=== PATIENT | male | born 1940 | race Caucasian/White ===

== ENCOUNTER 2020-09-22 07:09 | Outpatient (REF) | payer MEDICARE, SELFPAY ==
[2020-09-22 07:47] LABS: MANUAL DIFF FLAG NO
[2020-09-22 07:57] LABS: Basophils Absolute Auto 0.1 X10*3/uL (0.0-0.2); Basophils Percent Auto 0.7 % (0-2); Eosinophils Absolute Auto 0.6 X10*3/uL (0.0-0.4); Eosinophils Percent Auto 8.8 % (0-4); Hematocrit 48.2 % (42-52); Hemoglobin 17.1 g/dl (14.0-18.0); Imm Gran Abs Auto 0.02 X10*3/uL (0.00-0.03); Imm Gran Pct Auto 0.3 % (0.0-0.4); Lymphocytes Absolute Auto 1.6 X10*3/uL (1.2-4.9); Lymphocytes Percent Auto 24.1 % (20-40); Mean Corpuscular HGB Conc 35.5 g/dl (31.0-36.0); Mean Corpuscular Hemoglobin 31.4 pg (27.0-33.0); Mean Corpuscular Volume 88.4 fL (80-98); Mean Platelet Volume 11.4 fL (9.4-12.4); Monocytes Absolute Auto 0.5 X10*3/uL (0.1-1.2); Monocytes Percent Auto 7.1 % (2-11); Platelet Count 238 X10*3/uL (160-400); Red Blood Count 5.45 X10*6/uL (4.60-5.80); Red Cell Distribution Width 12.2 % (11.0-16.0); White Blood Count 6.8 X10*3/uL (4.8-10.8)
[2020-09-22 08:04] LABS: Alanine Aminotransferase 23 U/L (0-40); Albumin Level 4.1 g/dL (3.5-5.0); Alkaline Phosphatase 63 U/L (39-117); Anion Gap 15 (12-20); Aspartate Amino Transferase 26 U/L (5-37); Bilirubin Total 0.9 mg/dL (0.0-1.0); Blood Urea Nitrogen 17 mg/dL (9-16); Calcium 9.2 mg/dL (8.4-10.2); Carbon Dioxide 28 mmol/L (22-29); Chloride 99 mmol/L (96-108); Cholesterol 150 mg/dL; Estimated Glomerular Filt Rate 55; Glucose Fasting 227 mg/dL (60-99); HDL Cholesterol 36 mg/dL; LDL Cholesterol Calculated 73 mg/dl; Potassium 3.8 mmol/l (3.3-5.1); Sodium 138 mmol/L (135-145); Total Protein 6.7 g/dL (6.5-8.0); Triglycerides 209 mg/dL
[2020-09-22 08:04] LABS: Glucose Urine UA >=1000 MG/DL (NEG); Leukocyte Esterase Urine NEG (NEG); Nitrite Urine NEG (NEG); Urine Blood NEG (NEG); Urine Ketones NEG (NEG); Urine Protein 2+ MG/DL (NEG-TRACE)
[2020-09-22 08:11] LABS: Appearance Urine CLEAR; Color Urine YELLOW
[2020-09-22 08:20] LABS: RBC Urine 0 /HPF (0); WBC Urine 0 /HPF (0-4)
[2020-09-22 08:26] LABS: Prostate Specific Antigen 0.88 ng/mL (<0.05-4.0)
[2020-09-22 09:37] LABS: Estimated Average Glucose 171 mg/dL; Hemoglobin A1c % 7.6 %
[2020-09-22 09:41] LABS: Creatinine Urine 68.32 mg/dL
[2020-09-22 09:42] LABS: Reflex LDLD? No
[2020-09-22 10:01] LABS: Microalbum/Creatinine Ratio Ur 1421.2 ug/mg cr
== END 2020-09-22 07:10 | disposition home or self-care (01) ==
LOC: HO.LAB 07:09
PROVIDERS: PCP Internal Medicine; Visit Provider Internal Medicine
DX: E78.00 Pure hypercholesterolemia, unspecified (principal); E11.9 Type 2 diabetes mellitus without complications; R79.89 Other specified abnormal findings of blood chemistry; R80.9 Proteinuria, unspecified; I10 Essential (primary) hypertension; E78.1 Pure hyperglyceridemia
CPT/HCPCS: 36415; 80053; 80061; 81001; 81003; 82043; 83036; 84153; 85025

== ENCOUNTER 2021-03-30 10:08 | Outpatient (REF) | payer MEDICARE, SELFPAY ==
[2021-03-30 11:09] LABS: Estimated Average Glucose 186 mg/dL; Hemoglobin A1c % 8.1 %
[2021-03-30 11:28] LABS: Alanine Aminotransferase 34 U/L (0-40); Albumin Level 4.3 g/dL (3.5-5.0); Alkaline Phosphatase 68 U/L (39-117); Aspartate Amino Transferase 36 U/L (5-37); Bilirubin Direct 0.3 mg/dL (0.0-0.5); Cholesterol 163 mg/dL; Glucose Fasting 263 mg/dL (60-99); HDL Cholesterol 41 mg/dL; LDL Cholesterol Calculated 64 mg/dl; Total Protein 6.7 g/dL (6.5-8.0); Triglycerides 291 mg/dL
[2021-03-30 11:30] LABS: Reflex LDLD? No
== END 2021-03-30 10:09 | disposition home or self-care (01) ==
LOC: HO.LNP 10:08
PROVIDERS: Visit Provider Internal Medicine
DX: E11.9 Type 2 diabetes mellitus without complications (principal); E78.1 Pure hyperglyceridemia; E78.00 Pure hypercholesterolemia, unspecified
CPT/HCPCS: 80061; 80076; 82947; 83036

== ENCOUNTER 2021-10-13 10:22 | Outpatient (REF) | payer MEDICARE, SELFPAY ==
[2021-10-13 10:27] LABS: MANUAL DIFF FLAG NO
[2021-10-13 10:42] LABS: Basophils Percent Auto 0.5 % (0-2); Eosinophils Absolute Auto 0.6 X10*3/uL (0.0-0.4); Eosinophils Percent Auto 7.6 % (0-4); Hematocrit 44.4 % (42.0-52.0); Hemoglobin 15.5 g/dl (14.0-18.0); Imm Gran Abs Auto 0.03 X10*3/uL (0.00-0.03); Imm Gran Pct Auto 0.4 % (0.0-0.4); Lymphocytes Absolute Auto 1.4 X10*3/uL (1.2-4.9); Lymphocytes Percent Auto 18.6 % (20-40); Mean Corpuscular HGB Conc 34.9 g/dl (31.0-36.0); Mean Corpuscular Hemoglobin 30.9 pg (27.0-33.0); Mean Corpuscular Volume 88.4 fL (80.0-98.0); Mean Platelet Volume 11.7 fL (9.4-12.4); Monocytes Absolute Auto 0.7 X10*3/uL (0.1-1.2); Monocytes Percent Auto 9.2 % (2-11); Neutrophils Absolute Auto 4.9 x10*3/uL (2.0-8.3); Neutrophils Percent Auto 63.7 % (45-73); Platelet Count 266 X10*3/uL (160-400); Red Blood Count 5.02 X10*6/uL (4.60-5.80); Red Cell Distribution Width 12.4 % (11.0-16.0); White Blood Count 7.7 X10*3/uL (4.8-10.8)
[2021-10-13 11:36] LABS: Alanine Aminotransferase 24 U/L (0-40); Albumin Level 3.8 g/dL (3.5-5.0); Alkaline Phosphatase 73 U/L (39-117); Anion Gap 14 (12-20); Aspartate Amino Transferase 29 U/L (5-37); Bilirubin Total 0.6 mg/dL (0.0-1.0); Blood Urea Nitrogen 17 mg/dL (9-16); Calcium 9.2 mg/dL (8.4-10.2); Carbon Dioxide 29 mmol/L (22-29); Chloride 99 mmol/L (96-108); Cholesterol 148 mg/dL; Estimated Glomerular Filt Rate 51; Glucose Fasting 246 mg/dL (60-99); HDL Cholesterol 30 mg/dL; LDL Cholesterol Calculated 73 mg/dl; Potassium 3.5 mmol/L (3.3-5.1); Sodium 138 mmol/L (135-145); Total Protein 6.4 g/dL (6.5-8.0); Triglycerides 227 mg/dL
[2021-10-13 11:59] LABS: PSA,Total (Free>4and<10) 0.72 ng/mL (0.00-4.00)
[2021-10-13 12:20] LABS: Reflex LDLD? No
[2021-10-13 12:49] LABS: Estimated Average Glucose 192 mg/dL; Hemoglobin A1c % 8.3 %
== END 2021-10-13 10:23 | disposition home or self-care (01) ==
LOC: HO.LNP 10:22
PROVIDERS: Visit Provider Internal Medicine
DX: E11.9 Type 2 diabetes mellitus without complications (principal); E78.00 Pure hypercholesterolemia, unspecified; I10 Essential (primary) hypertension; R79.89 Other specified abnormal findings of blood chemistry; R80.9 Proteinuria, unspecified; Z12.5 Encounter for screening for malignant neoplasm of prostate
CPT/HCPCS: 80053; 80061; 83036; 84153; 85025

== ENCOUNTER 2021-10-19 15:18 | Outpatient (REF) | payer MEDICARE, SELFPAY ==
[2021-10-19 15:29] LABS: Appearance Urine CLEAR; Color Urine YELLOW; Glucose Urine UA >=1000 MG/DL (NEG); Leukocyte Esterase Urine NEG (NEG); Nitrite Urine NEG (NEG); Urine Blood NEG (NEG); Urine Ketones NEG (NEG); Urine Protein 1+ MG/DL (NEG-TRACE)
[2021-10-19 15:53] LABS: RBC Urine 0-2 /HPF (0); Squamous Epithelial Cell Urine TRACE /LPF; WBC Urine 0-2 /HPF (0-4)
[2021-10-19 16:12] LABS: Creatinine Urine 29.09 mg/dL
[2021-10-19 16:32] LABS: Microalbum/Creatinine Ratio Ur 1766.9 ug/mg cr
== END 2021-10-19 15:19 | disposition home or self-care (01) ==
LOC: HO.LNP 15:18
PROVIDERS: Visit Provider Internal Medicine
DX: I10 Essential (primary) hypertension (principal); E11.9 Type 2 diabetes mellitus without complications; R80.9 Proteinuria, unspecified
CPT/HCPCS: 81001; 82043

== ENCOUNTER 2022-10-14 10:29 | Outpatient (REF) | payer MEDICARE, SELFPAY ==
[2022-10-14 10:34] LABS: MANUAL DIFF FLAG NO
[2022-10-14 10:44] LABS: Basophils Absolute Auto 0.1 X10*3/uL (0.0-0.2); Eosinophils Absolute Auto 0.9 X10*3/uL (0.0-0.4); Eosinophils Percent Auto 11.5 % (0-4); Hematocrit 47.3 % (42.0-52.0); Hemoglobin 16.4 g/dl (14.0-18.0); Imm Gran Abs Auto 0.01 X10*3/uL (0.00-0.03); Imm Gran Pct Auto 0.1 % (0.0-0.4); Lymphocytes Absolute Auto 1.8 X10*3/uL (1.2-4.9); Mean Corpuscular HGB Conc 34.7 g/dl (31.0-36.0); Mean Corpuscular Hemoglobin 30.8 pg (27.0-33.0); Mean Corpuscular Volume 88.9 fL (80.0-98.0); Mean Platelet Volume 11.9 fL (9.4-12.4); Monocytes Absolute Auto 0.5 X10*3/uL (0.1-1.2); Monocytes Percent Auto 6.9 % (2-11); Neutrophils Absolute Auto 4.2 x10*3/uL (2.0-8.3); Neutrophils Percent Auto 56.5 % (45-73); Platelet Count 246 X10*3/uL (160-400); Red Blood Count 5.32 X10*6/uL (4.60-5.80); Red Cell Distribution Width 12.5 % (11.0-16.0); White Blood Count 7.4 X10*3/uL (4.8-10.8)
[2022-10-14 10:59] LABS: Appearance Urine Clear; Color Urine Yellow; Glucose Urine UA >=1000 mg/dL (Negative); Leukocyte Esterase Urine Negative (Negative); Nitrite Urine Negative (Negative); Specific Gravity - Urine 1.015 (1.005-1.025); UMIC TRIGGER UA YES; Urine Blood Negative (Negative); Urine Ketones Negative (Negative); Urine Protein 100 (2+) mg/dL (Neg-Trace)
[2022-10-14 11:00] LABS: Alanine Aminotransferase 18 U/L (0-40); Albumin Level 4.2 g/dL (3.5-5.0); Alkaline Phosphatase 70 U/L (39-117); Anion Gap 16 (12-20); Aspartate Amino Transferase 27 U/L (5-37); Bilirubin Total 0.8 mg/dL (0.0-1.0); Blood Urea Nitrogen 23 mg/dL (9-16); Calcium 9.5 mg/dL (8.4-10.2); Carbon Dioxide 28 mmol/L (22-29); Chloride 97 mmol/L (96-108); Cholesterol 177 mg/dL; Estimated Glomerular Filt Rate 44; Glucose Fasting 243 mg/dL (60-99); HDL Cholesterol 35 mg/dL; LDL Cholesterol Calculated 83 mg/dl; Potassium 3.7 mmol/L (3.3-5.1); Sodium 137 mmol/L (135-145); Total Protein 6.8 g/dL (6.5-8.0); Triglycerides 296 mg/dL
[2022-10-14 11:01] LABS: Bacteria Urine None Seen (None Seen); Hyaline Casts Urine 0-2 /LPF (0-2); RBC Urine 0-2 /HPF (0-2); Squamous Epithelial Cell Urine 0-2 /HPF (0-2); WBC Urine 0-5 /HPF (0-5)
[2022-10-14 11:14] LABS: Creatinine Urine 40.01 mg/dL
[2022-10-14 11:20] LABS: Estimated Average Glucose 171 mg/dL; Hemoglobin A1c % 7.6 %
[2022-10-14 11:22] LABS: PSA,Total (Free>4and<10) 0.69 ng/mL (0.00-4.00)
[2022-10-14 11:25] LABS: Microalbum/Creatinine Ratio Ur 1407.1 ug/mg cr
== END 2022-10-14 10:30 | disposition home or self-care (01) ==
LOC: HO.LNP 10:29
PROVIDERS: Visit Provider Internal Medicine
DX: Z12.5 Encounter for screening for malignant neoplasm of prostate (principal); I10 Essential (primary) hypertension; E11.9 Type 2 diabetes mellitus without complications; E78.00 Pure hypercholesterolemia, unspecified; R79.89 Other specified abnormal findings of blood chemistry
CPT/HCPCS: 80053; 80061; 81001; 82043; 83036; 84153; 85025

== ENCOUNTER 2022-11-08 12:39 | Outpatient (REF) | payer MEDICARE, SELFPAY ==
--- NOTE | ~2022-11-08 | US_ITS ---
EXAMINATION: US SCROTUM CLINICAL INFORMATION: Testicular abnormality. COMPARISON: None TECHNIQUE: A sonogram of the scrotum was performed assessing bernal-scale appearance and color Doppler flow. Spectral Doppler analysis of the arterial and venous flow were performed in the testes bilaterally. FINDINGS: RIGHT: Right testicle measures 3.6 x 2.4 x 3.1 cm, volume 14.5 mL. No focal testicular parenchymal lesions are visualized. 2 punctate calcifications are seen. Spectral Doppler analysis of the arterial and venous flow is normal in the right testis. A mobile scrotal kehinde is seen in the right sac measuring 2 mm in size. Right epididymal head is normal in size. No right hydrocele or varicocele is seen. Right epididymal Doppler flow is normal. LEFT: Left testicle measures 3.7 x 2.3 x 2.4 cm, volume 10.7 mL. No focal testicular parenchymal lesions are visualized. Spectral Doppler analysis of the arterial and venous flow is normal in the left testis. There is an extratesticular 6 mm cyst noted adjacent to the left testicle. Left epididymal head is normal in size. No left hydrocele or varicocele is seen. Left epididymal Doppler flow is normal. US/US scrotum IMPRESSION: 1. The right testicle is slightly larger than the left but no focal mass is seen. 2. Small left extratesticular cyst. 3. Small right scrotal kehinde. 4. 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 In the absence of any other risk factors for testicular cancer (e.g., personal history of testicular cancer, a father or brother with testicular cancer, history of cryptorchidism or maldescent, testicular atrophy, or other risk factors), no further imaging or biochemical follow up is necessary; all that is recommended is routine monthly testicular self-examination. However, if the patient has risk factors for testicular cancer, referral to a urologist for evaluation and determination of an optimal follow up strategy is recommended.
== END 2022-11-08 12:40 | disposition home or self-care (01) ==
LOC: HO.US 12:39
PROVIDERS: PCP Internal Medicine; Visit Provider Internal Medicine
DX: N50.9 Disorder of male genital organs, unspecified (principal)
CPT/HCPCS: 76870

== ENCOUNTER 2023-02-25 10:35 | Outpatient (REF) | payer MEDICARE, SELFPAY ==
[2023-02-25 11:03] LABS: Alanine Aminotransferase 22 U/L (0-40); Alkaline Phosphatase 67 U/L (39-117); Aspartate Amino Transferase 27 U/L (5-37); Bilirubin Direct 0.2 mg/dL (0.0-0.5); Bilirubin Total 0.9 mg/dL (0.0-1.0); Cholesterol 177 mg/dL; Glucose Fasting 254 mg/dL (60-99); HDL Cholesterol 34 mg/dL; LDL Cholesterol Calculated 75 mg/dl; Total Protein 6.5 g/dL (6.5-8.0); Triglycerides 343 mg/dL
[2023-02-25 11:13] LABS: Estimated Average Glucose 209 mg/dL; Hemoglobin A1c % 8.9 %
[2023-02-25 11:55] LABS: Reflex LDLD? No
== END 2023-02-25 10:36 | disposition home or self-care (01) ==
LOC: HO.LNP 10:35
PROVIDERS: Visit Provider Internal Medicine
DX: E78.00 Pure hypercholesterolemia, unspecified (principal); E11.9 Type 2 diabetes mellitus without complications
CPT/HCPCS: 80061; 80076; 82947; 83036

== ENCOUNTER 2023-10-18 11:13 | Outpatient (REF) | payer MEDICARE, SELFPAY ==
[2023-10-18 11:31] LABS: MANUAL DIFF FLAG NO
[2023-10-18 12:00] LABS: Basophils Percent Auto 0.5 % (0-2); Eosinophils Absolute Auto 0.5 X10*3/uL (0.0-0.4); Eosinophils Percent Auto 7.7 % (0-4); Hematocrit 44.8 % (42.0-52.0); Hemoglobin 15.8 g/dl (14.0-18.0); Imm Gran Abs Auto 0.01 X10*3/uL (0.00-0.03); Imm Gran Pct Auto 0.2 % (0.0-0.4); Lymphocytes Absolute Auto 1.7 X10*3/uL (1.2-4.9); Lymphocytes Percent Auto 29.9 % (20-40); Mean Corpuscular HGB Conc 35.3 g/dl (31.0-36.0); Mean Corpuscular Hemoglobin 30.7 pg (27.0-33.0); Mean Corpuscular Volume 87.2 fL (80.0-98.0); Mean Platelet Volume 12.2 fL (9.4-12.4); Monocytes Absolute Auto 0.5 X10*3/uL (0.1-1.2); Monocytes Percent Auto 8.1 % (2-11); Neutrophils Absolute Auto 3.1 x10*3/uL (2.0-8.3); Neutrophils Percent Auto 53.6 % (45-73); Platelet Count 221 X10*3/uL (160-400); Red Blood Count 5.14 X10*6/uL (4.60-5.80); Red Cell Distribution Width 12.6 % (11.0-16.0); White Blood Count 5.8 X10*3/uL (4.8-10.8)
[2023-10-18 12:02] LABS: Appearance Urine Clear; Color Urine Yellow; Glucose Urine UA >=1000 mg/dL (Negative); Leukocyte Esterase Urine Negative (Negative); Nitrite Urine Negative (Negative); PH 6.5 (5.0-9.0); Specific Gravity - Urine 1.015 (1.005-1.025); UMIC TRIGGER UACC YES; Urine Blood Negative (Negative); Urine Ketones Negative (Negative); Urine Protein 300 (3+) mg/dL (Neg-Trace)
[2023-10-18 12:06] LABS: Bacteria Urine None Seen (None Seen); Hyaline Casts Urine 0-2 /LPF (0-2); RBC Urine 0-2 /HPF (0-2); Squamous Epithelial Cell Urine 0-2 /HPF (0-2); WBC Urine 0-5 /HPF (0-5)
[2023-10-18 12:12] LABS: Estimated Average Glucose 183 mg/dL
[2023-10-18 12:23] LABS: Alanine Aminotransferase 25 U/L (0-40); Albumin Level 3.7 g/dL (3.5-5.0); Alkaline Phosphatase 70 U/L (39-117); Anion Gap 13 (12-20); Aspartate Amino Transferase 34 U/L (5-37); Bilirubin Direct 0.2 mg/dL (0.0-0.5); Bilirubin Total 0.6 mg/dL (0.0-1.0); Blood Urea Nitrogen 24 mg/dL (9-16); Carbon Dioxide 28 mmol/L (22-29); Chloride 101 mmol/L (96-108); Cholesterol 149 mg/dL (<200); Estimated Glomerular Filt Rate 41; Glucose Fasting 219 mg/dL (60-99); HDL Cholesterol 30 mg/dL (>40); LDL Cholesterol Calculated 71 mg/dL (<100); Potassium 3.3 mmol/L (3.3-5.1); Sodium 139 mmol/L (135-145); Total Protein 6.7 g/dL (6.5-8.0); Triglycerides 240 mg/dL (<150)
[2023-10-18 12:52] LABS: Creatinine Urine 42.66 mg/dL
== END 2023-10-18 11:14 | disposition home or self-care (01) ==
LOC: HO.LNP 11:13
PROVIDERS: Visit Provider Internal Medicine
DX: I10 Essential (primary) hypertension (principal); E11.9 Type 2 diabetes mellitus without complications; R79.89 Other specified abnormal findings of blood chemistry; E78.00 Pure hypercholesterolemia, unspecified; Z12.5 Encounter for screening for malignant neoplasm of prostate
CPT/HCPCS: 80053; 80061; 80076; 81001; 81003; 82043; 82248; 82570; 83036; 84153; 85025

== ENCOUNTER 2024-04-12 10:43 | Outpatient (REF) | payer MEDICARE, SELFPAY ==
[2024-04-12 11:02] LABS: Estimated Average Glucose 163 mg/dL; Hemoglobin A1c % 7.3 % (<6.0)
[2024-04-12 11:03] LABS: Alanine Aminotransferase 18 U/L (0-40); Albumin Level 3.8 g/dL (3.5-5.0); Alkaline Phosphatase 77 U/L (39-117); Aspartate Amino Transferase 25 U/L (5-37); Bilirubin Direct 0.2 mg/dL (0.0-0.5); Bilirubin Total 0.5 mg/dL (0.0-1.0); Cholesterol 171 mg/dL (<200); Glucose Fasting 192 mg/dL (60-99); HDL Cholesterol 36 mg/dL (>40); LDL Cholesterol Calculated 78 mg/dL (<100); Total Protein 6.8 g/dL (6.5-8.0); Triglycerides 289 mg/dL (<150)
[2024-04-12 12:35] LABS: Reflex LDLD? No
== END 2024-04-12 10:44 | disposition home or self-care (01) ==
LOC: HO.LNP 10:43
PROVIDERS: Visit Provider Internal Medicine
DX: E11.9 Type 2 diabetes mellitus without complications (principal); E78.00 Pure hypercholesterolemia, unspecified
CPT/HCPCS: 80061; 80076; 82947; 83036

== ENCOUNTER 2024-10-19 10:43 | Outpatient (REF) | payer MEDICARE, SELFPAY ==
[2024-10-19 10:46] LABS: MANUAL DIFF FLAG NO
[2024-10-19 11:23] LABS: Basophils Absolute Auto 0.1 X10*3/uL (0.0-0.2); Basophils Percent Auto 0.5 % (0-2); Eosinophils Absolute Auto 0.5 X10*3/uL (0.0-0.4); Eosinophils Percent Auto 5.3 % (0-4); Hematocrit 45.1 % (42.0-52.0); Hemoglobin 15.4 g/dl (14.0-18.0); Imm Gran Abs Auto 0.04 X10*3/uL (0.00-0.03); Imm Gran Pct Auto 0.4 % (0.0-0.4); Lymphocytes Absolute Auto 1.5 X10*3/uL (1.2-4.9); Lymphocytes Percent Auto 15.6 % (20-40); Mean Corpuscular HGB Conc 34.1 g/dl (31.0-36.0); Mean Corpuscular Hemoglobin 30.3 pg (27.0-33.0); Mean Corpuscular Volume 88.6 fL (80.0-98.0); Mean Platelet Volume 11.9 fL (9.4-12.4); Monocytes Absolute Auto 0.6 X10*3/uL (0.1-1.2); Monocytes Percent Auto 6.7 % (2-11); Neutrophils Absolute Auto 6.9 x10*3/uL (2.0-8.3); Neutrophils Percent Auto 71.5 % (45-73); Platelet Count 272 X10*3/uL (160-400); Red Blood Count 5.09 X10*6/uL (4.60-5.80); Red Cell Distribution Width 12.8 % (11.0-16.0); White Blood Count 9.6 X10*3/uL (4.8-10.8)
[2024-10-19 11:24] LABS: Appearance Urine Clear; Color Urine Yellow; Glucose Urine UA >=1000 mg/dL (Negative); Leukocyte Esterase Urine Negative (Negative); Nitrite Urine Negative (Negative); PH 6.5 (5.0-9.0); Specific Gravity - Urine 1.015 (1.005-1.025); UMIC TRIGGER UACC YES; Urine Blood Trace (Negative); Urine Ketones Negative (Negative); Urine Protein 300 (3+) mg/dL (Neg-Trace)
[2024-10-19 11:28] LABS: Bacteria Urine None Seen (None Seen); Hyaline Casts Urine 0-2 /LPF (0-2); RBC Urine 0-2 /HPF (0-2); Squamous Epithelial Cell Urine 0-2 /HPF (0-2); WBC Urine 0-5 /HPF (0-5)
[2024-10-19 11:58] LABS: Estimated Average Glucose 189 mg/dL; Hemoglobin A1C 258.3694 umol/L; Hemoglobin A1c % 8.2 % (<6.0); Total Hemoglobin (HGBA1C) 3899.0675 umol/L
[2024-10-19 12:02] LABS: Alanine Aminotransferase 12 U/L (0-40); Albumin Level 3.6 g/dL (3.5-5.0); Alkaline Phosphatase 101 U/L (39-117); Anion Gap 13 (12-20); Aspartate Amino Transferase 31 U/L (5-37); Bilirubin Direct 0.1 mg/dL (0.0-0.5); Bilirubin Total 0.5 mg/dL (0.0-1.0); Blood Urea Nitrogen 22 mg/dL (9-16); Calcium 9.1 mg/dL (8.4-10.2); Carbon Dioxide 27 mmol/L (22-29); Chloride 101 mmol/L (96-108); Cholesterol 191 mg/dL (<200); Estimated Glomerular Filt Rate 31; Glucose Fasting 211 mg/dL (60-99); HDL Cholesterol 32 mg/dL (>40); LDL Cholesterol Calculated 99 mg/dL (<100); Potassium 3.5 mmol/L (3.3-5.1); Sodium 137 mmol/L (135-145); Total Protein 6.9 g/dL (6.5-8.0); Triglycerides 302 mg/dL (<150)
[2024-10-19 12:09] LABS: PSA,Total (Free>4and<10) 0.89 ng/mL (0.00-4.00)
[2024-10-19 12:13] LABS: Microalbum/Creatinine Ratio Ur 4392.5 ug/mg cr (<30)
--- OUTSIDE RECORDS SUMMARY | 2024-10-19 12:19 | XMS_ITS ---
Author Organization Juan Manuel Castorena MD Address [address] [place] [phone] Care Team Providers Care Utility Specialist Name Role Phone Juan Manuel Castorena Primary Care Provider [phone] RESULTS Component Value Reference Range Notes Complete Blood Count Auto Di ff (Not yet reviewed by provider) Interpretation: Performing Lab:[facility], [address] [place] [phone] Notes/Report: White Blood Count 9.6 4.8-10.8 X10*3/uL Red Blood Count 5.09 4.60-5.80 X10*6/uL Hemoglobin 15.4 14.0-18.0 g/dl Hematocrit 45.1 42.0-52.0 % Mean Corpuscular Volume 88.6 80.0-98.0 fL Mean Corpuscular Hemoglobin 30.3 27.0-33.0 pg Mean Corpuscular HGB Conc 34.1 31.0-36.0 g/dl Red Cell Distribution Width 12.8 11.0-16.0 % Platelet Count 272 160-400 X10*3/uL Mean Platelet Volume 11.9 9.4-12.4 fL Neutrophils Percent Auto 71.5 45-73 % Imm Gran Pct Auto 0.4 0.0-0.4 % Lymphocytes Percent Auto 15.6 20-40 % Monocytes Percent Auto 6.7 2-11 % Eosinophils Percent Auto 5.3 0-4 % Basophils Percent Auto 0.5 0-2 % NRBC Pct Auto 0.0 0.0-0.2 /100WBC Neutrophils Absolute Auto 6.9 2.0-8.3 x10*3/u L Imm Gran Abs Auto 0.04 0.00-0.03 X10*3/uL Lymphocytes Absolute Auto 1.5 1.2-4.9 X10*3/u L Monocytes Absolute Auto 0.6 0.1-1.2 X10*3/uL Eosinophils Absolute Auto 0.5 0.0-0.4 X10*3/u L Basophils Absolute Auto 0.1 0.0-0.2 X10*3/uL NRBC Abs Auto 0.000 0.0-0.012 X10*3/uL Comprehensive [place]. Panel Fa st (Not yet reviewed by provider) Interpretation: Performing Lab:[facility], [address] [place] [phone] Notes/Report: Sodium 137 135-145 mmol/L Potassium 3.5 3.3-5.1 mmol/L Chloride 101 96-108 mmol/L Carbon Dioxide 27 22-29 mmol/L Anion Gap 13 12-20 Blood Urea Nitrogen 22 9-16 mg/dL Creatinine 2.08 0.5-1.4 mg/dL Estimated Glomerular Filt Rate 31 Chronic Kidney Disease: Estimated GFR < 60 mL/min/1.73m2 Severe Kidney Disease: Estimated GFR < 15 mL/min/1.73m2 Glucose Fasting 211 60-99 mg/dL A fasting glucose of 126 mg/dl or greater on more than one occasion is considered diagnostic of diabetes. Calcium 9.1 8.4-10.2 mg/dL Bilirubin Total 0.5 0.0-1.0 mg/dL Aspartate Amino Transferase 31 5-37 U/L Alanine Aminotransferase 12 0-40 U/L Total Protein 6.9 6.5-8.0 g/dL Albumin Level 3.6 3.5-5.0 g/dL Alkaline Phosphatase 101 39-117 U/L UA ClnCatch+Micro w/rflx Cul t (Not yet reviewed by provider) Interpretation: Performing Lab:[facility], [address] [place] [phone] Notes/Report: Urine, Clean Catch Color Urine Yellow Appearance Urine Clear PH 6.5 5.0-9.0 Glucose Urine UA >=1000 Negative mg/dL Urine Blood Trace Negative Specific Superior - Urine 1.015 1.005-1.025 Urine Protein 300 (3+) Neg-Trace mg/dL Urine Ketones Negative Negative mg/dL Nitrite Urine Negative Negative Leukocyte Esterase Urine Negative Negative RBC Urine 0-2 0-2 /HPF WBC Urine 0-5 0-5 /HPF Squamous Epithelial Cell Urine 0-2 0-2 /HPF Bacteria Urine None Seen None Seen Hyaline Casts Urine 0-2 0-2 /LPF Liver Panel Reviewed date:10/19/2024 12:13:11 PM Interpretation: Performing Lab:[facility], [address] [place] [phone] Notes/Report: Bilirubin Direct 0.1 0.0-0.5 mg/dL Lipid Panel Reviewed date:10/19/2024 12:13:50 PM Interpretation: Performing Lab:[facility], [address] [place] [phone] Notes/Report: Triglycerides 302 <150 mg/dL Desirable Triglyceride: less than 150 mg/dL Borderline High Triglyceride 150-199 mg/dL High Triglyceride: 200-499 mg/dL Very High Triglyceride: greater than or equal to 5OO mg/dL Cholesterol 191 <200 mg/dL Desirable Cholesterol: less than 200 mg/dL Borderline High Cholesterol: 200-239 mg/dL High Cholesterol: greater than 239 mg/dL LDL Cholesterol Calculated 99 <100 mg/dL Desirable LDL: less than 100 mg/dL Near Optimal/Above Optimal LDL: 110-129 mg/dL Borderline High LDL: 130-159 mg/dL High LDL: 160-189 mg/dL Very High LDL: greater than or equal to 190 mg/dL HDL Cholesterol 32 >40 mg/dL Desirable HDL: greater than 40 mg/dL Note: This HDL assay may give artificially low results in patients with liver disease. PSA,Total (Free>4and<10) Reviewed date:10/19/2024 12:17:51 PM Interpretation: Performing Lab:[address] [phone] Notes/Report: PSA,Total (Free>4and<10) 0.89 0.00-4.00 ng/mL A Free PSA was not performed: The percentage of Free PSA can be used to enhance the differentiation of prostate cancer from benign prostatic disease in subjects whose PSA levels are between 4.0 and 10.0 ng/mL. For subjects whose PSA levels are below 4.0 or above 10.0 ng/mL, the risk of prostate cancer is determined on the basis of the PSA alone. Therefore the % Free PSA is recommended only for those subjects whose PSA levels are between 4.0 and 10.0 ng/mL. PSA methodology: Guzman Alinity i Chemiluminescent Microparticle Immunoassay (CMIA) Microalbumin, Random Reviewed date:10/19/2024 12:16:57 PM Interpretation: Performing Lab:[address] [phone] Notes/Report: Creatinine Urine 42.80 Microalbumin Urine 1880.0 Verified by dilution Microalbum/Creatinine Ratio Ur 4392.5 <30 ug/mg cr Albumin/Creatinine Ratio Reference Ranges: Normal: < 30 ug/mg creatinine Microalbuminuria: 30 - 300 ug/mg creatinine Clinical Albuminuria: > 300 ug/mg creatinine Hemoglobin A1c Reviewed date:10/19/2024 12:17:43 PM Interpretation: Performing Lab:[address] [phone] Notes/Report: Hemoglobin A1c % 8.2 <6.0 % Hemoglobin A1C Reference Range Adults: 4.8 - 6.0 % Non diabetic: < 6.0 % Goal: < 7.0 % Additional Action Suggested: > 8.0 % Note: Hemoglobin A1c results are invalid for patients with abnormal amounts of HbF. Blood transfusions may impact the HbA1c concentration in the patient sample. Estimated Average Glucose 189 eAG = Estimated average glucose which is %A1C expressed as average glucose, using the formula of the [id number] Average Glucose study (ADAG), Diabetes Care, Vol.31,#8, May. 2007 REASON FOR VISIT FASTING LABS Encounters Encounter Location Date Provider Diagnosis Juan Manuel Castorena MD [address] [place] [address] [address] [place], [place] [phone] 10/19/2024 Juan Manuel Castorena Essential hypertensi on I10 ; Type 2 diabetes mellitus without complication E11.9 ; Pure hypercholesterolemia E78.00 and Elevated LFTs R79.89 ASSESSMENTS Encounter Date Diagnosis Assessment Notes Treatment Notes Treatment Clinical Notes 10/19/2024 Essential hypertensi on (ICD-10 - I10) 10/19/2024 Type 2 diabetes laurel itus without complication (ICD-10 - E11.9) 10/19/2024 Pure hypercholestero lemia (ICD-10 - E78.00) 10/19/2024 Elevated LFTs (ICD-1 0 - R79.89) PLAN OF TREATMENT Pending Test Test Name Order Date Complete Blood Count Auto Diff 5 Comprehensive [place]. Panel Fast 5 UA ClnCatch+Micro w/rflx Cult 10/19/2024 Next Appt Details Provider Name:Juan Manuel narayanan, 10/26/2024 08:30:00 AM, [address] [place] [address], [address], [place], [place], [phone],
--- OUTSIDE RECORDS SUMMARY | 2024-10-19 12:19 | XMS_ITS ---
Author Organization Juan Manuel Castorena MD Address [address] [place] [phone] Care Team Providers Care Stencil Cutter Machine Name Role Phone Juan Manuel Castorena Primary Care Provider ALLERGIES No Known Allergies RESULTS Component Value Reference Range Notes Hemoglobin A1c Reviewed date:07/23/2024 08:14:10 AM Interpretation: Performing Lab: Notes/Report: Value Hemoglobin A1c 7.5 Glucose, finger stick Reviewed date:07/23/2024 08:10:10 AM Interpretation: Performing Lab: Notes/Report: Value 203 REASON FOR VISIT 3 month dm MEDICATIONS Medication SIG (Take, Route, Frequency, Duration) Notes Start Date End Date Status Insulin Glargine 100 UNIT/ML as directed Subcutaneous 10 units per day 03/03/2023 Not-Taking guaiFENesin-Codeine 100-10 MG/5ML 10 mL as needed Orally every 6 hrs for 10 days 09/06/2022 Not-Taking Atorvastatin Calcium 20 MG TAKE 1 TABLET BY MOUTH EVERY DAY Active Paxlovid (300/100) 20 x 150 MG & 10 x 100MG as directed Orally 2 tabs nirm and 1 tab carola for 5 days 07/20/2022 Not-Taking Omeprazole 20 MG TAKE 1 CAPSULE BY MOUTH IN THE MORNING 30 MINS BEFORE BREAKFAST Active FreeStyle Lancets 0 used to test blood sugar daily invitro DX E11.9 once a day for 90 days 08/12/2016 Active FreeStyle Lite Test - use to test blood sugar DX:E11.9 In Vitro once a day for 30 days 04/17/2019 Active BD Pen Needle Micro U/F 32G X 6 MM DIRECTED UNDER SKIN DAILY 90 DAYS for 90 Active Betamethasone Dipropionate Aug 0.05 % APPLY TO AFFECTED AREA EVERY DAY for 30 Active ProAir HFA 90MCG INHALE 2 PUFFS EVERY 4 HOURS NEEDED Inhalation every 4 hrs Active Losartan Potassium 100 MG TAKE 1 TABLET BY MOUTH EVERY DAY Active metFORMIN HCl 500 MG TAKE 2 TABLETS BY MOUTH TWICE A DAY Active amLODIPine Besylate 10 MG TAKE 1 TABLET BY MOUTH EVERY DAY Active Carvedilol 25 MG TAKE 1 TABLET BY MOUTH TWICE A DAY WITH FOOD Active hydroCHLOROthiazide 25 MG TAKE 1 TABLET BY MOUTH EVERY DAY IN THE MORNING Active Farxiga 5 MG TAKE 1 TABLET BY MOUTH EVERY DAY IN THE MORNING Active Basaglar KwikPen 100 UNIT/mL, 3 mL pen as directed Subcutaneous 15 units daily 03/03/2023 Active Glimepiride 1MG TAKE 1 TABLET WITH BREAKFAST OR FIRST MAIN MEAL OF THE DAY Orally Once a day for 90 Not-Taking VITAL SIGNS BMI 29.32 kg/m2 07/23/2024 Blood pressure systolic 164 mm Hg 07/23/20 24 Blood pressure diastolic 62 mm Hg 024 Height 69.25 in 07/23/2024 Weight 200 lbs 07/23/2024 weight is down 4 pounds [facility] 04-24-24 Encounters Encounter Location Date Provider Diagnosis Juan Manuel Castorena MD [address] [place] [address] Drive [address] [place] [phone] 07/23/2024 Juan Manuel Castorena Type 2 diabetes mellitus without complication E11.9 and Essential hypertension I10 ASSESSMENTS Encounter Date Diagnosis Assessment Notes Treatment Notes Treatment Clinical Notes 07/23/2024 Type 2 diabetes mellitus without complication (ICD-10 - E11.9) 07/23/2024 Essential hypertension (ICD-10 - I10) will continue current rtegiment and will continue to monitor PLAN OF TREATMENT Medication Medication Name Sig Start Date Stop Date Notes Losartan Potassium 100 MG TAKE 1 TABLET BY MOUTH EVERY DAY metFORMIN HCl 500 MG TAKE 2 TABLETS BY M OUTH TWICE A DAY amLODIPine Besylate 10 MG TAKE 1 TABLET BY MOUTH EVERY DAY Carvedilol 25 MG TAKE 1 TABLET BY MAGO TH TWICE A DAY WITH FOOD hydroCHLOROthiazide 25 MG TAKE 1 TABLET BY MOUTH EVERY DAY IN THE MORNING Farxiga 5 MG TAKE 1 TABLET BY MAGO TH EVERY DAY IN THE MORNING Basaglar KwikPen 100 UNIT/mL , 3 mL pen as directed Subcutaneous 15 units daily 03/03/2023 Treatment Notes Assessment Notes Essential hypertension will continue cur rent rtegiment and will continue to monitor Next Appt Details Provider Name:Juan Manuel narayanan, 10/26/2024 08:30:00 AM, [address] [facility], [address], [place], [place], [phone], Progress Notes * Examination Category Sub-Category Detail Notes General Examination GENERAL APPEARANCE: alert, w ell hydrated, in no distress HEAD: normocephalic HEART: regular rate and rhy thm, no murmurs, rubs, gallops LUNGS: no wheezes, rales, r honchi, good air movement, clear to auscultation bilaterally SKIN: good turgor
--- OUTSIDE RECORDS SUMMARY | 2024-10-19 12:20 | XMS_ITS | Patient Health Record ---
Author Organization Juan Manuel Castorena MD Address [address] [place] [phone] Care Team Providers Care Rubber Process Hand Name Role Phone Juan Manuel Castorena Primary Care Provider ALLERGIES No Known Allergies RESULTS Component Value Reference Range Notes Hemoglobin A1c Reviewed date:01/19/2024 08:44:38 AM Interpretation: Performing Lab: Notes/Report: Value Hemoglobin A1c 9.8 Hemoglobin A1c Reviewed date:07/23/2024 08:14:10 AM Interpretation: Performing Lab: Notes/Report: Value Hemoglobin A1c 7.5 Glucose, finger stick Reviewed date:10/24/2023 08:17:05 AM Interpretation: Performing Lab: Notes/Report: Value 232 Glucose, finger stick Reviewed date:01/19/2024 08:36:43 AM Interpretation: Performing Lab: Notes/Report: Value 271 Hold Gold Reviewed date:04/12/2024 12:39:30 PM Interpretation: Performing Lab:[facility], [address] [place] [phone] Notes/Report: Hold Gold See Note Specimen held untested for 24 hours; Call to request Chemistry testing. Liver Panel Reviewed date:04/12/2024 12:39:50 PM Interpretation: Performing Lab:[facility], [address] [place] [phone] Notes/Report: Bilirubin Total 0.5 0.0-1.0 mg/dL Bilirubin Direct 0.2 0.0-0.5 mg/dL Aspartate Amino Transferase 25 5-37 U/L Alanine Aminotransferase 18 0-40 U/L Total Protein 6.8 6.5-8.0 g/dL Albumin Level 3.8 3.5-5.0 g/dL Alkaline Phosphatase 77 39-117 U/L Glucose Fasting Reviewed date:04/12/2024 12:39:41 PM Interpretation: Performing Lab:[facility], [address] [place] [phone] Notes/Report: Glucose Fasting 192 60-99 mg/dL A fasting glucose of 126 mg/dl or greater on more than one occasion is considered diagnostic of diabetes. Lipid Panel with Reflex Reviewed date:04/12/2024 12:40:14 PM Interpretation: Performing Lab:[facility], [address] [place] [phone] Notes/Report: Triglycerides 289 <150 mg/dL Desirable Triglyceride: less than 150 mg/dL Borderline High Triglyceride 150-199 mg/dL High Triglyceride: 200-499 mg/dL Very High Triglyceride: greater than or equal to 5OO mg/dL Cholesterol 171 <200 mg/dL Desirable Cholesterol: less than 200 mg/dL Borderline High Cholesterol: 200-239 mg/dL High Cholesterol: greater than 239 mg/dL LDL Cholesterol Calculated 78 <100 mg/dL Desirable LDL: less than 100 mg/dL Near Optimal/Above Optimal LDL: 110-129 mg/dL Borderline High LDL: 130-159 mg/dL High LDL: 160-189 mg/dL Very High LDL: greater than or equal to 190 mg/dL HDL Cholesterol 36 >40 mg/dL Desirable HDL: greater than 40 mg/dL Note: This HDL assay may give artificially low results in patients with liver disease. Hemoglobin A1c Reviewed date:04/12/2024 12:40:04 PM Interpretation: Performing Lab:[facility], [address] [place] [phone] Notes/Report: Hemoglobin A1c % 7.3 <6.0 % Hemoglobin A1C Reference Range Adults: 4.8 - 6.0 % Non diabetic: < 6.0 % Goal: < 7.0 % Additional Action Suggested: > 8.0 % Note: Hemoglobin A1c results are invalid for patients with abnormal amounts of HbF. Blood transfusions may impact the HbA1c concentration in the patient sample. Estimated Average Glucose 163 eAG = Estimated average glucose which is %A1C expressed as average glucose, using the formula of the A9V-Fhdxsoe Average Glucose study (ADAG), Diabetes Care, Vol.31,#8, May. 2007 Glucose, finger stick Reviewed date:07/23/2024 08:10:10 AM Interpretation: Performing Lab: Notes/Report: Value 203 Complete Blood Count Auto Di ff (Not yet reviewed by provider) Interpretation: Performing Lab:[facility], [address] [place] [phone] Notes/Report: White Blood Count 9.6 4.8-10.8 X10*3/uL [...] NRBC Abs Auto 0.000 0.0-0.012 X10*3/uL Comprehensive [place]. Panel Fa st (Not yet reviewed by provider) Interpretation: Performing Lab:[facility], [address] [place] [phone] Notes/Report: Sodium 137 135-145 mmol/L Potassium 3.5 [...] (Not yet reviewed by provider) Interpretation: Performing Lab:[facility], [address] [place] [phone] Notes/Report: Urine, Clean Catch Color Urine Yellow Appearance Urine Clear PH 6.5 5.0-9.0 Glucose Urine UA >=1000 Negative mg/dL Urine Blood Trace Negative Specific [place] - Urine 1.015 1.005-1.025 Urine Protein 300 (3+) Neg-Trace mg/dL Urine Ketones Negative Negative mg/dL Nitrite Urine Negative Negative Leukocyte Esterase Urine Negative Negative RBC Urine 0-2 0-2 /HPF WBC Urine 0-5 0-5 /HPF Squamous Epithelial Cell Urine 0-2 0-2 /HPF Bacteria Urine None Seen None Seen Hyaline Casts Urine 0-2 0-2 /LPF Liver Panel Reviewed date:10/19/2024 12:13:11 PM Interpretation: Performing Lab:[facility], [address] [place] [phone] Notes/Report: Bilirubin Direct 0.1 0.0-0.5 mg/dL Lipid Panel Reviewed date:10/19/2024 12:13:50 PM Interpretation: Performing Lab:[facility], [address] [place] [phone] Notes/Report: Triglycerides 302 <150 mg/dL Desirable Triglyceride: [...] (Free>4and<10) Reviewed date:10/19/2024 12:17:51 PM Interpretation: Performing Lab:[facility], [address] [place] [phone] Notes/Report: PSA,Total (Free>4and<10) 0.89 0.00-4.00 ng/mL A [...] Random Reviewed date:10/19/2024 12:16:57 PM Interpretation: Performing Lab:[facility], [address] [place] [phone] Notes/Report: Creatinine Urine 42.80 Microalbumin Urine 1880.0 Verified by dilution Microalbum/Creatinine Ratio Ur 4392.5 <30 ug/mg cr Albumin/Creatinine Ratio Reference Ranges: Normal: < 30 ug/mg creatinine Microalbuminuria: 30 - 300 ug/mg creatinine Clinical Albuminuria: > 300 ug/mg creatinine Hemoglobin A1c Reviewed date:10/19/2024 12:17:43 PM Interpretation: Performing Lab:[facility], [address] [place] [phone] Notes/Report: Hemoglobin A1c % 8.2 <6.0 % [...] average glucose, using the formula of the Q0U-Hfquwni Average Glucose study (ADAG), Diabetes Care, Vol.31,#8, May. 2007 REASON FOR REFERRAL No Information MEDICATIONS Medication SIG (Take, Route, Frequency, Duration) Notes Start Date End Date Status Carvedilol 25 MG TAKE 1 TABLET BY MOUTH TWICE A DAY WITH FOOD for 90 Active Losartan Potassium 100 MG TAKE 1 TABLET BY MOUTH EVERY DAY Active FreeStyle Lancets 0 used to test blood sugar daily invitro DX E11.9 once a day for 90 days 08/12/2016 Active Farxiga 5 MG TAKE 1 TABLET BY MOUTH EVERY DAY IN THE MORNING Active FreeStyle Lite Test - use to test blood sugar DX:E11.9 In Vitro once a day for 30 days 04/17/2019 Active Basaglar KwikPen 100 UNIT/mL, 3 mL pen as directed Subcutaneous 15 units daily 03/03/2023 Active BD Pen Needle Micro U/F 32G X 6 MM DIRECTED UNDER SKIN DAILY 90 DAYS for 90 Active metFORMIN HCl 500 MG TAKE 2 TABLETS BY MOUTH TWICE A DAY Active Betamethasone Dipropionate Aug 0.05 % APPLY TO AFFECTED AREA EVERY DAY for 30 Active Insulin Glargine 100 UNIT/ML as directed Subcutaneous 10 units per day 03/03/2023 Not-Taking amLODIPine Besylate 10 MG TAKE 1 TABLET BY MOUTH EVERY DAY Active ProAir HFA 90MCG INHALE 2 PUFFS EVERY 4 HOURS NEEDED Inhalation every 4 hrs Active guaiFENesin-Codeine 100-10 MG/5ML 10 mL as needed Orally every 6 hrs for 10 days 09/06/2022 Not-Taking Atorvastatin Calcium 20 MG TAKE 1 TABLET BY MOUTH EVERY DAY Active Paxlovid (300/100) 20 x 150 MG & 10 x 100MG as directed Orally 2 tabs nirm and 1 tab carola for 5 days 07/20/2022 Not-Taking hydroCHLOROthiazide 25 MG TAKE 1 TABLET BY MOUTH EVERY DAY IN THE MORNING Active Omeprazole 20 MG TAKE 1 CAPSULE BY MOUTH IN THE MORNING 30 MINS BEFORE BREAKFAST Active Glimepiride 1MG TAKE 1 TABLET WITH BREAKFAST OR FIRST MAIN MEAL OF THE DAY Orally Once a day for 90 Not-Taking IMMUNIZATIONS Vaccine Route Administration Date Status Comme nts Shingles IM Intramuscular 03/07/2012 Administered Flu Vaccine IM Intramuscular 06/20/2012 Administered PPSV23 (Pnemovax) IM Intramuscular 06/20/2012 Administered Prevnar 13 IM Intramuscular 01/22/2013 Administered Flu Vaccine IM Intramuscular 07/27/2013 Administered Fluarix Quadrivalent IM Intramuscular 07/15/2014 Administe red Fluarix Quadrivalent IM Intramuscular 07/29/2015 Administe red Fluarix Quadrivalent IM Intramuscular 08/03/2016 Administe red Fluarix Quadrivalent IM Intramuscular 06/28/2017 Administe red PPSV23 (Pnemovax) IM Intramuscular 08/15/2017 Administered TDaP Unknown 10/13/2017 Administered [facility] Fluarix Quadrivalent IM Intramuscular 07/03/2018 Administe red Shingrix IM Intramuscular 07/10/2018 Administered Shingrix IM Intramuscular 09/11/2018 Administered Fluarix Quadrivalent IM Intramuscular 06/25/2019 Administe red Influenza High Dose IM Intramuscular 06/26/2020 Administer ed SARS-COV-2 Pfizer Unknown 11/20/2020 Administered SARS-COV-2 Pfizer Unknown 12/11/2020 Administered Influenza High Dose IM Intramuscular 06/26/2021 Administer ed SARS-COV-2 Pfizer Unknown 07/29/2021 Administered Influenza High Dose IM Intramuscular 06/29/2022 Administer ed PPSV23 (Pnemovax) IM Intramuscular 02/25/2023 Administered Influenza High Dose IM Intramuscular 06/24/2023 Administer ed Influenza High Dose IM Intramuscular 06/25/2024 Administer ed Flu Vaccine Unknown 07/15/2014 Pending SOCIAL HISTORY Tobacco Use: Social History Observation Description Date Details (start date - stop date) Former Smoker NA - NA Sex Assigned At : Social History Observation Description Sex Assigned At Unknown Tobacco Use/Smoking Question Answer Notes Patient is a former smoker How long has it been since y ou last smoked? > 10 years Additional Findings: Tobacco Non-User Fo rmer smoker, currently using no form of tobacco PROBLEMS Problem Type ICD Code Onset Dates Problem Status W/U Status Risk SNOMED Code Notes Problem Gastro-esophageal reflux disease without esophagitis (K21.9) Active confirmed 581450040 Problem Arthritis (M19.90) Active confirmed 372 3001 Problem Elevated LFTs (R79.89) Active confirmed 153124420 Problem Essential hypertensi on (I10) Active confirmed 33811799 Problem Mild intermittent asthma without complication (J45.20) Active confirmed 617699768 Problem Type 2 diabetes mellitus without complication (E11.9) Active confirmed 33856656 Problem Low HDL (under 40) (E78.6) Active confirmed 751984918 Problem Esophageal dysmotili ty (K22.4) Active confirmed 246761654 Problem 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) Active confirmed 41565011 Problem Peptic ulcer (K27.9) Active confirmed 1 6960628 Problem Hypertriglyceridemia (E78.1) Active confirmed 687041063 Problem Pure hypercholesterolemia (E78.00) Active confirmed 430991238 Problem Proteinuria, unspecified type (R80.9) Active confirmed 87517712 Problem 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 confirmed 92209528 Problem 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) Active confirmed 17428757 VITAL SIGNS Blood pressure diastolic 62 mm Hg 07/23/2024 panda ght is down 4 pounds since 04-24-24 Height 69.25 in 07/23/2024 weight is down 4 pounds since 04-24-24 Blood pressure systolic 164 mm Hg 07/23/2024 weig ht is down 4 pounds since 04-24-24 Weight 200 lbs 07/23/2024 weight is down 4 pounds since 04-24-24 BMI 29.32 kg/m2 07/23/2024 weight is down 4 pounds since 04-24-24 Encounters Encounter Location Date Provider Diagnosis Juan Manuel Castorena MD [address] [place] [id number] 10/24/2023 Juan Manuel Castorena Type 2 diabetes laurel itus without complication E11.9 ; Inguinal hernia, left K40.90 ; Controlled type 2 diabetes with neuropathy E11.40 ; Type 2 diabetes with nephropathy E11.21 ; Essential hypertension I10 ; Pure hypercholesterolemia E78.00 and Gastro-esophageal reflux disease without esophagitis K21.9 Juan Manuel Castorena MD [address] [place] [id number] 04/12/2024 Juan Manuel Castorena Type 2 diabetes laurel itus without complication E11.9 and Pure hypercholesterolemia E78.00 Juan Manuel Castorena MD [address] [place] [id number] 10/19/2024 Juan Manuel Castorena Essential hypertensi on I10 ; Type 2 diabetes mellitus without complication E11.9 ; Pure hypercholesterolemia E78.00 and Elevated LFTs R79.89 Juan Manuel Castorena MD [address] [place] [id number] 06/25/2024 Juan Manuel Castorena Encounter for immuni zation Z23 Juan Manuel Castorena MD [address] [place] [id number] 01/19/2024 Juan Manuel Castorena Type 2 diabetes laurel itus without complication E11.9 ; Intrinsic eczema L20.84 and Essential hypertension I10 Juan Manuel Castorena MD [address] [place] [address] [id number] 04/24/2024 Juan Manuel Castorena Type 2 diabetes laurel itus without complication E11.9 ; Pure hypercholesterolemia E78.00 ; Essential hypertension I10 ; Mild intermittent asthma without complication J45.20 and Gastro-esophageal reflux disease without esophagitis K21.9 Juan Manuel Castorena MD [address] [place] [address] [id number] 02/10/2024 Juan Manuel Castorena MD [address] [place] [address] [id number] 07/23/2024 Juan Manuel Castorena Type 2 diabetes laurel itus without complication E11.9 and Essential hypertension I10 Juan Manuel Castorena MD [address] [place] [address] [address] [place], [place] [id number] 02/03/2024 Juan Manuel Castorena Other acute sinusiti s, recurrence not specified J01.80 ASSESSMENTS Encounter Date Diagnosis Assessment Notes Treatment Notes Treatment Clinical Notes 10/24/2023 Type 2 diabetes laurel itus without complication (ICD-10 - E11.9) stable, will continue current regiment 10/24/2023 Inguinal hernia, lef t (ICD-10 - K40.90) told him what to watch for in case of strangulation 04/12/2024 Type 2 diabetes laurel itus without complication (ICD-10 - E11.9) 04/12/2024 Pure hypercholestero lemia (ICD-10 - E78.00) 10/19/2024 Essential hypertensi on (ICD-10 - I10) 06/25/2024 Encounter for immunization (ICD-10 - Z23) 01/19/2024 Type 2 diabetes laurel itus without complication (ICD-10 - E11.9) patient verbalized understanding of change in dose of medication and directions for use 01/19/2024 Intrinsic eczema (IC D-10 - L20.84) stable, will continue current regiment 04/24/2024 Type 2 diabetes laurel itus without complication (ICD-10 - E11.9) a1c is doing a lot better, will continue current regiment and will continue to monitor 04/24/2024 Pure hypercholestero lemia (ICD-10 - E78.00) well controlled, will continue current regiment 07/23/2024 Essential hypertensi on (ICD-10 - I10) will continue current rtegiment and will continue to monitor 07/23/2024 Type 2 diabetes laurel itus without complication (ICD-10 - E11.9) 02/03/2024 Other acute sinusiti s, recurrence not specified (ICD-10 - J01.80) will try zyrtec and see if that helps. if not will try antibiotic 10/24/2023 Controlled type 2 diabetes with neuropathy (ICD-10 - E11.40) stable 10/19/2024 Type 2 diabetes laurel itus without complication (ICD-10 - E11.9) 01/19/2024 Essential hypertensi on (ICD-10 - I10) doing well, will continue current regiment 04/24/2024 Essential hypertensi on (ICD-10 - I10) doing well, will contnue current regiment 10/24/2023 Type 2 diabetes with nephropathy (ICD-10 - E11.21) continue with present regiment 10/19/2024 Pure hypercholestero lemia (ICD-10 - E78.00) 04/24/2024 Mild intermittent as thma without complication (ICD-10 - J45.20) stable, no issues, will continue current regiment 10/24/2023 Essential hypertensi on (ICD-10 - I10) stable, will continue current regiment 10/19/2024 Elevated LFTs (ICD-1 0 - R79.89) 04/24/2024 Gastro-esophageal re flux disease without esophagitis (ICD-10 - K21.9) doing well, will continue current regiment 10/24/2023 Pure hypercholestero lemia (ICD-10 - E78.00) stable, will continue current regiment 10/24/2023 Gastro-esophageal re flux disease without esophagitis (ICD-10 - K21.9) stable, will continue current regiment PLAN OF TREATMENT Pending Test Test Name Order Date XR GI SERIES 06/02/2021 Complete Blood Count Auto Diff 5 Comprehensive [place]. Panel Fast 5 US scrotum 10/21/2022 UA ClnCatch+Micro w/rflx Cult 10/19/2024 Next Appt Details Provider Name:Juan Manuel narayanan, 10/26/2024 08:30:00 AM, [address] [facility], [address], [place], [place], [phone], Insurance Providers Payer Name Payer Address Payer Phone Subscriber Number Group Number Insured Name Patient Relationship to Insured Coverage Start Date Coverage End Date MEDICARE NHIC [address] [place] [address] [id number] SUKHWINDERCIERA Machuca Self - patient is the insured [employer]IELD [address] [place], [place] [id number] CIERA MUNIZ Self - patient is the insured MEDICAL (GENERAL) HISTORY Medical History History ICD Code tribenzor is amlodipine,benicar and hctz refuses colonoscopy , 2013, 2014 (DON'T ASK AGAIN); 09/20/19 refused cologuard
--- OUTSIDE RECORDS SUMMARY | 2024-10-19 12:20 | XMS_ITS ---
Author Organization Juan Manuel Castorena MD Address [address] [place] [phone] Care Team Providers Care Host/Hostess Name Role Phone Juan Manuel Castorena Primary Care Provider REASON FOR VISIT HDF IMMUNIZATIONS Vaccine Route Administration Date Status Comme nts Influenza High Dose IM Intramuscular 06/25/2024 Administer ed Encounters Encounter Location Date Provider Diagnosis Juan Manuel Castorena MD [address] [place] [address] [phone] 06/25/2024 Juan Manuel Castorena Encounter for immunization Z23 ASSESSMENTS Encounter Date Diagnosis Assessment Notes Treatment Notes Treatment Clinical Notes 06/25/2024 Encounter for immunization (ICD-10 - Z23) PLAN OF TREATMENT Next Appt Details Provider Name:Juan Manuel Huffman ier, 10/26/2024 08:30:00 AM, [address] [place] [address], [place] [address], [place], [place], [phone],
== END 2024-10-19 10:44 | disposition home or self-care (01) ==
LOC: HO.LNP 10:43
PROVIDERS: Visit Provider Internal Medicine
DX: I10 Essential (primary) hypertension (principal); E11.9 Type 2 diabetes mellitus without complications; E78.00 Pure hypercholesterolemia, unspecified; R79.89 Other specified abnormal findings of blood chemistry; Z12.5 Encounter for screening for malignant neoplasm of prostate
CPT/HCPCS: 80053; 80061; 80076; 81001; 82043; 82248; 82570; 83036; 84153; 85025

== ENCOUNTER 2024-10-26 12:14 | Outpatient (REF) | payer MEDICARE, SELFPAY ==
--- OUTSIDE RECORDS SUMMARY | 2024-10-26 12:17 | XMS_ITS ---
Author Organization Juan Manuel Castorena MD Address [address] [place] [phone] Care Team Providers Care Cnmt Name Role Phone Juan Manuel Castorena Primary [...] lbs 07/23/2024 weight is down 4 pounds [facility] 04-24-24 Encounters Encounter Location Date Provider Diagnosis Juan Manuel Castorena MD [address] [place] [address] Drive [address] [place] [phone] 07/23/2024 Juan Manuel Castorena Type 2 diabetes [...] Next Appt Details Provider Name:Juan Manuel narayanan, 01/22/2025 08:30:00 AM, [address] [place] [address], [place] [address], [place], [place], [phone], Provider Name:Juan Manuel narayanan, 04/18/2025 07:30:00 AM, [address] [place] [address], [address], [phone], Provider Name:Juan Manuel narayanan, 04/26/2025 09:00:00 AM, [address] [place] [address], [address], [phone], Provider Name:Juan Manuel narayanan, 10/25/2025 07:30:00 AM, [address] [place] [address], [place] [address], [place], [place], [phone], Provider Name:Juan Manuel narayanan, 11/01/2025 08:30:00 AM, [address] [place] [address], [phone], Progress Notes * Examination Category Sub-Category Detail Notes General Examination GENERAL APPEARANCE: alert, w ell hydrated, in no distress HEAD: normocephalic HEART: regular rate and rhy thm, no murmurs, rubs, gallops LUNGS: no wheezes, rales, r honchi, good air movement, clear to auscultation bilaterally SKIN: good turgor
--- OUTSIDE RECORDS SUMMARY | 2024-10-26 12:17 | XMS_ITS ---
Author Organization Juan Manuel Castorena MD Address [address] [place] [phone] Care Team Providers Care Refund Clerk Name Role Phone Juan Manuel Castorena Primary Care Provider RESULTS Component Value Reference Range Notes Complete Blood Count Auto Di ff Reviewed date:10/19/2024 12:22:35 PM Interpretation: Performing Lab:[facility], [address] [place] [phone] Notes/Report: White Blood Count 9.6 4.8-10.8 X10*3/uL [...] NRBC Abs Auto 0.000 0.0-0.012 X10*3/uL Comprehensive [place]. Panel Fa st Reviewed date:10/19/2024 12:27:30 PM Interpretation: Performing Lab:[facility], [address] [place] [phone] Notes/Report: Sodium 137 135-145 mmol/L Potassium 3.5 [...] 3.5-5.0 g/dL Alkaline Phosphatase 101 39-117 U/L Liver Panel Reviewed date:10/19/2024 12:13:11 PM Interpretation: Performing Lab:[facility], [address] [place] [phone] Notes/Report: Bilirubin Direct 0.1 0.0-0.5 mg/dL Lipid Panel Reviewed date:10/19/2024 12:13:50 PM Interpretation: Performing Lab:[facility], [address] [place] [phone] Notes/Report: Triglycerides 302 <150 mg/dL Desirable Triglyceride: [...] (Free>4and<10) Reviewed date:10/19/2024 12:17:51 PM Interpretation: Performing Lab:[facility], [address] [place] [phone] Notes/Report: PSA,Total (Free>4and<10) 0.89 0.00-4.00 ng/mL A [...] Random Reviewed date:10/19/2024 12:16:57 PM Interpretation: Performing Lab:[facility], [address] [place] [phone] Notes/Report: Creatinine Urine 42.80 Microalbumin Urine 1880.0 Verified by dilution Microalbum/Creatinine Ratio Ur 4392.5 <30 ug/mg cr Albumin/Creatinine Ratio Reference Ranges: Normal: < 30 ug/mg creatinine Microalbuminuria: 30 - 300 ug/mg creatinine Clinical Albuminuria: > 300 ug/mg creatinine Hemoglobin A1c Reviewed date:10/19/2024 12:17:43 PM Interpretation: Performing Lab:[facility], [address] [place] [phone] Notes/Report: Hemoglobin A1c % 8.2 <6.0 % [...] average glucose, using the formula of the S3C-Kgbftna Average Glucose study (ADAG), Diabetes Care, Vol.31,#8, May. 2007 UA ClnCatch+Micro w/rflx Cul t Reviewed date:10/19/2024 12:47:07 PM Interpretation: Performing Lab:[facility], [address] [place] [phone] Notes/Report: Urine, Clean Catch Color Urine Yellow Appearance Urine Clear PH 6.5 5.0-9.0 Glucose Urine UA >=1000 Negative mg/dL Urine Blood Trace Negative Specific [place] - Urine 1.015 1.005-1.025 Urine Protein 300 (3+) Neg-Trace mg/dL Urine Ketones Negative Negative mg/dL Nitrite Urine Negative Negative Leukocyte Esterase Urine Negative Negative RBC Urine 0-2 0-2 /HPF WBC Urine 0-5 0-5 /HPF Squamous Epithelial Cell Urine 0-2 0-2 /HPF Bacteria Urine None Seen None Seen Hyaline Casts Urine 0-2 0-2 /LPF REASON FOR VISIT FASTING LABS Encounters Encounter Location Date Provider Diagnosis Juan Manuel Castorena MD [address] [place] [address] [address] [place], [place] [phone] 10/19/2024 Juan Manuel Castorena Essential hypertensi on [...] (ICD-1 0 - R79.89) PLAN OF TREATMENT Next Appt Details Provider Name:Juan Manuel narayanan, 01/22/2025 08:30:00 AM, [address] [place] [address], [place] [address], JONN[place] Massey, [phone], Provider Name:Juan Manuel narayanan, 04/18/2025 07:30:00 AM, [address] [place] [address], Suite [facility], [place], [phone], Provider Name:Juan Manuel narayanan, 04/26/2025 09:00:00 AM, [address] [place] [address], [place] [address], [place], [phone], Provider Name:Juan Manuel narayanan, 10/25/2025 07:30:00 AM, [address] [place] [address], [address] [place], [phone], Provider Name:Juan Manuel narayanan, 11/01/2025 08:30:00 AM, [address] [place] [address], [address] [place] Mas[place], [phone],
--- OUTSIDE RECORDS SUMMARY | 2024-10-26 12:17 | XMS_ITS | Patient Health Record ---
Author Organization Juan Manuel Castorena MD Address [address] [place], [place] [id number] Care Team Providers Care Card Room Manager Name Role Phone Juan Manuel Castorena Primary Care Provider [phone] ALLERGIES No Known Allergies RESULTS Component Value Reference Range Notes Hemoglobin A1c Reviewed date:01/19/2024 08:44:38 AM Interpretation: Performing Lab: Notes/Report: Value Hemoglobin A1c 9.8 Hemoglobin A1c Reviewed date:07/23/2024 08:14:10 AM Interpretation: Performing Lab: Notes/Report: Value Hemoglobin A1c 7.5 Glucose, finger stick Reviewed date:01/19/2024 08:36:43 AM Interpretation: Performing Lab: Notes/Report: Value 271 Hold Gold Reviewed date:04/12/2024 12:39:30 PM Interpretation: Performing Lab:[facility], [address] [place] [phone] Notes/Report: Hold Gold See Note Specimen held untested for 24 hours; Call to request Chemistry testing. Liver Panel Reviewed date:04/12/2024 12:39:50 PM Interpretation: Performing Lab:[facility], [address] [place] [phone] Notes/Report: Bilirubin Total 0.5 0.0-1.0 mg/dL Bilirubin Direct 0.2 0.0-0.5 mg/dL Aspartate Amino Transferase 25 5-37 U/L Alanine Aminotransferase 18 0-40 U/L Total Protein 6.8 6.5-8.0 g/dL Albumin Level 3.8 3.5-5.0 g/dL Alkaline Phosphatase 77 39-117 U/L Glucose Fasting Reviewed date:04/12/2024 12:39:41 PM Interpretation: Performing Lab:[address] [phone] Notes/Report: Glucose Fasting 192 60-99 mg/dL A fasting glucose of 126 mg/dl or greater on more than one occasion is considered diagnostic of diabetes. Lipid Panel with Reflex Reviewed date:04/12/2024 12:40:14 PM Interpretation: Performing Lab:[facility], [address] [place] [phone] Notes/Report: Triglycerides 289 <150 mg/dL Desirable Triglyceride: [...] A1c Reviewed date:04/12/2024 12:40:04 PM Interpretation: Performing Lab:[address] [phone] Notes/Report: Hemoglobin A1c % 7.3 <6.0 % [...] average glucose, using the formula of the N2E-Ybehrsa Average Glucose study (ADAG), Diabetes Care, Vol.31,#8, May. 2007 Glucose, finger stick Reviewed date:07/23/2024 08:10:10 AM Interpretation: Performing Lab: Notes/Report: Value 203 Complete Blood Count Auto Di ff Reviewed date:10/19/2024 12:22:35 PM Interpretation: Performing Lab:[facility], [address] [place] [phone] Notes/Report: White Blood Count 9.6 4.8-10.8 X10*3/uL [...] NRBC Abs Auto 0.000 0.0-0.012 X10*3/uL Comprehensive [place]. Panel Fa st Reviewed date:10/19/2024 12:27:30 PM Interpretation: Performing Lab:[facility], [address] [place] [phone] Notes/Report: Sodium 137 135-145 mmol/L Potassium 3.5 [...] Panel Reviewed date:10/19/2024 12:13:11 PM Interpretation: Performing Lab:[facility], [address] [place] [phone] Notes/Report: Bilirubin Direct 0.1 0.0-0.5 mg/dL Lipid Panel Reviewed date:10/19/2024 12:13:50 PM Interpretation: Performing Lab:[facility], [address] [place] [phone] Notes/Report: Triglycerides 302 <150 mg/dL Desirable Triglyceride: [...] (Free>4and<10) Reviewed date:10/19/2024 12:17:51 PM Interpretation: Performing Lab:[address] [address] Notes/Report: PSA,Total (Free>4and<10) 0.89 0.00-4.00 ng/mL A [...] Random Reviewed date:10/19/2024 12:16:57 PM Interpretation: Performing Lab:[address] [address] Notes/Report: Creatinine Urine 42.80 Microalbumin Urine 1880.0 Verified by dilution Microalbum/Creatinine Ratio Ur 4392.5 <30 ug/mg cr Albumin/Creatinine Ratio Reference Ranges: Normal: < 30 ug/mg creatinine Microalbuminuria: 30 - 300 ug/mg creatinine Clinical Albuminuria: > 300 ug/mg creatinine Hemoglobin A1c Reviewed date:10/19/2024 12:17:43 PM Interpretation: Performing Lab:[address] [phone] Notes/Report: Hemoglobin A1c % 8.2 <6.0 % [...] average glucose, using the formula of the P0J-Glhjapr Average Glucose study (ADAG), Diabetes Care, Vol.31,#8, May. 2007 UA ClnCatch+Micro w/rflx Cul t Reviewed date:10/19/2024 12:47:07 PM Interpretation: Performing Lab:[facility], [address] [place] [phone] Notes/Report: Urine, Clean Catch Color Urine Yellow Appearance Urine Clear PH 6.5 5.0-9.0 Glucose Urine UA >=1000 Negative mg/dL Urine Blood Trace Negative Specific [place] - Urine 1.015 1.005-1.025 Urine Protein 300 (3+) Neg-Trace mg/dL Urine Ketones Negative Negative mg/dL Nitrite Urine Negative Negative Leukocyte Esterase Urine Negative Negative RBC Urine 0-2 0-2 /HPF WBC Urine 0-5 0-5 /HPF Squamous Epithelial Cell Urine 0-2 0-2 /HPF Bacteria Urine None Seen None Seen Hyaline Casts Urine 0-2 0-2 /LPF REASON FOR REFERRAL Reason Elevated creatinine Diagnosis 1 Creatinine elevation (R79.89) Referral Organization Juan Manuel Castorena MD Referring Provider First Name Juan Manuel Referring Provider Last Name Raffaele Referring Provider Speciality Internal edicine Referred Provider Maria Rodrigues Referred Provider Specialty Nephrology General Notes Nancy Trivedi 0 10/26/2024 11:58:11 AM > info visit Referral Priority Routine Reason Pruritic rash Diagnosis 1 Pruritic rash (L28.2 ) Referral Organization Juan Manuel Castorena MD Referring Provider First Name Juan Manuel Referring Provider Last Name Raffaele Referring Provider Speciality Internal edicine Referred Provider Aristeo Ruth Referred Provider Specialty Dermatology General Notes Nancy Trivedi 0 10/26/2024 08:39:59 AM >patient wants [place] office info faxed Referral Priority Routine MEDICATIONS Medication SIG (Take, Route, Frequency, Duration) Notes Start Date End Date Status Atorvastatin Calcium 20 MG TAKE 1 TABLET [...] Orally Once a day for 90 Not-Taking Farxiga 5 MG TAKE 1 TABLET BY MOUTH EVERY DAY IN THE MORNING Active Basaglar KwikPen 100 UNIT/mL, 3 mL pen as directed Subcutaneous 15 units daily 03/03/2023 Active FreeStyle Lite Test - use to test blood sugar DX:E11.9 In Vitro once a day for 30 days 04/17/2019 Active Losartan Potassium 100 MG TAKE 1 TABLET BY MOUTH EVERY DAY Active BD Pen Needle Micro U/F 32G X 6 MM DIRECTED UNDER SKIN DAILY 90 DAYS for 90 Active Carvedilol 25 MG TAKE 1 TABLET BY MOUTH TWICE A DAY WITH FOOD for 90 Active Betamethasone Dipropionate Aug 0.05 % APPLY TO AFFECTED AREA EVERY DAY for 30 Active Insulin Glargine 100 UNIT/ML as directed Subcutaneous 10 units per day 03/03/2023 Not-Taking ProAir HFA 90MCG INHALE 2 PUFFS EVERY 4 HOURS NEEDED Inhalation every 4 hrs Active guaiFENesin-Codeine 100-10 MG/5ML 10 mL as needed Orally every 6 hrs for 10 days 09/06/2022 Not-Taking metFORMIN HCl 500 MG TAKE 2 TABLETS BY MOUTH TWICE A DAY Active amLODIPine Besylate 10 MG TAKE 1 TABLET BY MOUTH EVERY DAY Active FreeStyle Lancets 0 used to test blood sugar daily invitro DX E11.9 once a day for 90 days 08/12/2016 Active hydroCHLOROthiazide 25 MG TAKE 1 TABLET BY MOUTH EVERY DAY IN THE MORNING Active IMMUNIZATIONS Vaccine Route Administration Date Status Comme [...] smoker, currently using no form of tobacco Alcohol Screen Question Answer Notes Did you have a drink containing alcohol in the p ast year? No Points 0 Interpretation Negative PROBLEMS Problem Type ICD Code Onset Dates Problem Status W/U Status Risk SNOMED Code Notes Problem Gastro-esophageal reflux disease without esophagitis (K21.9) Active confirmed 129060008 Problem Arthritis (M19.90) Active confirmed 372 3001 Problem Elevated LFTs (R79.89) Active confirmed 301492344 Problem Essential hypertensi on (I10) Active confirmed 96572113 Problem Mild intermittent asthma without complication (J45.20) Active confirmed 493191475 Problem Type 2 diabetes mellitus without complication (E11.9) Active confirmed 01607677 Problem Low HDL (under 40) (E78.6) Active confirmed 125695101 Problem Esophageal dysmotili ty (K22.4) Active confirmed 810033990 Problem 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) Active confirmed 49120872 Problem Peptic ulcer (K27.9) Active confirmed 1 8912248 Problem Hypertriglyceridemia (E78.1) Active confirmed 580723042 Problem Pure hypercholesterolemia (E78.00) Active confirmed 438881782 Problem Proteinuria, unspecified type (R80.9) Active confirmed 35352836 Problem 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 confirmed 08625827 Problem 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) Active confirmed 69955282 VITAL SIGNS Blood pressure diastolic 60 mm Hg 10/26/2024 panda ght is down 6 pounds since 07-23-24 Height 69.25 in 10/26/2024 weight is down 6 pounds since 07-23-24 Blood pressure systolic 142 mm Hg 10/26/2024 weig ht is down 6 pounds since 07-23-24 Weight 194 lbs 10/26/2024 weight is down 6 pounds since 07-23-24 BMI 28.44 kg/m2 10/26/2024 weight is down 6 pounds since 07-23-24 Encounters Encounter Location Date Provider Diagnosis Juan Manuel Castorena MD [address] [place] [id number] 10/26/2024 Juan Manuel Castorena Microscopic hematuri a R31.29 ; Elevated serum creatinine R79.89 ; Pruritic rash L28.2 and Cardiac murmur R01.1 Juan Manuel Castorena MD [address] [place] [id number] 04/12/2024 Juan Manuel Castorena Type 2 diabetes laurel itus without complication E11.9 and Pure hypercholesterolemia E78.00 Juan Manuel Castorena MD [address] [place] [address] Drive [address] [place] [id number] 10/19/2024 Juan Manuel Castorena Essential hypertensi on I10 ; Type 2 diabetes mellitus without complication E11.9 ; Pure hypercholesterolemia E78.00 and Elevated LFTs R79.89 Juan Manuel Castorena MD [address] [place] [address] Drive [address] [place] [id number] 06/25/2024 Juan Manuel Castorena Encounter for immuni zation Z23 Juan Manuel Castorena MD [address] [place] [address] Drive [address] [place] [id number] 01/19/2024 Juan Manuel Castorena Type 2 diabetes laurel itus without complication E11.9 ; Intrinsic eczema L20.84 and Essential hypertension I10 Juan Manuel Castorena MD [address] [place] [id number] 04/24/2024 Juan Manuel Castorena Type 2 diabetes laurel itus without complication E11.9 ; Pure hypercholesterolemia E78.00 ; Essential hypertension I10 ; Mild intermittent asthma without complication J45.20 and Gastro-esophageal reflux disease without esophagitis K21.9 Juan Manuel Castorena MD [address] [place] [address] [id number] 02/10/2024 Juan Manuel Castorena MD [address] [place] [id number] 07/23/2024 Juan Manuel Castorena Type 2 diabetes laurel itus without complication E11.9 and Essential hypertension I10 Juan Manuel Castorena MD [address] [place] [address] [id number] 02/03/2024 Juan Manuel Castorena Other acute sinusiti s, recurrence not specified J01.80 ASSESSMENTS Encounter Date Diagnosis Assessment Notes Treatment Notes Treatment Clinical Notes 10/26/2024 Elevated serum creat inine (ICD-10 - R79.89) referral to nephrology 10/26/2024 Microscopic hematuri a (ICD-10 - R31.29) 04/12/2024 Type 2 diabetes laurel itus without complication (ICD-10 - E11.9) 04/12/2024 Pure hypercholestero lemia (ICD-10 - E78.00) 10/19/2024 Essential hypertensi on (ICD-10 - I10) 10/19/2024 Type 2 diabetes laurel itus without complication (ICD-10 - E11.9) 06/25/2024 Encounter for immunization (ICD-10 - Z23) [...] that helps. if not will try antibiotic 10/26/2024 Pruritic rash (ICD-1 0 - L28.2) referral to [facility] [place] 10/19/2024 Pure hypercholestero lemia (ICD-10 - E78.00) 01/19/2024 Essential hypertensi on (ICD-10 - I10) doing well, will continue current regiment 04/24/2024 Essential hypertensi on (ICD-10 - I10) doing well, will contnue current regiment 10/26/2024 Cardiac murmur (ICD- 10 - R01.1) 10/19/2024 Elevated LFTs (ICD-1 0 - R79.89) 04/24/2024 Mild intermittent as thma without complication (ICD-10 - J45.20) stable, no issues, will continue current regiment 04/24/2024 Gastro-esophageal re flux disease without esophagitis (ICD-10 - K21.9) doing well, will continue current regiment PLAN OF TREATMENT Pending Test Test Name Order Date XR GI SERIES 06/02/2021 ECHO 10/26/2024 US scrotum 10/21/2022 UA ClnCatch+Micro w/rflx Cult 10/26/2024 Next Appt Details Provider Name:Juan Manuel narayanan, 01/22/2025 08:30:00 AM, [address] [place] [address], [address], [place], [place], [phone], Provider Name:Juan Manuel hernandezr, 04/18/2025 07:30:00 AM, [address] [place] [address], [address], [place], [place], [phone], Provider Name:Juan Manuel narayanan, 04/26/2025 09:00:00 AM, [address] [place] [address], [address], [place], [place], [phone], Provider Name:Juan Manuel Huffman ier, 10/25/2025 07:30:00 AM, [address], [address], [place], [place], [phone], Provider Name:Juan Manuel Huffman ier, 11/01/2025 08:30:00 AM, [address], [address], [place], [place], [phone], Insurance Providers Payer Name Payer Address Payer Phone Subscriber Number Group Number Insured Name Patient Relationship to Insured Coverage Start Date Coverage End Date MEDICARE NH[employer] [address] [place] [address] [id number] SUKHWINDER CIERA Self - patient is the insured [employer] AND [facility] [address] [place], [place] [id number] CIERA MUNIZ Self - patient is the insured MEDICAL (GENERAL) HISTORY Medical History History ICD Code tribenzor is amlodipine,benicar and hctz refuses colonoscopy 2011, , 2013, 2014 (DON'T ASK AGAIN); 09/20/19 refused cologuard
[2024-10-26 12:22] LABS: Appearance Urine Clear; Color Urine Yellow; Glucose Urine UA >=1000 mg/dL (Negative); Leukocyte Esterase Urine Negative (Negative); Nitrite Urine Negative (Negative); PH 5.5 (5.0-9.0); Specific Gravity - Urine 1.015 (1.005-1.025); UMIC TRIGGER UACC YES; Urine Blood Negative (Negative); Urine Ketones Negative (Negative); Urine Protein 300 (3+) mg/dL (Neg-Trace)
[2024-10-26 12:28] LABS: Bacteria Urine None Seen (None Seen); Hyaline Casts Urine 0-2 /LPF (0-2); RBC Urine 0-2 /HPF (0-2); Squamous Epithelial Cell Urine 0-2 /HPF (0-2); WBC Urine 0-5 /HPF (0-5)
== END 2024-10-26 12:15 | disposition home or self-care (01) ==
LOC: HO.LNP 12:14
PROVIDERS: Visit Provider Internal Medicine
DX: R31.29 Other microscopic hematuria (principal)
CPT/HCPCS: 81001

== ENCOUNTER 2025-01-17 14:38 | Outpatient (REF) | payer MEDICARE, SELFPAY ==
--- NOTE | ~2025-01-17 | US_ITS ---
EXAMINATION: US RETROPERITONEAL LIMITED (RENAL ONLY) CLINICAL INFORMATION: Proteinuria, hematuria, chronic kidney disease.. COMPARISON: None available. TECHNIQUE: Real-time imaging of the kidneys. FINDINGS: RIGHT KIDNEY: 11.8 x 5.7 x 5.9 cm (SAG x AP x TRV). The kidney is normal in size, contour, and echogenicity. Renal cortical thickness is normal. No calculi or suspicious focal parenchymal lesions. No hydronephrosis. There is a mid pole simple cyst measuring 0.8 cm. LEFT KIDNEY: 12.1 x 5.5 x 5.3 cm (SAG x AP x TRV). The kidney is normal in size, contour, and echogenicity. Renal cortical thickness is normal. No calculi or suspicious focal parenchymal lesions. No hydronephrosis. There is a 1.2 cm mid pole simple cyst laterally. Incidentally is diffusely increased hepatic echogenicity. There are 2 large right liver masses, the larger measuring 5.3 x 7.2 x 5.4 cm, and the smaller measuring 2.4 x 1.7 x 2.2 cm. These are of uncertain etiology. No prior imaging for comparison purposes. US/US renal BI IMPRESSION: 1. Aside from small cortical cysts bilaterally, normal bilateral kidneys. 2. Incidental note made of 2 right hepatic lobe liver masses, the larger measuring 5.3 x 7.2 x 5.4 cm. These are of uncertain etiology, and no prior imaging is available to compare. Recommend correlation with any known prior imaging at outside institutions. Otherwise, recommend further evaluation with contrast-enhanced CT of the abdomen and pelvis. Electronically signed by: Jarrett Stapleton MD 01/17/2025 03:50 PM EDT
--- OUTSIDE RECORDS SUMMARY | 2025-01-17 16:08 | XMS_ITS ---
Author Organization Juan Manuel Castorena MD Address [address] [place] [phone] Care Team Providers Care Loom Technician Name Role Phone Juan Manuel Castorena Primary Care Provider [phone] Medications Medication SIG (Take, Route, Frequency, Duration) Notes Start Date End Date Status Betamethasone Dipropionate Aug 0.05 % APPLY TO AFFECTED AREA EVERY DAY for 50 Active Encounters Encounter Location Date Provider Diagnosis Juan Manuel Castorena MD [facility] [address] [place] [id number] 11/16/2024 Juan Manuel Castorena Plan Of Treatment Medication Medication Name Sig Start Date Stop Date Notes Betamethasone Dipropionate A ug 0.05 % APPLY TO AFFECTED AREA EVERY DAY for 50 Next Appt Details Provider Name:Juan Manuel narayanan, 01/22/2025 08:30:00 AM, [address] [place] [address], [address], [phone], Provider Name:Juan Manuel narayanan, 04/18/2025 07:30:00 AM, [address] [place] [address], [address], [phone], Provider Name:Juan Manuel Huffman ier, 05/03/2025 10:00:00 AM, [address], [address], [place], [phone], Provider Name:Juan Manuel Huffman ier, 10/25/2025 07:30:00 AM, [address], [address], [place], [phone], Provider Name:Juan Manuel Huffman ier, 11/01/2025 08:30:00 AM, [address], [address], [place], [phone], Progress Notes * CIERA MUNIZ CDOB:1940 (84 yo M)Acc No.[id number]:11/16/2024 Patient:?SUKHWINDER, CIERA C :1940???Age:84 Y???Sex:Male Address:[address] [place] [address], [address] * Refills? Refill Betamethasone Dipropionate Aug Cream, 0.05 %, 50 Gram, APPLY TO AFFECTED AREA EVERY DAY, 50, Refills=3 * true * Date:? Generated for Cory kwan/[place]/Armandosmitting on:?01/17/2025 04:08 PM EDT
--- OUTSIDE RECORDS SUMMARY | 2025-01-17 16:09 | XMS_ITS | Clinical Summary ---
Author Organization [facility] Address [address] [place] [phone] Phone Care Team Providers Care Rn Internship Name Role Phone Juan Manuel Castorena MD Primary Care Provider [phone] Allergies No known active allergies Medications amLODIPine (NORVASC) 10 MG tablet Take 10 mg by mouth in the morning. Active atorvastatin (LIPITOR) 20 MG tablet Take 20 mg by mouth in the morning. Active carvedilol (COREG) 25 MG tablet TAKE 1 TABLET BY MOUTH TWICE A DAY WITH FOOD for 90 Active celecoxib (CeleBREX) 200 MG capsule 10/19/19 20 Active Dapagliflozin Propanediol (Farxiga) 5 MG tablet Take 1 tablet by mouth 1 (one) time each day in the morning 12/03/19 20 Active hydroCHLOROthia zide 25 MG tablet Take 1 tablet by mouth 1 (one) time each day in the morning 11/18/19 20 Active losartan (COZAAR) 100 MG tablet Take 100 mg by mouth in the morning. Active metFORMIN (GLUCOPHAGE) 500 MG tablet Take 500 mg by mouth in the morning and 500 mg in the evening. Active omeprazole (PriLOSEC) [address] capsule TAKE 1 CAPSULE BY MOUTH IN THE MORNING 30 MINS BEFORE BREAKFAST Active Basaglar KwikPen 100 UNIT/ML injection INJECT 10 UNITS SUBCUTANEOUSLY DAILY DIRECTED 90 10/29/19 25 Active glimepiride (AMARYL) 1 MG tablet 1 (one) time each day at the same time 025 Discontin ued(Med List Maintenan ce) guaiFENesin-cod eine (ROBITUSSIN-AC) 100-10 MG/5ML syrup every 6 hours 11/21 025 Discontin ued(Med List Flakita galindo) Active Problems Problem Noted Date Diagnosed Date Chronic kidney disease, stage 4 (severe) 025 Diabetes mellitus, not otherwise specified 12/20 Hypertension 12/20/2024 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 Proteinuria, not otherwise specified 12/19/2024 Hematuria, not otherwise specified 12/19/2024 Resolved Problems Problem Noted Date Diagnosed Date Resolved Date Stage 3 chronic kidney disea se, not otherwise specified 12/19/2024 12/20/2024 Encounters Date Type Department Care Team Description 12/20/2024 11:00 AM EST [facility] Visit [facility] [address] [phone] Jean-Paul Sosa MD Stage 3 chronic kidney disease, not otherwise specified (HCC) (Primary Dx); Proteinuria, not otherwise specified; Hematuria, not otherwise specified; Chronic kidney disease, stage 4 (severe) (HCC); Diabetes mellitus, not otherwise specified (HCC); Hypertension; 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 Orders Only [facility] [address] [phone] Jean-Paul Sosa MD from Last 3 Months Social History Tobacco Use Types Packs/Day Years Used Date Smoking Tobacco: Never Assessed Sex and Gender Information Value Date Recorded Sex Assigned at Not on file Legal Sex Male 3:46 PM EST Gender Identity Not on file Sexual Orientation Not on file Last Filed Vital Signs Vital Sign Reading Time Taken Comments Blood Pressure 142/90 12/20/2024 10:39 AM EST Pulse 72 12/20/2024 10:39 AM EST Temperature - - Respiratory Rate - - Oxygen Saturation 98% 12/20/2024 10: 39 AM EST Inhaled Oxygen Concentration - - Weight 90.2 kg (198 lb 12.8 oz) 025 10:39 AM EST Height - - Body Mass Index - - Plan of Treatment Upcoming Encounters Date Type Department Care Team (Late st Contact Info) Description 02/21/2025 10:20 AM EDT Office Visit [facility] [address] [phone] Jean-Paul Sosa MD [address] [place] [phone] Health Maintenance Due Date Last Done Comments Pneumococcal Vaccine: 65+ Ye ars (1 of 2 - PCV) 1946 Diabetes: Hemoglobin A1C 10/30/2024 Diabetes: Ophthalmology Exam 10/30/2024 Diabetes: Pedal Pulse Checked 10/30/2024 Diabetes: Sensory Foot Exam 10/30/2024 Diabetes: Visual Foot Exam 10/30/2024 Influenza Vaccine (Season Ended) 2025 Hepatitis B Vaccine Aged Out No longe r eligible based on patient's age to complete this topic Procedures Procedure Name Priority Date/Time Associated Diagnosis Comments MARTI AND PE, SERUM Routine 12/20/2024 11: 42 AM EST INTERPRETATION Routine 12/20/2024 11:42 AM EST HEPATITIS B CORE AB TOTAL Routine 12/20/2024 11:42 AM EST HEPATITIS B SURFACE ANTIGEN Routine 12/20/2024 11:42 AM EST MAGNESIUM Routine 12/20/2024 11:42 AM EST ERVIN PANEL Routine 12/20/2024 11:42 AM EST PHOSPHATE ( PHOSPHORUS) Routine 12/20/2024 11:42 AM EST ANTI-GLOMERULAR BASEMENT MEMBRANE ANTIBODIES (RDL) Routine 12/20/2024 11:42 AM EST PHOSPHOLIPASE A2 RECEPTOR ANTIBODIES, SERUM Routine 12/20/2024 11:42 AM EST MARTI, URINE Routine 12/20/2024 11:42 AM EST HEPATITIS B SURFACE AB (QUAL) Routine 12/20/2024 11:42 AM EST HEPATITIS C AB W/REFL TO HCV RNA, QN, PCR Routine 12/20/2024 11:42 AM EST HIV 1/2 ANTIBODY W/RNA REFLEX Routine 12/20/2024 11:42 AM EST COMPLEMENT C3 & C4 Routine 12/20/2024 11 :42 AM EST ANCA PROFILE (RDL) Routine 12/20/2024 11 :42 AM EST URINE ALBUMIN / CREATININE RATIO Routine 12/20/2024 11:42 AM EST PROTEIN / CREATININE RATIO, URINE Routine 12/20/2024 11:42 AM EST ANCA PANEL Routine 12/20/2024 11:42 AM EST URINALYSIS WITH MICROSCOPIC Routine 12/20/2024 11:42 AM EST COMPREHENSIVE METABOLIC PANEL Routine 12/20/2024 11:42 AM EST CBC AND DIFFERENTIAL Routine 12/20/2024 11:42 AM EST MICROSCOPIC EXAMINATION - DO NOT USE Routine 12/20/2024 11:42 AM EST from Last 3 Months Results * ANCA Profile (RDL) (12/20/2024 11:42 AM EST) ANCA by IFA (RDL) Negative Negative [employer] MPO Abs <20 <20 Units [facility] Antiproteinase 3 (IL-3) Abs <20 <20 Units [employer] [phone] 12/20/2024 11:4 2 AM EST 12/20/2024 us Jean-Paul Sosa MD LAB BLOOD ORDERABLES Final Re sult [facility] [address] [place] [address] * Anti-Glomerular Basement Membrane Ab (RDL) (12/20/2024 11:42 AM EST) Anti-Glomerular Basement Membrane Abs (RDL) <20 <20 Units [employer] 12/20/2024 11:4 2 AM EST 12/20/2024 Jean-Paul Sosa MD LAB BLOOD ORDERABLES Final Re sult [facility] [employer] [address] [place] [address] * HIV 1/2 Antibody w/RNA Reflex (12/20/2024 11:42 AM EST) Pathologist [facility] HIV-1 RNA Non Reactive Non Reactive [facility] HIV 2 DNA/RNA Qualitative Real Time PCR Non Reactive Non Reactive [facility] 12/20/2024 11:4 2 AM EST 12/20/2024 Jean-Paul Sosa MD LAB BLOOD ORDERABLES Final Re sult [facility] [place] [address] * (ABNORMAL) MARTI and PE, Serum (12/20/2024 11:42 AM EST) IgG 611 603 - 1,613 mg/dL [facility] IgA 347 61 - 437 mg/dL [facility] IgM 54 15 - 143 mg/dL [facility] Serum Albumin 3.2 2.9 - 4.4 g/dL [facility] Mtizl-1-Zhixuqgt 0.2 0.0 - 0.4 g/dL [facility] [phone] Ekehe-0-Nthbaeyh 1.4(H) 0.4 - 1.0 g/dL [facility] [phone] Beta Globulin 1.2 0.7 - 1.3 g/dL [facility] Gamma Globulin in Serum 0.6 0.4 - 1.8 g/dL [facility] [phone] M-Abner Serum Not Observed Not Observed g/dL [facility] [phone] Globulin, Total 3.4 2.2 - 3.9 g/dL [facility] Albumin/Globulin Ratio Calculated 1.0 0.7 - 1.7 [facility] [phone] Immunofixation Result, Serum Comment(A) [facility]: A faint band was noted in lambda; suggestive of free monoclonal protein. Recommend retesting in 4-6 months. Please note Comment [facility] Comment: Protein electrophoresis scan will follow via computer, mail, or conference services director delivery. PDF . [facility] 12/20/2024 11:4 2 AM EST 12/20/2024 us Jean-Paul Sosa MD LAB BLOOD ORDERABLES Final Re sult [facility] [address] [place] [address] * (ABNORMAL) Complement C3 & C4 (12/20/2024 11:42 AM EST) C3 Complement 197(H) 82 - 167 mg/dL [facility] C4 Complement 46(H) 12 - 38 mg/dL [facility] 12/20/2024 11:4 2 AM EST 12/20/2024 Jean-Paul Sosa MD LAB BLOOD ORDERABLES Final Re sult Performing Organization Address [facility] de Phone Number [facility] [address] [place] [address] * MARTI, Urine (12/20/2024 11:42 AM EST) MARTI Interpretation:U Comment [facility] Comment: The immunofixation pattern appears unremarkable. Evidence of monoclonal protein is not apparent. 12/20/2024 11:4 2 AM EST 12/20/2024 Jean-Paul Sosa MD LAB URINE ORDERABLES Final Re sult Performing Organization Address [facility] de Phone Number [facility] [address] [place] [address] * Phospholipase A2 Receptor Antibodies, Serum (12/20/2024 11:42 AM EST) Pathologist [facility] Anti-PLA2R <1.8 0.0 - 19.9 RU/mL [facility] Comment: ?Negative ?<14.0 ?Borderline ??14.0 - 19.9 ?Positive ?>19.9 12/20/2024 11:4 2 AM EST 12/20/2024 Jean-Paul Sosa MD LAB BLOOD ORDERABLES Final Re sult [facility] [place] [address] * INTERPRETATION (12/20/2024 11:42 AM EST) Interpretation Comment Zack Massey [phone] Comment: Not infected with HCV unless early or acute infection is suspected (which may be delayed in an immunocompromised individual), or other evidence exists to indicate HCV infection. 12/20/2024 11:4 2 AM EST 12/20/2024 Jean-Paul Sosa MD LAB [id number] SOLICITED RESULTS Final Result [facility] [place] [address], [address] [place] [address] * HEPATITIS C AB W/REFL TO HCV RNA, QN, PCR (12/20/2024 11:42 AM EST) HCV Ab Non Reactive Non Reactive [facility] 12/20/2024 11:4 2 AM EST 12/20/2024 Jean-Paul Sosa MD LAB BLOOD ORDERABLES Final Re sult [facility] Zack [place] [address], [address] [place] [address] * Hepatitis B Surface Ab (Qual) (12/20/2024 11:42 AM EST) Hepatitis B Surface Ab Qual Non Reactive [facility] [phone] Comment: ? Non Reactive: Not immune to HBV infection. ? Equivocal: Unable to determine if anti-HBs ?is present at levels consistent ?with immunity. ?Reactive: Anti-HBs concentration detected ?at greater than 10 mIU/mL. ?Individual is considered to be ?immune to infection with HBV. 12/20/2024 11:4 2 AM EST 12/20/2024 Jean-Paul Sosa MD LAB BLOOD ORDERABLES Final Re sult Performing Organization Address [facility] Co de Phone Number [facility] [place] [address], [address] [place] [address] * Microscopic Examination (12/20/2024 11:42 AM EST) WBC, Urine None seen 0 - 5 /hpf [facility] RBC, Urine None seen 0 - 2 /hpf [facility] Squamous Epithelial, Urine None seen 0 - 10 /hpf [facility] Casts None seen None seen /lpf [facility] Bacteria, Urine None seen None seen/Few [facility] 12/20/2024 11:4 2 AM EST 12/20/2024 Jean-Paul Sosa MD LAB MICROBIOLOGY - GENERAL OR DERABLES Final Result Performing Organization Address City/[facility]/ZIP Co de Phone Number [facility] [address] [place] [address] * ANCA Panel (MPO/PR3) (12/20/2024 11:42 AM EST) MPO Abs <0.2 0.0 - 0.9 units [facility] Antiproteinase 3 (IL-3) Abs <0.2 0.0 - 0.9 units [facility] C-ANCA <1:20 Neg:<1:20 titer [facility] Perinuclear (P-ANCA) <1:20 Neg:<1:20 titer [facility] Comment: The presence of positive fluorescence exhibiting P-ANCA or C-ANCA patterns alone is not specific for the diagnosis of Jr's Granulomatosis (WG) or microscopic polyangiitis. Decisions about treatment should not be based solely on ANCA IFA results. ??The International ANCA Group Consensus recommends follow up testing of positive sera with both IL-3 and MPO-ANCA enzyme immunoassays. As many as 5% serum samples are positive only by EIA. Ref. AM J Clin Pathol 1999;111:507-513. Atypical p-ANCA <1:20 Neg:<1:20 titer [facility] Comment: The atypical pANCA pattern has been observed in a significant percentage of patients with ulcerative colitis, primary sclerosing cholangitis and autoimmune hepatitis. 12/20/2024 11:4 2 AM EST 12/20/2024 Jean-Paul Sosa MD LAB BLOOD ORDERABLES Final Re sult [facility] [place] [address] * (ABNORMAL) Protein, Total, Random Urine w/Creatinine (Protein/Creat Ratio) (12/20/2024 11:42 AM EST) Creatinine, Ur 35.5 Not Estab. mg/dL [facility] Protein, Ur 292.6 Not Estab. mg/dL [facility] Comment: Results confirmed on dilution. Urine Protein/Creati nine Ratio 8,242(H) 0 - 200 mg/g creat [facility] 12/20/2024 11:4 2 AM EST 12/20/2024 Jean-Paul Sosa MD LAB URINE ORDERABLES Final Re sult Performing Organization Address [facility] de Phone Number [facility] [address] [place] [address] * (ABNORMAL) Urine Albumin / Creatinine Ratio (12/20/2024 11:42 AM EST) Pathologist [facility] Albumin, Urine 1,740.3 Not Estab. ug/mL [facility] Comment: Results confirmed on dilution. Albumin/Creatin ine Ratio 4,902(H) 0 - 29 mg/g creat [facility] Comment: ? Normal: ?0 - ??29 ? Moderately increased: 30 - 300 ? Severely increased: ? >300 12/20/2024 11:4 2 AM EST 12/20/2024 Jean-Paul oSsa MD LAB URINE ORDERABLES Final Re sult Performing Organization Address [facility] de Phone Number [facility] [place] [address] [place] [address] * Hepatitis B Core Antibody, Total (12/20/2024 11:42 AM EST) HBc Total Ab, S Negative Negative [facility] [place] 12/20/2024 11:4 2 AM EST 12/20/2024 Jean-Paul Sosa MD LAB BLOOD ORDERABLES Final Re sult [facility] [place] [address], [address] [place] [phone] * Hepatitis B Surface Antigen (12/20/2024 11:42 AM EST) Pathologist [facility] Hep B Surface Ag Negative Negative [facility] [place] 12/20/2024 11:4 2 AM EST 12/20/2024 Jean-Paul Sosa MD LAB BLOOD ORDERABLES Final Re sult Performing Organization Address [facility] Co de Phone Number [facility] [place] [address], [address] [place] [phone] * (ABNORMAL) Urinalysis with microscopic (12/20/2024 11:42 AM EST) [facility] Specific Max, Urine 1.016 1.005 - 1.030 [facility] pH Urine 6.0 5.0 - 7.5 [facility] [phone] Color, Urine Yellow Yellow [facility] [phone] Appearance Urine Clear Clear [facility] WBC Esterase Urine Negative Negative [facility] Protein, Ur 3+(A) Negative/Tra ce [facility] Glucose, Ur 3+(A) Negative [facility] Ketones, Urine Negative Negative [facility] [place] [phone] Blood Urine Negative Negative [facility] Bilirubin Urine Negative Negative [facility] [place] Urobilinogen Urine 0.2 0.2 - 1.0 mg/dL [facility] Nitrite, Urine Negative Negative [facility] [place] Microscopic Examination See below: [facility] Comment:Microscopic was toby cated and was performed. 12/20/2024 11:4 2 AM EST 12/20/2024 us Jean-Paul Sosa MD LAB URINE ORDERABLES Final Re sult [facility] [address] [place] [address] * (ABNORMAL) CBC and Differential (12/20/2024 11:42 AM EST) WBC 6.8 3.4 - 10.8 x10E3/uL [facility] RBC 4.77 4.14 - 5.80 x10E6/uL [facility] Hemoglobin 14.9 13.0 - 17.7 g/dL [facility] Hematocrit 43.7 37.5 - 51.0 % [facility] MCV 92 79 - 97 fL [facility] MCH 31.2 26.6 - 33.0 pg [facility] MCHC 34.1 31.5 - 35.7 g/dL [facility] RDW 12.9 11.6 - 15.4 % [facility] Platelets 295 150 - 450 x10E3/uL [facility] Neutrophils Relative 59 Not Estab. % [facility] Lymphocytes Relative 24 Not Estab. % [facility] Monocytes 8 Not Estab. % [facility] Eosinophils Relative 8 Not Estab. % [facility] Basophils Relative 1 Not Estab. % [facility] Neutrophils Absolute 4.1 1.4 - 7.0 x10E3/uL [facility] Lymphocytes Absolute 1.6 0.7 - 3.1 x10E3/uL [facility] Monocytes Absolute 0.5 0.1 - 0.9 x10E3/uL [facility] Eosinophils Absolute 0.5(H) 0.0 - 0.4 x10E3/uL [facility] Basophils Absolute 0.1 0.0 - 0.2 x10E3/uL [facility] Immature Granulocytes 0 Not Estab. % [facility] Immature Grans (Absolute) 0.0 0.0 - 0.1 x10E3/uL [facility] 12/20/2024 11:4 2 AM EST 12/20/2024 Jean-Paul Sosa MD LAB BLOOD ORDERABLES Final Re sult Performing Organization Address City/[facility]/ZIP Co de Phone Number [facility] [address] [place] [address] * ERVIN Panel (12/20/2024 11:42 AM EST) [facility] ERVIN Negative Negative [facility] 12/20/2024 11:4 2 AM EST 12/20/2024 Jean-Paul Sosa MD LAB BLOOD ORDERABLES Final Re sult Performing Organization Address City/[facility]/ZIP Co de Phone Number [facility] [address] [place] [address] * Phosphorus (12/20/2024 11:42 AM EST) [facility] Phosphorus 3.1 2.8 - 4.1 mg/dL [facility] 12/20/2024 11:4 2 AM EST 12/20/2024 us Jean-Paul Sosa MD LAB BLOOD ORDERABLES Final Re sult Performing Organization Address City/[facility]/ZIP Co de Phone Number [facility] [address] [place] [address] * Magnesium (12/20/2024 11:42 AM EST) Pathologist [facility] Magnesium 1.7 1.6 - 2.3 mg/dL [facility] 12/20/2024 11:4 2 AM EST 12/20/2024 us Jean-Paul Sosa MD LAB BLOOD ORDERABLES Final Re sult Performing Organization Address [facility] Co de Phone Number [facility] [place] [address] [place] [address] * (ABNORMAL) Comprehensive Metabolic Panel (12/20/2024 11:42 AM EST) Pathologist [facility] Glucose 219(H) 70 - 99 mg/dL [facility] BUN 22 8 - 27 mg/dL [facility] Creatinine 1.84(H) 0.76 - 1.27 mg/dL [facility] eGFR CKD-EPI CR 2020 36(L) >59 mL/min/1.7 3 [facility] BUN/Creatinine Ratio 12 10 - 24 [facility] Sodium 140 134 - 144 mmol/L [facility] Potassium 4.1 3.5 - 5.2 mmol/L [facility] Chloride 99 96 - 106 mmol/L [facility] Bicarbonate (CO2) 22 20 - 29 mmol/L [facility] Calcium 9.3 8.6 - 10.2 mg/dL [facility] Total Protein 6.6 6.0 - 8.5 g/dL [facility] Albumin 4.1 3.7 - 4.7 g/dL [facility] Globulin 2.5 1.5 - 4.5 g/dL [facility] Total Bilirubin 0.3 0.0 - 1.2 mg/dL [facility] Alkaline Phosphatase 134(H) 44 - 121 IU/L [facility] AST (SGOT) 23 0 - 40 IU/L [facility] ALT (SGPT) 13 0 - 44 IU/L [facility] 12/20/2024 11:4 2 AM EST 12/20/2024 us Jean-Paul Sosa MD LAB BLOOD ORDERABLES Final Re sult [facility] [address] [place] [address] from Last 3 Months Insurance MEDICARE [facility] Care Teams Rn Internship Relationship Specialty Start Date End Date Juan Manuel Castorena MD [address] [place] [address] [id number] [place], [place] PCP - General Internal Medicine 10/29/24
--- OUTSIDE RECORDS SUMMARY | 2025-01-17 16:09 | XMS_ITS ---
Author Organization Juan Manuel Castorena MD Address [address] [place] [phone] Care Team Providers [employer] Former Supervisor Name Role Phone Juan Manuel Castorena Primary Care Provider REASON FOR VISIT RF Medications Medication SIG (Take, Route, Frequency, Duration) Notes Start Date End Date Status Atorvastatin Calcium 20 MG TAKE 1 TABLET BY MOUTH EVERY DAY for 90 Active Encounters Encounter Location Date Provider Diagnosis Juan Manuel Castorena MD [address] [place] [address] [place] [phone] 11/06/2024 Juan Manuel Castorena Plan Of Treatment Medication Medication Name Sig Start Date Stop Date Notes Atorvastatin Calcium 20 MG TAKE 1 TABLET BY MOUTH EVERY DAY for 90 Next Appt Details Provider Name:Juan Manuel narayanan, 01/22/2025 08:30:00 AM, [address] [place] [address], [phone], Provider Name:Juan Manuel narayanan, 04/18/2025 07:30:00 AM, [address] [place] [address], [phone], Provider Name:Juan Manuel narayanan, 05/03/2025 10:00:00 AM, [address], [address], [place], [phone], Provider Name:Juan Manuel Huffman lady, 10/25/2025 07:30:00 AM, [address], [address], [place], [phone], Provider Name:Juan Manuel Huffman maryr, 11/01/2025 08:30:00 AM, [address], [address], [place], [phone], Progress Notes * CIERA MUNIZ CDOB:1940 (84 yo M)Acc No.[id number]:11/06/2024 Patient:?CIERA MUNIZ C :1940???Age:84 Y???Sex:Male Address:[address] [place] [address], [address] * Refills? Refill Atorvastatin Calcium Tablet, 20 MG, 90 Tablet, TAKE 1 TABLET BY MOUTH EVERY DAY, 90, Refills=3 * true * Date:? Generated for Cory kwan/[place]/Armandosmitting on:?01/17/2025 04:08 PM EDT
--- OUTSIDE RECORDS SUMMARY | 2025-01-17 16:09 | XMS_ITS ---
Author Organization Juan Manuel Castorena MD Address [address] [place] [phone] Care Team Providers Care French Binding Folder Name Role Phone Juan Manuel Castorena Primary Care Provider Allergies No Known Allergies Results Component Value Reference Range Notes UA ClnCatch+Micro w/rflx Cul t Reviewed date:10/26/2024 01:25:07 PM Interpretation: Performing Lab:[facility], [address] [place] [id number] Notes/Report: Urine, Clean Catch Color Urine Yellow Appearance Urine Clear PH 5.5 5.0-9.0 Glucose Urine UA >=1000 Negative mg/dL Urine Blood Negative Negative Specific [place] - Urine 1.015 1.005-1.025 Urine Protein 300 (3+) Neg-Trace mg/dL Urine Ketones Negative Negative mg/dL Nitrite Urine Negative Negative Leukocyte Esterase Urine Negative Negative RBC Urine 0-2 0-2 /HPF WBC Urine 0-5 0-5 /HPF Squamous Epithelial Cell Urine 0-2 0-2 /HPF Bacteria Urine None Seen None Seen Hyaline Casts Urine 0-2 0-2 /LPF Reason For Referral Reason Elevated creatinine Diagnosis 1 Creatinine elevation (R79.89) Referral Organization Juan Manuel Castorena MD Referring Provider First Name Juan Manuel Referring Provider Last Name Raffaele Referring Provider Speciality Internal M edicine Referred Provider Maria Rodrigues Referred Provider Specialty Nephrology General Notes Nancy Trivedi 0 10/26/2024 11:58:11 AM > info visit, Nancy Trivedi 10/30/2024 02:06:50 PM > appt is with Dr. Sosa [address] [facility], Nancy Trivedi 11/02/2024 02:24:25 PM > referral info mailed to patient Referral Priority Routine Referral Appointment Date 12/20/2024 Reason Pruritic rash Diagnosis 1 Pruritic rash (L28.2 ) Referral Organization Juan Manuel Castorena MD Referring Provider First Name Juan Manuel Referring Provider Last Name Raffaele Referring Provider Speciality Internal edicine Referred Provider [place] Bradley Mckeon Referred Provider Specialty Dermatology General Notes Nancy Trivedi 0 10/26/2024 08:39:59 AM >patient wants [place] office info faxed, Nancy Trivedi 11/19/2024 07:33:49 AM > info mailed to patient Referral Priority Routine Referral Appointment Date 05/08/2025 REASON FOR VISIT review labs Medications Medication SIG (Take, Route, Frequency, Duration) Notes Start Date End Date Status Paxlovid (300/100) 20 x 150 MG & 10 x 100MG as directed Orally 2 tabs nirm and 1 tab carola for 5 days 07/20/2022 Not-Taking Glimepiride 1MG TAKE 1 TABLET WITH BREAKFAST OR FIRST MAIN MEAL OF THE DAY Orally Once a day for 90 Not-Taking Carvedilol 25 MG TAKE 1 TABLET BY MOUTH TWICE A DAY WITH FOOD for 90 Active Insulin Glargine 100 UNIT/ML as directed Subcutaneous 10 units per day 03/03/2023 Not-Taking guaiFENesin-Codeine 100-10 MG/5ML 10 mL as needed Orally every 6 hrs for 10 days 09/06/2022 Not-Taking metFORMIN HCl 500 MG TAKE 2 TABLETS BY MOUTH TWICE A DAY Active amLODIPine Besylate 10 MG TAKE 1 TABLET BY MOUTH EVERY DAY Active hydroCHLOROthiazide 25 MG TAKE 1 TABLET BY MOUTH EVERY DAY IN THE MORNING Active Basaglar KwikPen 100 UNIT/mL, 3 mL pen as directed Subcutaneous 15 units daily 03/03/2023 Active Losartan Potassium 100 MG TAKE 1 TABLET BY MOUTH EVERY DAY Active Atorvastatin Calcium 20 MG TAKE 1 TABLET BY MOUTH EVERY DAY Active Omeprazole 20 MG TAKE 1 CAPSULE BY MOUTH IN THE MORNING 30 MINS BEFORE BREAKFAST Active Farxiga 5 MG TAKE 1 TABLET BY MOUTH EVERY DAY IN THE MORNING Active Betamethasone Dipropionate Aug 0.05 % APPLY TO AFFECTED AREA EVERY DAY for 30 Active ProAir HFA 90MCG INHALE 2 PUFFS EVERY 4 HOURS NEEDED Inhalation every 4 hrs Active FreeStyle Lancets 0 used to test blood sugar daily invitro DX E11.9 once a day for 90 days 08/12/2016 Active FreeStyle Lite Test - use to test blood sugar DX:E11.9 In Vitro once a day for 30 days 04/17/2019 Active BD Pen Needle Micro U/F 32G X 6 MM DIRECTED UNDER SKIN DAILY 90 DAYS for 90 Active Social History Tobacco Use: Social History Observation Description Date Details (start date - stop date) Former Smoker NA - NA Tobacco Use/Smoking Question Answer Notes Patient is a former smoker How long has it been since y ou last smoked? > 10 years Additional Findings: Tobacco Non-User Fo rmer smoker, currently using no form of tobacco Alcohol Screen Question Answer Notes Did you have a drink containing alcohol in the p ast year? No Points 0 Interpretation Negative Vital Signs Blood pressure systolic 142 mm Hg 10/26/19 25 Blood pressure diastolic 60 mm Hg 025 Height 69.25 in 10/26/2024 Weight 194 lbs 10/26/2024 BMI 28.44 kg/m2 10/26/2024 weight is down 6 pounds [facility] 10-7-24 Encounters Encounter Location Date Provider Diagnosis Juan Manuel Castorena MD [address] [place] [address] [place] [phone] 10/26/2024 Juan Manuel Castorena Microscopic hematuri a R31.29 ; Elevated serum creatinine R79.89 ; Pruritic rash L28.2 ; Cardiac murmur R01.1 and Type 2 diabetes mellitus without complication E11.9 Assessments Encounter Date Diagnosis (ICD Code) Assessment Notes Treatment Notes Treatment Clinical Notes Section Notes 10/26/2024 Microscopic hematuria (ICD-10 - R31.29) [pending diagnostic testing 10/26/2024 Elevated serum creatinine (ICD-10 - R79.89) referral to nephrology 10/26/2024 Pruritic rash (ICD-10 - L28.2) referral to [facility] in [place] 10/26/2024 Cardiac murmur (ICD-10 - R01.1) pending diagnostic testing 10/26/2024 Type 2 diabetes mellitus without complication (ICD-10 - E11.9) not at goal, advised on diet, will contiue to monitor and will contnue current regiment Plan Of Treatment Treatment Notes Assessment Notes Microscopic hematuria [pending diagnosti c testing Elevated serum creatinine referral to pr phrology Pruritic rash referral to [facility] [place] Cardiac murmur pending diagnostic t esting Type 2 diabetes mellitus wit hout complication not at goal, advised on diet, will ira ue to monitor and will contnue current regiment Pending Test Test Name Order Date ECHO 10/26/2024 Referrals Referral Date Details 10/26/2024 10/26/2024, Elevated creatinine , Maria Rodrigues 10/26/2024 10/26/2024, Pruritic rash, [facility] Next Appt Details Follow Up: 3 Months, Reason: Provider Name:Juan Manuel narayanan, 01/22/2025 08:30:00 AM, [address] [place] [address], [address] [place] [address], [phone], Provider Name:Juan Manuel narayanan, 04/18/2025 07:30:00 AM, [address] [place] [address], [address] [place] [address], [phone], Provider Name:Juan Manuel narayanan, 05/03/2025 10:00:00 AM, [address] [place] [address], [address] [place] [address], [phone], Provider Name:Juan Manuel narayanan, 10/25/2025 07:30:00 AM, [address] [place] [address], [address], [phone], Provider Name:Juan Manuel narayanan, 11/01/2025 08:30:00 AM, [address] [place] [address], [address], [phone], Progress Notes * CIERA MUNIZ CDOB:1940 (83 yo M)Acc No.[id number]:10/26/2024 Patient:?CIERA MUNIZ Provider:?Juan Manuel Castorena MD :1940???Age:83 Y???Sex:Male Junior e:10/26/2024 Address:[address] [place] [address] Subjective: * Chief Complaints: * ???Review labs * HPI: ???Depression Screening:?PHQ-9?Little interest or pleasure in doing things?Not at all,?Feeling down, depressed, or hopeless?Not at all,?Trouble falling or staying asleep, or sleeping too much?Not at all,?Feeling tired or having little energy?Not at all,?Poor appetite or overeating?Not at all,?Feeling bad about yourself or that you are a failure, or have let yourself or your family down?Not at all,?Trouble concentrating on things, such as reading the newspaper or watching television?Not at all,?Moving or speaking so slowly that other people could have noticed; or the opposite, being so fidgety or restless that you have been moving around a lot more than usual?Not at all,?Thoughts that you would be better off or of hurting yourself in some way?Not at all,?Total Score?0.?Interpretation and Intervention?Depression Screening Findings?Negative,?Follow-Up for Depression?: review of PHQ-9 found negative result, no follow-up needed.? here for for follow up. head is stuffy for one week. ???Communication Needs:?Communication Needs?Does the patient have a hearing impairment?No,?Does the patient have a vision impairment??Yes,?If yes, what is the vision impairment??Glasses,?Does the patient have a cognition impairment??No.?Fall Risk:?History?Have you had any falls with injury in the past year??Yes slipped on the ice landed on his back went to the chiropractor 10-08-24.,?Have you had two or more falls in the past year??No.?SDOH Questions:?SDOH Questions?In the past year have you been worried about losing housing??No,?In the past year have you or any family members you live with been unable to get any of the following when it was really needed? Check all that apply:?None.? * ROS:?General/Constitutional:?Change in appetite?denies.?Chills?denies.?Fever?denies.?Ophthalmologic:?Blurred vision?denies.?Discharge?denies.?Pain?denies.?ENT:?Decreased hearing?denies.?Sore throat?denies.?Swollen glands?denies.?Endocrine:?Cold intolerance?denies.?Excessive thirst?denies.?Heat intolerance?denies.?Weight loss?denies.?Respiratory:?Cough?denies.?Shortness of breath at rest?denies.?Shortness of breath with exertion?denies.?Wheezing?denies.?Cardiovascular:?Chest pain at rest?denies.?Chest pain with exertion?denies.?Irregular heartbeat?denies.?Shortness of breath?denies.?Gastrointestinal:?Abdominal pain?denies.?Change in bowel habits?denies.?Diarrhea?denies.?Nausea?denies.?Rectal bleeding?denies.?Vomiting?denies .?Genitourinary:?Blood in urine?denies.?Difficulty urinating?denies.?Frequent urination?denies.?Musculoskeletal:?Painful joints?denies.?Weakness?denies.?Skin:?Dry skin?denies.?Itching?denies.?Denies?Mole(s),? changes in moles, new moles or any lesions of concern.?Denies?Photosensitivity.?Rash?denies.?Neurologic:?Dizziness?denies.?Fainting?denies.?Headache?denies.? * Medical History:? * Surgical History:? * Hospitalization/Major Diagno stic Procedure:? * Family History:?Father: dece ased 55 yrs.?Mother: 56 yrs, diagnosed with Cancer.?2 son(s) , 1 daughter(s) . .? Father-Cirrhosis Mother breast Cancer, Denies mental health/substance abuse family history, Denies mental health/substance abuse family history, No pertinent family medical history. * Social History:?Tobacco Use:?Tobacco Use/Smoking?Patient is a?former smoker,?How long has it been since you last smoked??> 10 years,?Additional Findings: Tobacco Non-User?Former smoker, currently using no form of tobacco.?Drugs/Alcohol:?Alcohol Screen?Did you have a drink containing alcohol in the past year??No,?Points?0,?Interpretation?Negative.?Miscellaneous:?no Caffeine. Children: yes. no Community involvements. no Exercise. Home smoke detector use: yes. Housing: owning. Living with: spouse. Marital status: . Occupation: Retired. Pets: none. no Travel outside of the [place]. * Medications:?TakingFreeStyle Lancets 0 Miscellaneous used to test blood sugar daily invitro DX E11.9 once a dayFreeStyle Lite Test - Strip use to test blood sugar DX:E11.9 In Vitro once a dayBD Pen Needle Micro U/F 32G X 6 MM Miscellaneous DIRECTED UNDER SKIN DAILY 90 DAYS Betamethasone Dipropionate Aug 0.05 % Cream APPLY TO AFFECTED AREA EVERY DAY ProAir HFA 90MCG Aerosol Solution INHALE 2 PUFFS EVERY 4 HOURS NEEDED Inhalation every 4 hrsAtorvastatin Calcium 20 MG Tablet TAKE 1 TABLET BY MOUTH EVERY DAY Omeprazole 20 MG Capsule Delayed Release TAKE 1 CAPSULE BY MOUTH IN THE MORNING 30 MINS BEFORE BREAKFAST Farxiga 5 MG Tablet TAKE 1 TABLET BY MOUTH EVERY DAY IN THE MORNING Basaglar KwikPen 100 UNIT/mL, 3 mL pen Solution Pen- injector as directed Subcutaneous 15 units dailymetFORMIN HCl 500 MG Tablet TAKE 2 TABLETS BY MOUTH TWICE A DAY amLODIPine Besylate 10 MG Tablet TAKE 1 TABLET BY MOUTH EVERY DAY hydroCHLOROthiazide 25 MG Tablet TAKE 1 TABLET BY MOUTH EVERY DAY IN THE MORNING Losartan Potassium 100 MG Tablet TAKE 1 TABLET BY MOUTH EVERY DAY Carvedilol 25 MG Tablet TAKE 1 TABLET BY MOUTH TWICE A DAY WITH FOOD Taking FreeStyle Lancets 0 Miscellaneous used to test blood sugar daily invitro DX E11.9 once a dayTaking FreeStyle Lite Test - Strip use to test blood sugar DX:E11.9 In Vitro once a dayTaking BD Pen Needle Micro U/F 32G X 6 MM Miscellaneous DIRECTED UNDER SKIN DAILY 90 DAYS Taking Betamethasone Dipropionate Aug 0.05 % Cream APPLY TO AFFECTED AREA EVERY DAY Taking ProAir HFA 90MCG Aerosol Solution INHALE 2 PUFFS EVERY 4 HOURS NEEDED Inhalation every 4 hrsTaking Atorvastatin Calcium 20 MG Tablet TAKE 1 TABLET BY MOUTH EVERY DAY Taking Omeprazole 20 MG Capsule Delayed Release TAKE 1 CAPSULE BY MOUTH IN THE MORNING 30 MINS BEFORE BREAKFAST Taking Farxiga 5 MG Tablet TAKE 1 TABLET BY MOUTH EVERY DAY IN THE MORNING Taking Basaglar KwikPen 100 UNIT/mL, 3 mL pen Solution Pen-injector as directed Subcutaneous 15 units dailyTaking metFORMIN HCl 500 MG Tablet TAKE 2 TABLETS BY MOUTH TWICE A DAY Taking amLODIPine Besylate 10 MG Tablet TAKE 1 TABLET BY MOUTH EVERY DAY Taking hydroCHLOROthiazide 25 MG Tablet TAKE 1 TABLET BY MOUTH EVERY DAY IN THE MORNING Taking Losartan Potassium 100 MG Tablet TAKE 1 TABLET BY MOUTH EVERY DAY Taking Carvedilol 25 MG Tablet TAKE 1 TABLET BY MOUTH TWICE A DAY WITH FOOD Not-Taking/PRNInsulin Glargine 100 UNIT/ML Solution Pen-injector as directed Subcutaneous 10 units per dayguaiFENesin- Codeine 100-10 MG/5ML Solution 10 mL as needed Orally every 6 hrsPaxlovid (300/100) 20 x 150 MG & 10 x 100MG Tablet Therapy Pack as directed Orally 2 tabs nirm and 1 tab ritoGlimepiride 1MG Tablet TAKE 1 TABLET WITH BREAKFAST OR FIRST MAIN MEAL OF THE DAY Orally Once a dayMedication List reviewed and reconciled with the patientNot-Taking/PRN Insulin Glargine 100 UNIT/ML Solution Pen-injector as directed Subcutaneous 10 units per dayNot-Taking/PRN guaiFENesin-Codeine 100-10 MG/5ML Solution 10 mL as needed Orally every 6 hrsNot-Taking/PRN Paxlovid (300/100) 20 x 150 MG & 10 x 100MG Tablet Therapy Pack as directed Orally 2 tabs nirm and 1 tab ritoNot-Taking/PRN Glimepiride 1MG Tablet TAKE 1 TABLET WITH BREAKFAST OR FIRST MAIN MEAL OF THE DAY Orally Once a dayMedication List reviewed and reconciled with the patient * Allergies:?N.K.D.A.yes[Aller gies Verified] Objective: * Vitals:?Ht: 69.25, Wt:194, B CT:28.44, BP:142/60 weight is down 6 pounds since 07-23-24. * ???Past Orders: ???Lab:Lipid Panel (Order 10/19/2024) (Collection Date - 10/19/2024) ? Value Reference Range ?Triglycerides 302 H <150 - mg/dL ?Cholesterol 191 <200 - m g/dL ?LDL Cholesterol Calculated 99 <100 - mg/dL ?HDL Cholesterol 32 L >40 - mg/dL ???Lab:Liver Panel (Order - 10/19/2024) (Collection Date - 10/19/2024) ? Value Reference Range ?Bilirubin Direct 0.1 0.0 -0.5 - mg/dL ???Lab:PSA,Total (Free>4and< 10) (Order Date - 10/19/2024) (Collection Date - 10/19/2024) ? Value Reference Range ?PSA,Total (Free>4and<10) 0.89 0.00-4.00 - ng/mL ???Lab:Microalbumin, Random (Order Date - 10/19/2024) (Collection Date - 10/19/2024) ? Value Reference Range ?Creatinine Urine 42.80 - m g/dL ?Microalbumin Urine 1880.0 - mg/L ?Microalbum Creatinine Ratio Ur 4392.5 H <30 - ug/mg cr ???Lab:Complete Blood Count Auto Diff (Order Date - 10/19/2024) (Collection Date - 10/19/2024) ? Value Reference Range ?White Blood Count 9.6 4. 8-10.8 - X10*3/uL ?Red Blood Count 5.09 4.60 -5.80 - X10*6/uL ?Hemoglobin 15.4 14.0-18.0 - g/dl ?Hematocrit 45.1 42.0-52.0 - % ?Mean Corpuscular Volume 88.6 80.0-98.0 - fL ?Mean Corpuscular Hemoglobin 30.3 27.0-33.0 - pg ?Mean Corpuscular HGB Conc 34.1 31.0-36.0 - g/dl ?Red Cell Distribution Width 12.8 11.0-16.0 - % ?Platelet Count 272 160-4 00 - X10*3/uL ?Mean Platelet Volume 11.9 9.4-12.4 - fL ?Neutrophils Percent Auto 71.5 45-73 - % ?Imm Gran Pct Auto 0.4 0. 0-0.4 - % ?Lymphocytes Percent Auto 15.6 L 20-40 - % ?Monocytes Percent Auto 6.7 2-11 - % ?Eosinophils Percent Auto 5.3 H 0-4 - % ?Basophils Percent Auto 0.5 0-2 - % ?NRBC Pct Auto 0.0 0.0-0. 2 - /100WBC ?Neutrophils Absolute Auto 6.9 2.0-8.3 - x10*3/uL ?Imm Gran Abs Auto 0.04 H 0. 00-0.03 - X10*3/uL ?Lymphocytes Absolute Auto 1.5 1.2-4.9 - X10*3/uL ?Monocytes Absolute Auto 0.6 0.1-1.2 - X10*3/uL ?Eosinophils Absolute Auto 0.5 H 0.0-0.4 - X10*3/uL ?Basophils Absolute Auto 0.1 0.0-0.2 - X10*3/uL ?NRBC Abs Auto 0.000 0.0-0. 012 - X10*3/uL ???Lab:Hemoglobin A1c (Order Date - 10/19/2024) (Collection Date - 10/19/2024) ? Value Reference Range ?Hemoglobin A1c % 8.2 H <6. 0 - % ?Estimated Average Glucose 189 - mg/dL ???Lab:Comprehensive [place]. P aimee Fast (Order Date - 10/19/2024) (Collection Date - 10/19/2024) ? Value Reference Range ?Sodium 137 135-145 - mmo l/L ?Bilirubin Total 0.5 0.0- 1.0 - mg/dL ?Aspartate Amino Transferase 31 5-37 - U/L ?Alanine Aminotransferase 12 0-40 - U/L ?Total Protein 6.9 6.5-8. 0 - g/dL ?Albumin Level 3.6 3.5-5. 0 - g/dL ?Alkaline Phosphatase 101 39-117 - U/L ?Potassium 3.5 3.3-5.1 - mmol/L ?Chloride 101 96-108 - mm ol/L ?Carbon Dioxide 27 22-29 - mmol/L ?Anion Gap 13 12-20 - ?Blood Urea Nitrogen 22 H 9-16 - mg/dL ?Creatinine 2.08 H 0.5-1.4 - mg/dL ?Estimated Glomerular Filt Rate 31 - ?Glucose Fasting 211 H 60-9 9 - mg/dL ?Calcium 9.1 8.4-10.2 - m g/dL ???Lab:UA ClnCatch+Micro w/r flx Cult (Order Date - 10/19/2024) (Collection Date - 10/19/2024) ? Value Reference Range ?Color Urine Yellow - ?Appearance Urine Clear - ?PH 6.5 5.0-9.0 - ?Glucose Urine UA >=1000 A Neg ative - mg/dL ?Urine Blood Trace A Negative - ?Specific [place] - Urine 1.015 1.005-1.025 - ?Urine Protein 300 (3+) A Neg-Tr galina - mg/dL ?Urine Ketones Negative Negati ve - mg/dL ?Nitrite Urine Negative Negati ve - ?Leukocyte Esterase Urine Negative Negative - ?RBC Urine 0-2 0-2 - /HPF ?WBC Urine 0-5 0-5 - /HPF ?Squamous Epithelial Cell Urine 0-2 0-2 - /HPF ?Bacteria Urine None Seen None Seen - ?Hyaline Casts Urine 0-2 0-2 - /LPF * Examination: ???General Examination: ?GENERAL APPEARANCE:?well developed, well nourished, in no acute distress.?HEAD:?normocephalic, atraumatic.?EYES:?pupils equal, round, reactive to light and accommodation, sclera non-icteric.?EARS:?normal.?ORAL CAVITY:?mucosa moist.?THROAT:?clear.?NECK/THYROID:?neck supple, full range of motion, no cervical lymphadenopathy, no bruits.?SKIN:?warm and dry, no suspicious lesions/ has rash on both lower legs.?HEART:?regular rate and rhythm, S1, S2 normal, , abnormal with 2/6 LEANN at apex.?LUNGS:?clear to auscultation bilaterally.?ABDOMEN:?soft, nontender, nondistended, bowel sounds present, normal, no organomegaly , no masses palpable.?RECTAL EXAM:?normal tone, no external hemorrhoids, no masses palpable, prostate normal, stool guaiac negative.?MALE GENITOURINARY:?circumcised , no penile lesions or discharge , testes descended bilaterally.?EXTREMITIES:?no clubbing, cyanosis, or edema.?NEUROLOGIC:?nonfocal, motor strength normal upper and lower extremities, sensory exam intact.? Assessment: * Assessment: 1.?Microscopic hematuria - R 31.29 (Primary)?2.?Elevated serum creatinine - R79.89?3.?Pruritic rash - L28.2?4.?Cardiac murmur - R01.1?5.?Type 2 diabetes mellitus without complication - E11.9? Plan: * Treatment: 2.?Elevated serum creatinine ? Notes: referral to nephrology?? 3.?Pruritic rash? Notes: referral to [facility] in [place]? Referral To:[facility]??Dermatology ?Reason:Pruritic rash 4.?Cardiac murmur? Notes: pending diagnostic testing?? 5.?Type 2 diabetes mellitus without complication? Notes: not at goal, advised on diet, will contiue to monitor and will contnue current regiment?? 6.?Others? Referral To:Maria Rodrigues??Nephrology ?Reason:Elevated creatinine * Procedure Codes:? * Preventive Medicine:? ??Diabetes Care Plan:?Patient Lifestyle Goals?Needs to maintain diet control.?Treatment Goals?A1C< 7.?Barriers ?Needs better diet control.?Self- Managment Plan?Increase light exercise to 3 times a week for 30 minutes.?Expected Outcome?maintaining stable blood sugar levels within a target range.? * Follow Up:?3 Months * * Sign off status: Completed true * Provider:?Juan Manuel Castorena MD Date:?0 10/26/2024 Generated for Cory kwan/[place]/eTransmitting on:?01/17/2025 04:08 PM EDT History and Physical Notes * HPI (History of Present Illness) Category Sub-Category Detail Notes Category Not es Depression Screening PHQ-9 Little inte rest or pleasure in doing things: Not at all here for for follow up. head is stuffy for one week Feeling down, depressed, or hopeless: No t at all Trouble falling or staying asleep, or sl eeping too much: Not at all Feeling tired or having little energy: N ot at all Poor appetite or overeating: Not at all Feeling bad about yourself o r that you are a failure, or have let yourself or your family down: Not at all Trouble concentrating on thi ngs, such as reading the newspaper or watching television: Not at all Moving or speaking so slowly that other people could have noticed; or the opposite, being so fidgety or restless that you have been moving around a lot more than usual: Not at all Thoughts that you would be b amanda off or of hurting yourself in some way: Not at all Total Score: 0 Interpretation and Intervention Depression Maxine bryant Findings: Negative Follow-Up for Depression: : review of PH Q-9 found negative result, no follow-up needed SDOH Questions SDOH Questions In the past year have you been worried about losing housing?: No In the past year have you or any family members you live with been unable to get any of the following when it was really needed? Check all that apply:: None Fall Risk History Have you had any falls with injury in the past year?: Yes slipped on the ice landed on his back went to the chiropractor 10-08-24. Have you had two or more falls in the ?: No Communication Needs Communication Needs Does the patient have a hearing impairment: No Does the patient have a vision impairmen t?: Yes ?If yes, what is the vision impairment?: Glasses Does the patient have a cognition impair ment?: No Examination Category Sub-Category Detail Notes Category Not es General Examination GENERAL APPEARANCE: well dev eloped, well nourished, in no acute distress HEAD: normocephalic, atrau matic EYES: pupils equal, round, reactive to light and accommodation, sclera non- icteric EARS: normal THROAT: clear NECK/THYROID: neck supple, full ra nge of motion, no cervical lymphadenopathy, no bruits HEART: regular rate and rhy thm, S1, S2 normal, , abnormal with 2/6 LEANN at apex LUNGS: clear to auscultatio n bilaterally ABDOMEN: soft, nontender, non distended, bowel sounds present, normal, no organomegaly , no masses palpable NEUROLOGIC: nonfocal, motor stre ngth normal upper and lower extremities, sensory exam intact SKIN: warm and dry, no cuate picious lesions/ has rash on both lower legs EXTREMITIES: no clubbing, cyanosi s, or edema MALE GENITOURINARY: circumcised , no pen ile lesions or discharge , testes descended bilaterally RECTAL EXAM: normal tone, no exte rnal hemorrhoids, no masses palpable, prostate normal, stool guaiac negative ORAL CAVITY: mucosa moist Consultation Request Notes Referral Date Referring Provider Referred Provider Not es 10/26/2024 Juan Manuel Castorena Jonathan Elevate d creatinine 10/26/2024 Juan Manuel Castorena [facility], [place] Pruritic rash
== END 2025-01-17 14:39 | disposition home or self-care (01) ==
LOC: HO.US 14:38
PROVIDERS: PCP Internal Medicine; Visit Provider Internal Medicine Nephrology
DX: N18.30 Chronic kidney disease, stage 3 unspecified (principal); R80.9 Proteinuria, unspecified; R31.9 Hematuria, unspecified
CPT/HCPCS: 76775

== ENCOUNTER → 2025-01-17 15:01 | Outpatient (BNV) | payer MEDICARE, SELFPAY | PROVIDERS: PCP Internal Medicine; Visit Provider Radiology Diagnostic Radiology | DX: N28.1 Cyst of kidney, acquired (principal); K76.89 Other specified diseases of liver | CPT/HCPCS: 76775 ==

== ENCOUNTER → 2025-02-19 08:14 | Outpatient (REF) | payer MEDICARE, SELFPAY ==
--- NOTE | 2025-02-19 08:20 | CA_ITS ---
Transthoracic Echocardiogram Patient (Last, First, Middle): Dante Muniz, Gender: Male Date of : 1940 Age: 84 Procedure Date: 02/19/2025 Procedure Type: Transthoracic Echocardiogram Location: OP Height: 177.8 cm Weight: 86.18 kg BSA: 2.04 m2 Heart Rate: bpm BP: 122 / 60 mmHg Supervisor Production: Referring MD: Juan Manuel Castorena MD Symptoms: R01.1 CA MURMUR Study Quality: Fair ECG Rhythm: Bradycardia Conclusions: - The left ventricular systolic function is normal. The calculated ejection fraction is 65% by biplane method. - Aortic valve sclerosis with early stenosis. Findings Left Ventricle Normal left ventricular cavity size. There is mildly increased left ventricular wall thickness. The left ventricular systolic function is normal. The calculated ejection fraction is 65% by biplane method. There is no evidence of regional wall motion abnormalities. Evidence suggests grade I (mild) diastolic dysfunction. Right Ventricle Normal right ventricular cavity size and systolic function. Atria The left atrium is likely dilated. The right atrium is normal in size. Aortic Valve There is mild calcification of the aortic valve. There is no aortic valve regurgitation. Early aortic stenosis. Mitral Valve The mitral valve appears normal. There is trace mitral valve regurgitation. There is no mitral valve stenosis. Pulmonic Valve The pulmonic valve is likely normal. Tricuspid Valve There is no tricuspid valve regurgitation. Tricuspid regurgitation envelope is inadequate for calculation of right ventricular systolic pressure. Great Vessels The asc aorta is normal in size. Venous The inferior vena cava is normal in size and collapses greater than 50% with inspiration. Pericardium/Pleural There is no evidence of pericardial effusion. Prior Study Comparison No prior study available for comparison. Measurements 2D Linear Measurements IVSd: 1.24 0.6-0.9/0.6-1.0 cm LVIDd: 4.31 3.9-5.3/4.2-5.9 cm LVIDd Index: 2.11 2.4-3.2/2.2-3.1 cm/m2 LVIDs: 2.52 2.0-3.6 cm LVPWd: 1.20 0.7-1.1 cm Ao Root: 3.00 2.1-3.5 cm LA Diam: 4.10 2.7-3.8/3.0-4.0 cm LAIDs Index: 2.01 1.5-2.3 cm/m2 LV Mass: 236.58 67-162/88-224 g LV Mass Index: 115.97 43-95/49-115 g/m2 LVOT Diam: 2.00 3.0+(-)1.3 cm 2D Systolic Function EF 4C: 65.30 >55% EF 2C: 64.70 >55% EF BiP: 65.20 >55% Mitral Valve MV Pk E: 0.58 MV PK A: 1.01 MV Decel Time: 325.00 E/A: 0.60 E'Lateral: 2.94 E'Medial: 5.66 E/E' Med: 10.20 E/E' Lat: 19.70 PHT: 95.00 MVA PHT: 2.32 Decel [place]'S: 1.78 Aortic Valve AoV Pk Asa: 2.00 AoV Mn Asa: 1.35 AoV VTI: 0.49 AoV Pk Grad: 16.00 Aov Mn Grad: 9.00 FORREST Cont.VTI: 1.91 LVOT LVOT Pk Asa: 0.99 LVOT Mn Asa: 0.62 LVOT VTI: 0.30 LVOT Pk Grad: 4.00 LVOT Mn Grad: 2.00 LVOT Diam: 2.00 LVOT Area: 3.14 Diastolic Function MV Pk E: 0.58 MV Pk A: 1.01 E/A: 0.60 E'Medial: 5.66 E/E' Med: 10.20 E' Laterial: 2.94 E/E' Lat: 19.70 Right Ventricle TAPSE (mm): 22.30 TVS' Asa: 10.60 Tricuspid Valve TR Pk Asa: 2.23 TR Pk Grad: 20.00 Great Vessels Aorta Ao Root-2D: 3.00 2.0-3.7 cm Ao Asc: 3.30 2.1-3.4 cm Pulmonary Valve PV Pk Asa: 1.26 Peak PV Grad: 6.00 Updated in Other Vendor System with Status of Final Julio Lopez MD electronically signed on 02/21/2025 10:54:42 AM with status of Final
--- OUTSIDE RECORDS SUMMARY | 2025-02-19 08:21 | XMS_ITS ---
Author Organization Juan Manuel Castorena MD Address [address] [place] [phone] Care Team Providers Care Business Analytics Director Name Role Phone Juan Manuel Castorena Primary Care Provider Medications Medication SIG (Take, Route, Frequency, Duration) Notes Start Date End Date Status Betamethasone Dipropionate Aug 0.05 % APPLY TO AFFECTED AREA EVERY DAY for 50 Active Encounters Encounter Location Date Provider Diagnosis Juan Manuel Castorena MD [facility] [address] [place] [phone] 11/16/2024 Juan Manuel Castorena Plan Of Treatment Medication Medication Name Sig Start Date Stop Date Notes Betamethasone Dipropionate A ug 0.05 % APPLY TO AFFECTED AREA EVERY DAY for 50 Next Appt Details Provider Name:Juan Manuel narayanan, 04/02/2025 10:15:00 AM, [address] [place] [address], [address], [phone], Provider Name:Juan Manuel narayanan, 04/18/2025 07:30:00 AM, [address] [place] [address], [address], [phone], Provider Name:Juan Manuel Huffman ier, 05/03/2025 10:00:00 AM, [address], [address], [place], [phone], Provider Name:Juan Manuel Huffman ier, 10/25/2025 07:30:00 AM, [address], [address], [place], [phone], Provider Name:Juan Manuel Huffman ier, 11/01/2025 08:30:00 AM, [address], [address], [place], [phone], Progress Notes * CIERA MUNIZ CDOB:1940 (84 yo M)Acc No.[id number]:11/16/2024 Patient:?SUKHWINDER, CIERA C :1940???Age:84 Y???Sex:Male Address:[address] [place] [address], [address] * Refills? Refill Betamethasone Dipropionate Aug Cream, 0.05 %, 50 Gram, APPLY TO AFFECTED AREA EVERY DAY, 50, Refills=3 * true * Date:? Generated for Cory kwan/Cheyenne/Armandosmitting on:?02/19/2025 08:21 AM EDT
--- OUTSIDE RECORDS SUMMARY | 2025-02-19 08:22 | XMS_ITS ---
Author Organization Juan Manuel Castorena MD Address [address] [place] [phone] Care Team Providers Care Building Operator Name Role Phone Juan Manuel Castorena Primary Care Provider REASON FOR VISIT new order for CT abd Encounters Encounter Location Date Provider Diagnosis Juan Manuel Castorena MD [address] [place] [address] [place] [phone] 01/28/2025 Juan Manuel Castorena Liver mass R16.0 Assessments Encounter Date Diagnosis (ICD Code) Assessment Notes Treatment Notes Treatment Clinical Notes Section Notes 01/28/2025 Liver mass (ICD-10 - R16.0) Plan Of Treatment Pending Test Test Name Order Date CT ABD W&WO CONTRAST 01/28/2025 Next Appt Details Provider Name:Juan Manuel narayanan, 04/02/2025 10:15:00 AM, [address] [place] [address], [address], [phone], Provider Name:Juan Manuel narayanan, 04/18/2025 07:30:00 AM, [address] [place] [address], [phone], Provider Name:Juan Manuel Huffman ier, 05/03/2025 10:00:00 AM, [address], [address], [place], [phone], Provider Name:Juan Manuel Huffman ier, 10/25/2025 07:30:00 AM, [address], [address], [place], [phone], Provider Name:Juan Manuel Huffman ier, 11/01/2025 08:30:00 AM, [address], [address], [place], [phone], Progress Notes * CIERA MUNIZ CDOB:1940 (84 yo M)Acc No.[id number]:01/28/2025 Patient:?SUKHWINDER, CIERA C :1940???Age:84 Y???Sex:Male Address:[address] [place] [address], [id number] Subjective: * Chief Complaints: * ???new order for CT abd * Medical History:? * Surgical History:? * Hospitalization/Major Diagno stic Procedure:? * Medications:? Objective: * Vitals:? * Physical Examination:? Assessment: * Assessment: 1.?Liver mass - R16.0??? Plan: * Treatment: * Procedure Codes:? * true * Date:? Generated for Cory kwan/Cheyenne/eTransmitting on:?02/19/2025 08:22 AM EDT
--- OUTSIDE RECORDS SUMMARY | 2025-02-19 08:22 | XMS_ITS | Clinical Summary ---
Author Organization [facility] Address [address] [place] [phone] Phone Care Team Providers Care Buffer Operator Name Role Phone Juan Manuel Castorena MD Primary Care Provider Allergies No known active allergies Medications amLODIPine [...] SUBCUTANEOUSLY DAILY DIRECTED 90 10/29/19 25 Active Active Problems Problem Noted Date Diagnosed Date [...] Office Visit [facility] [address] [address] Jean-Paul Sosa MD Stage 3 chronic kidney disease, not otherwise specified (HCC) (Primary Dx); Proteinuria, not otherwise specified; Hematuria, not otherwise specified; Chronic kidney disease, stage 4 (severe) (HCC); Diabetes mellitus, not otherwise specified (HCC); Hypertension; 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 Orders Only [facility] [address] [phone] Jean-Paul Sosa MD from Last 3 Months [...] Office Visit [facility] [address] [address] Jean-Paul Sosa MD [facility] [address] [address] Health Maintenance Due Date Last Done Comments Pneumococcal Vaccine: 50+ Ye ars (1 of 2 - PCV) 1959 Diabetes: Hemoglobin A1C 10/30/2024 Diabetes: Ophthalmology Exam [...] ANCA Profile (RDL) (12/20/2024 11:42 AM EST) Pathologist [facility] ANCA by IFA (RDL) Negative Negative [employer] MPO Abs <20 <20 Units [facility] Antiproteinase 3 (MS-3) Abs <20 <20 Units [employer] 12/20/2024 11:4 2 AM EST 12/20/2024 us Jean-Paul Sosa MD LAB BLOOD ORDERABLES Final Re sult [facility] [employer] [address] [place] [address] * Anti-Glomerular Basement Membrane Ab (RDL) (12/20/2024 11:42 AM EST) Pathologist [facility] Anti-Glomerular Basement Membrane Abs (RDL) <20 <20 Units [employer] 12/20/2024 11:4 2 AM EST 12/20/2024 Jean-Paul Sosa MD LAB BLOOD ORDERABLES Final Re sult [facility] [employer] [address] [place] [address] * HIV 1/2 Antibody w/RNA Reflex (12/20/2024 11:42 AM EST) Pathologist [facility] HIV-1 RNA Non Reactive Non Reactive [facility] HIV 2 DNA/RNA Qualitative Real Time PCR Non Reactive Non Reactive [facility] 12/20/2024 11:4 2 AM EST 12/20/2024 Jean-Paul Sosa MD LAB BLOOD ORDERABLES Final Re sult [facility] [place] [address] * (ABNORMAL) MARTI and PE, Serum (12/20/2024 11:42 AM EST) IgG 611 603 - 1,613 mg/dL [facility] IgA 347 61 - 437 mg/dL [facility] IgM 54 15 - 143 mg/dL [facility] Serum Albumin 3.2 2.9 - 4.4 g/dL [facility] Pkjjd-6-Wdncuvqa 0.2 0.0 - 0.4 g/dL [facility] Kaavg-5-Lamirhcg 1.4(H) 0.4 - 1.0 g/dL [facility] Beta Globulin 1.2 0.7 - 1.3 g/dL [facility] Gamma Globulin in Serum 0.6 0.4 - 1.8 g/dL [facility] [phone] M-Abner Serum Not Observed Not Observed g/dL [facility] [phone] Globulin, Total 3.4 2.2 - 3.9 g/dL [facility] [phone] Albumin/Globulin Ratio Calculated 1.0 0.7 - 1.7 [facility] [phone] Immunofixation Result, Serum Comment(A) [facility] Comment: A faint band was noted in lambda; suggestive of free monoclonal protein. Recommend retesting in 4-6 months. Please note Comment [facility] Comment: Protein electrophoresis scan will follow via computer, mail, or professional development director delivery. PDF . [facility] 12/20/2024 11:4 2 AM EST 12/20/2024 Jean-Paul Sosa MD LAB BLOOD ORDERABLES Final Re sult Performing Organization Address City/[facility]/ZIP Co de Phone Number [facility] [address] [place] [address] * (ABNORMAL) Complement C3 & C4 (12/20/2024 11:42 AM EST) C3 Complement 197(H) 82 - 167 mg/dL [facility] C4 Complement 46(H) 12 - 38 mg/dL [facility] 12/20/2024 11:4 2 AM EST 12/20/2024 Jean-Paul Sosa MD LAB BLOOD ORDERABLES Final Re sult [facility] [address] [place] [address] * MARTI, Urine (12/20/2024 11:42 AM EST) [facility] MARTI Interpretation:U Comment [facility] Bety Comment: The immunofixation pattern appears unremarkable. Evidence of monoclonal protein is not apparent. 12/20/2024 11:4 2 AM EST 12/20/2024 Jean-Paul Sosa MD LAB URINE ORDERABLES Final Re sult Performing Organization Address [facility] Co de Phone Number [facility] [address] [place] [address] * Phospholipase A2 Receptor Antibodies, Serum (12/20/2024 11:42 AM EST) [facility] Anti-PLA2R <1.8 0.0 - 19.9 RU/mL [facility] Comment: ?Negative ?<14.0 ?Borderline ??14.0 - 19.9 ?Positive ?>19.9 12/20/2024 11:4 2 AM EST 12/20/2024 Jean-Paul Sosa MD LAB BLOOD ORDERABLES Final Re sult Performing Organization Address City/[facility] Co de Phone Number [facility] [address] [place] [phone] * INTERPRETATION (12/20/2024 11:42 AM EST) Interpretation Comment [facility] [place] [phone] Comment: Not infected with HCV unless early or acute infection is suspected (which may be delayed in an immunocompromised individual), or other evidence exists to indicate HCV infection. 12/20/2024 11:4 2 AM EST 12/20/2024 Jean-Paul Sosa MD LAB [id number] SOLICITED RESULTS Final Result Performing Organization Address [facility]/ZIP Co de Phone Number [facility] [address], [address] [place] [address] * HEPATITIS C AB W/REFL TO HCV RNA, QN, PCR (12/20/2024 11:42 AM EST) HCV Ab Non Reactive Non Reactive [facility] [place] 12/20/2024 11:4 2 AM EST 12/20/2024 Jean-Paul Sosa MD LAB BLOOD ORDERABLES Final Re sult Performing Organization Address [facility] de Phone Number [facility] Siri [place] [address], [address] [place] [address] * Hepatitis B Surface Ab (Qual) (12/20/2024 11:42 AM EST) Hepatitis B Surface Ab Qual Non Reactive [facility] [place] Comment: ? Non Reactive: Not immune to HBV infection. ? Equivocal: Unable to determine if anti-HBs ?is present at levels consistent ?with immunity. ?Reactive: Anti-HBs concentration detected ?at greater than 10 mIU/mL. ?Individual is considered to be ?immune to infection with HBV. 12/20/2024 11:4 2 AM EST 12/20/2024 us Jean-Paul Sosa MD LAB BLOOD ORDERABLES Final Re sult [facility] [place] [address], [address] [place] [address] * Microscopic Examination (12/20/2024 11:42 AM EST) WBC, Urine None seen 0 - 5 /hpf [facility] RBC, Urine None seen 0 - 2 /hpf [facility] Squamous Epithelial, Urine None seen 0 - 10 /hpf [facility] Casts None seen None seen /lpf [facility] Bacteria, Urine None seen None seen/Few [facility] 12/20/2024 11:4 2 AM EST 12/20/2024 us Jean-Paul Sosa MD LAB MICROBIOLOGY - GENERAL OR DERABLES Final Result [facility] [address] [place] [address] * ANCA Panel (MPO/PR3) (12/20/2024 11:42 AM EST) MPO Abs <0.2 0.0 - 0.9 units [facility] Antiproteinase 3 (MS-3) Abs <0.2 0.0 - 0.9 units [facility] C-ANCA <1:20 Neg:<1:20 titer [facility] Perinuclear (P-ANCA) <1:20 Neg:<1:20 titer [facility] Comment: The presence of positive fluorescence exhibiting P-ANCA or C-ANCA patterns alone is not specific for the diagnosis of Jr's Granulomatosis (WG) or microscopic polyangiitis. Decisions about treatment should not be based solely on ANCA IFA results. ??The International ANCA Group Consensus recommends follow up testing of positive sera with both MS-3 and MPO-ANCA enzyme immunoassays. As many as 5% serum samples are positive only by EIA. Ref. AM J Clin Pathol 1999;111:507-513. Atypical p-ANCA <1:20 Neg:<1:20 titer [facility] Comment: The atypical pANCA pattern has been observed in a significant percentage of patients with ulcerative colitis, primary sclerosing cholangitis and autoimmune hepatitis. 12/20/2024 11:4 2 AM EST 12/20/2024 us Jean-Paul Sosa MD LAB BLOOD ORDERABLES Final Re sult [facility] [address] [place] [address] * (ABNORMAL) Protein, Total, Random Urine w/Creatinine (Protein/Creat Ratio) (12/20/2024 11:42 AM EST) Creatinine, Ur 35.5 Not Estab. mg/dL [facility] Protein, Ur 292.6 Not Estab. mg/dL [facility] Comment: Results confirmed on dilution. Urine Protein/Creati nine Ratio 8,242(H) 0 - 200 mg/g creat [facility] [place] 12/20/2024 11:4 2 AM EST 12/20/2024 us Jean-Paul oSsa MD LAB URINE ORDERABLES Final Re sult Performing Organization Address [facility]/ZIP Co de Phone Number [facility] [address] [place] [address] * (ABNORMAL) Urine Albumin / Creatinine Ratio (12/20/2024 11:42 AM EST) Pathologist [facility] Albumin, Urine 1,740.3 Not Estab. ug/mL [facility] Comment: Results confirmed on dilution. Albumin/Creatin ine Ratio 4,902(H) 0 - 29 mg/g creat [facility] Comment: ? Normal: ?0 - ??29 ? Moderately increased: 30 - 300 ? Severely increased: ? >300 12/20/2024 11:4 2 AM EST 12/20/2024 us Jean-Paul Sosa MD LAB URINE ORDERABLES Final Re sult Performing Organization Address [facility] Co de Phone Number [facility] [place] [address] * Hepatitis B Core Antibody, Total (12/20/2024 11:42 AM EST) [facility] HBc Total Ab, S Negative Negative [facility] [place] 12/20/2024 11:4 2 AM EST 12/20/2024 Jean-Paul Sosa MD LAB BLOOD ORDERABLES Final Re sult [facility] [place] [address], [address] [place] [address] * Hepatitis B Surface Antigen (12/20/2024 11:42 AM EST) Pathologist [facility] Hep B Surface Ag Negative Negative [facility] [place] 12/20/2024 11:4 2 AM EST 12/20/2024 us Jean-Paul Sosa MD LAB BLOOD ORDERABLES Final Re sult [facility] [place] [address], [address] [place] [address] * (ABNORMAL) Urinalysis with microscopic (12/20/2024 11:42 AM EST) Pathologist [facility] Specific Leopold, Urine 1.016 1.005 - 1.030 [facility] pH Urine 6.0 5.0 - 7.5 [facility] Color, Urine Yellow Yellow [facility] Appearance Urine Clear Clear [facility] [place] WBC Esterase Urine Negative Negative [facility] Protein, Ur 3+(A) Negative/Tra ce [facility] Glucose, Ur 3+(A) Negative [facility] Ketones, Urine Negative Negative [facility] [place] Blood Urine Negative Negative [facility] Bilirubin Urine Negative Negative [facility] [place] [phone] Urobilinogen Urine 0.2 0.2 - 1.0 mg/dL [facility] Nitrite, Urine Negative Negative [facility] [place] Microscopic Examination See below: [facility] Comment:Microscopic was toby cated and was performed. 12/20/2024 11:4 2 AM EST 12/20/2024 us Jean-Paul Sosa MD LAB URINE ORDERABLES Final Re sult [facility] [address] [place] [address] * (ABNORMAL) CBC and Differential (12/20/2024 11:42 AM EST) WBC 6.8 3.4 - 10.8 x10E3/uL [facility] RBC 4.77 4.14 - 5.80 x10E6/uL [facility] Hemoglobin 14.9 13.0 - 17.7 g/dL [facility] Hematocrit 43.7 37.5 - 51.0 % [facility] MCV 92 79 - 97 fL [facility] MCH 31.2 26.6 - 33.0 pg [facility] MCHC 34.1 31.5 - 35.7 g/dL [facility] RDW 12.9 11.6 - 15.4 % [facility] Platelets 295 150 - 450 x10E3/uL [facility] Neutrophils Relative 59 Not Estab. % [facility] Lymphocytes Relative 24 Not Estab. % [facility] Monocytes 8 Not Estab. % [facility] Eosinophils Relative 8 Not Estab. % [facility] Basophils Relative 1 Not Estab. % [facility] Neutrophils Absolute 4.1 1.4 - 7.0 x10E3/uL [facility] Lymphocytes Absolute 1.6 0.7 - 3.1 x10E3/uL [facility] Monocytes Absolute 0.5 0.1 - 0.9 x10E3/uL [facility] Eosinophils Absolute 0.5(H) 0.0 - 0.4 x10E3/uL [facility] Basophils Absolute 0.1 0.0 - 0.2 x10E3/uL [facility] Immature Granulocytes 0 Not Estab. % [facility] Immature Grans (Absolute) 0.0 0.0 - 0.1 x10E3/uL [facility] 12/20/2024 11:4 2 AM EST 12/20/2024 Jean-Paul Sosa MD LAB BLOOD ORDERABLES Final Re sult Performing Organization Address City/[facility]/ZIP Co de Phone Number [facility] [address] [place] [address] * ERVIN Panel (12/20/2024 11:42 AM EST) ERVIN Negative Negative [facility] 12/20/2024 11:4 2 AM EST 12/20/2024 Jean-Paul Sosa MD LAB BLOOD ORDERABLES Final Re sult [facility] [address] [place] [address] * Phosphorus (12/20/2024 11:42 AM EST) Phosphorus 3.1 2.8 - 4.1 mg/dL [facility] 12/20/2024 11:4 2 AM EST 12/20/2024 Jean-Paul Sosa MD LAB BLOOD ORDERABLES Final Re sult [facility] [place] [address] [place] [address] * Magnesium (12/20/2024 11:42 AM EST) Magnesium 1.7 1.6 - 2.3 mg/dL [facility] 12/20/2024 11:4 2 AM EST 12/20/2024 Jean-Paul Sosa MD LAB BLOOD ORDERABLES Final Re sult Performing Organization Address [facility] Co de Phone Number [facility] [address] [place] [address] * (ABNORMAL) Comprehensive Metabolic Panel (12/20/2024 11:42 AM EST) Glucose 219(H) 70 - 99 mg/dL [facility] BUN 22 8 - 27 mg/dL [facility] Creatinine 1.84(H) 0.76 - 1.27 mg/dL [facility] eGFR CKD-EPI CR 2020 36(L) >59 mL/min/1.7 3 [facility] BUN/Creatinine Ratio 12 10 - 24 [facility] Sodium 140 134 - 144 mmol/L [facility] Potassium 4.1 3.5 - 5.2 mmol/L [facility] Chloride 99 96 - 106 mmol/L [facility] Bicarbonate (CO2) 22 20 - 29 mmol/L [facility] Calcium 9.3 8.6 - 10.2 mg/dL [facility] Total Protein 6.6 6.0 - 8.5 g/dL [facility] Albumin 4.1 3.7 - 4.7 g/dL [facility] Globulin 2.5 1.5 - 4.5 g/dL [facility] Total Bilirubin 0.3 0.0 - 1.2 mg/dL [facility] Alkaline Phosphatase 134(H) 44 - 121 IU/L [facility] AST (SGOT) 23 0 - 40 IU/L [facility] ALT (SGPT) 13 0 - 44 IU/L [facility] 12/20/2024 11:4 2 AM EST 12/20/2024 us Jean-Paul Sosa MD LAB BLOOD ORDERABLES Final Re sult [facility] [address] [place] [address] from Last 3 Months Insurance Medicare [facility] Care Teams Buffer Operator Relationship Specialty Start Date End Date Juan Manuel Castorena MD [address] [place] [address] [id number] [place], [place] PCP - General Internal Medicine 10/29/24
--- OUTSIDE RECORDS SUMMARY | 2025-02-19 08:22 | XMS_ITS ---
Author Organization Juan Manuel Castorena MD Address [address] [place] [phone] Care Team Providers Care Ic Design Manager Name Role Phone Juan Manuel Castorena Primary Care Provider Allergies No Known Allergies Results Component Value Reference Range Notes Hemoglobin A1c Reviewed date:01/22/2025 08:26:57 AM Interpretation: Performing Lab: Notes/Report: Hemoglobin A1c 7.9 Glucose, finger stick Reviewed date:01/22/2025 08:23:03 AM Interpretation: Performing Lab: Notes/Report: Value 196 REASON FOR VISIT CBACK US RENAL/ 3 MOF/U Medications Medication SIG (Take, Route, Frequency, Duration) Notes Start Date End Date Status Farxiga 5 MG TAKE 1 TABLET BY MOUTH EVERY DAY IN THE MORNING Active Glimepiride 1MG TAKE 1 TABLET WITH BREAKFAST OR FIRST MAIN MEAL OF THE DAY Orally Once a day for 90 Not-Taking metFORMIN HCl 500 MG TAKE 2 TABLETS BY MOUTH TWICE A DAY Active Paxlovid (300/100) 20 x 150 MG & 10 x 100MG as directed Orally 2 tabs nirm and 1 tab carola for 5 days 07/20/2022 Not-Taking Basaglar KwikPen 100 UNIT/ML 15 units Active Atorvastatin Calcium 20 MG TAKE 1 TABLET BY MOUTH EVERY DAY for 90 Active guaiFENesin-Codeine 100-10 MG/5ML 10 mL as needed Orally every 6 hrs for 10 days 09/06/2022 Not-Taking Insulin Glargine 100 UNIT/ML as directed Subcutaneous 10 units per day 03/03/2023 Not-Taking amLODIPine Besylate 10 MG TAKE 1 TABLET BY MOUTH EVERY DAY for 90 Active Betamethasone Dipropionate Aug 0.05 % APPLY TO AFFECTED AREA EVERY DAY for 50 Active Carvedilol 25 MG TAKE 1 TABLET BY MOUTH TWICE A DAY WITH FOOD for 90 Active Losartan Potassium 100 MG TAKE 1 TABLET BY MOUTH EVERY DAY Active hydroCHLOROthiazide 25 MG TAKE 1 TABLET BY MOUTH EVERY DAY IN THE MORNING Active Omeprazole 20 MG TAKE 1 CAPSULE BY MOUTH IN THE MORNING 30 MINS BEFORE BREAKFAST Active ProAir HFA 90MCG INHALE 2 PUFFS EVERY 4 HOURS NEEDED Inhalation every 4 hrs Active BD Pen Needle Micro U/F 32G X 6 MM DIRECTED UNDER SKIN DAILY 90 DAYS for 90 Active FreeStyle Lite Test - use to test blood sugar DX:E11.9 In Vitro once a day for 30 days 04/17/2019 Active FreeStyle Lancets 0 used to test blood sugar daily invitro DX E11.9 once a day for 90 days 08/12/2016 Active Vital Signs Blood pressure systolic 166 mm Hg 01/23/20 25 Blood pressure diastolic 70 mm Hg 025 Height 69.25 in 01/22/2025 Weight 190 lbs 01/22/2025 BMI 27.85 kg/m2 01/22/2025 weight is down 4 pounds [facility] e 10-26-24 Encounters Encounter Location Date Provider Diagnosis Juan Manuel Castorena MD [address] [place] [address] [place] [phone] 01/22/2025 Juan Manuel Castorena Type 2 diabetes mellitus without complication E11.9 ; Proteinuria, unspecified type R80.9 and Liver mass R16.0 Assessments Encounter Date Diagnosis (ICD Code) Assessment Notes Treatment Notes Treatment Clinical Notes Section Notes 01/22/2025 Type 2 diabetes mellitus without complication (ICD-10 - E11.9) stable, will continue current regiment 01/22/2025 Proteinuria, unspecified type (ICD-10 - R80.9) discussed findings of Renal US and need for further diagnostic testing of liver 01/22/2025 Liver mass (ICD-10 - R16.0) order faxed to [facility] , pending diagnostic testing Plan Of Treatment Medication Medication Name Sig Start Date Stop Date Notes Farxiga 5 MG TAKE 1 TABLET BY MAGO TH EVERY DAY IN THE MORNING metFORMIN HCl 500 MG TAKE 2 TABLETS BY M OUTH TWICE A DAY Basaglar KwikPen 100 UNIT/ML 15 units Treatment Notes Assessment Notes Type 2 diabetes mellitus wit hout complication stable, will continue current regiment Proteinuria, unspecified type discussed findings of Renal US and need for further diagnostic testing of liver Liver mass order faxed to [facility] , pending diagnostic testing Pending Test Test Name Order Date CT ABD NO CONTRAST 01/22/2025 Next Appt Details Follow Up: after ct done, Re ason: Provider Name:Juan Manuel narayanan, 04/02/2025 10:15:00 AM, [address] [place] [address], [address], [phone], Provider Name:Juan Manuel narayanan, 04/18/2025 07:30:00 AM, [address] [place] [address], [address], [phone], Provider Name:Juan Manuel hernandezr, 05/03/2025 10:00:00 AM, [address] [place] [address], [address], [phone], Provider Name:Juan Manuel hernandezr, 10/25/2025 07:30:00 AM, [address] [place] [address], [address], [phone], Provider Name:Juan Manuel hernandezr, 11/01/2025 08:30:00 AM, [address] [place] [address], [address], [phone], Progress Notes * CIERA MUNIZ CDOB:1940 (84 yo M)Acc No.[id number]:01/22/2025 Patient:?CIERA MUNIZ Provider:?Juan Manuel Castorena MD :1940???Age:84 Y???Sex:Male Junior e:01/22/2025 Address:[address] [place], [place] [phone] Subjective: * Chief Complaints: * ???CBACK US RENAL/ 3 MOF/U * HPI: ???Symptom(s):? patient is a 84 yo male here for 3 months follow up visit, follow up following renal US. * ROS:?General/Constitutional:?Denies?Chills.?Denies?Fatigue.?Denies?Fever.?Denies?Headache.?ENT:?Denies?Sore throat.?Endocrine:?Denies?Difficulty sleeping.?Denies?Dizziness.?Denies?Excessive sweating.?Denies?Excessive thirst.?Denies?Frequent urination.?Respiratory:?Denies?Cough.?Denies?Shortness of breath at rest.?Denies?Shortness of breath with exertion.?Gastrointestinal:?Denies?Diarrhea.?Denies?Nausea.? * Medical History:? * Surgical History:? * Hospitalization/Major Diagno stic Procedure:? * Medications:?TakingFreeStyle Lancets 0 Miscellaneous used to test blood sugar daily invitro DX E11.9 once a day FreeStyle Lite Test - Strip use to test blood sugar DX:E11.9 In Vitro once a day BD Pen Needle Micro U/F 32G X 6 MM Miscellaneous DIRECTED UNDER SKIN DAILY 90 DAYS ProAir HFA 90MCG Aerosol Solution INHALE 2 PUFFS EVERY 4 HOURS NEEDED Inhalation every 4 hrs Omeprazole 20 MG Capsule Delayed Release TAKE 1 CAPSULE BY MOUTH IN THE MORNING 30 MINS BEFORE BREAKFAST hydroCHLOROthiazide 25 MG Tablet TAKE 1 TABLET BY MOUTH EVERY DAY IN THE MORNING Losartan Potassium 100 MG Tablet TAKE 1 TABLET BY MOUTH EVERY DAY Carvedilol 25 MG Tablet TAKE 1 TABLET BY MOUTH TWICE A DAY WITH FOOD Basaglar KwikPen 100 UNIT/ML Solution Pen-injector 15 units Atorvastatin Calcium 20 MG Tablet TAKE 1 TABLET BY MOUTH EVERY DAY Betamethasone Dipropionate Aug 0.05 % Cream APPLY TO AFFECTED AREA EVERY DAY metFORMIN HCl 500 MG Tablet TAKE 2 TABLETS BY MOUTH TWICE A DAY Farxiga 5 MG Tablet TAKE 1 TABLET BY MOUTH EVERY DAY IN THE MORNING amLODIPine Besylate 10 MG Tablet TAKE 1 TABLET BY MOUTH EVERY DAY Taking FreeStyle Lancets 0 Miscellaneous used to test blood sugar daily invitro DX E11.9 once a day Taking FreeStyle Lite Test - Strip use to test blood sugar DX:E11.9 In Vitro once a day Taking BD Pen Needle Micro U/F 32G X 6 MM Miscellaneous DIRECTED UNDER SKIN DAILY 90 DAYS Taking ProAir HFA 90MCG Aerosol Solution INHALE 2 PUFFS EVERY 4 HOURS NEEDED Inhalation every 4 hrs Taking Omeprazole 20 MG Capsule Delayed Release TAKE 1 CAPSULE BY MOUTH IN THE MORNING 30 MINS BEFORE BREAKFAST Taking hydroCHLOROthiazide 25 MG Tablet TAKE 1 TABLET BY MOUTH EVERY DAY IN THE MORNING Taking Losartan Potassium 100 MG Tablet TAKE 1 TABLET BY MOUTH EVERY DAY Taking Carvedilol 25 MG Tablet TAKE 1 TABLET BY MOUTH TWICE A DAY WITH FOOD Taking Basaglar KwikPen 100 UNIT/ML Solution Pen-injector 15 units Taking Atorvastatin Calcium 20 MG Tablet TAKE 1 TABLET BY MOUTH EVERY DAY Taking Betamethasone Dipropionate Aug 0.05 % Cream APPLY TO AFFECTED AREA EVERY DAY Taking metFORMIN HCl 500 MG Tablet TAKE 2 TABLETS BY MOUTH TWICE A DAY Taking Farxiga 5 MG Tablet TAKE 1 TABLET BY MOUTH EVERY DAY IN THE MORNING Taking amLODIPine Besylate 10 MG Tablet TAKE 1 TABLET BY MOUTH EVERY DAY Not-Taking/PRNInsulin Glargine 100 UNIT/ML Solution Pen-injector as directed Subcutaneous 10 units per day guaiFENesin-Codeine 100-10 MG/5ML Solution 10 mL as needed Orally every 6 hrs Paxlovid (300/100) 20 x 150 MG & 10 x 100MG Tablet Therapy Pack as directed Orally 2 tabs nirm and 1 tab carola Glimepiride 1MG Tablet TAKE 1 TABLET WITH BREAKFAST OR FIRST MAIN MEAL OF THE DAY Orally Once a day Medication List reviewed and reconciled with the patientNot-Taking/PRN Insulin Glargine 100 UNIT/ML Solution Pen-injector as directed Subcutaneous 10 units per day Not-Taking/PRN guaiFENesin-Codeine 100-10 MG/5ML Solution 10 mL as needed Orally every 6 hrs Not-Taking/PRN Paxlovid (300/100) 20 x 150 MG & 10 x 100MG Tablet Therapy Pack as directed Orally 2 tabs nirm and 1 tab carola Not-Taking/PRN Glimepiride 1MG Tablet TAKE 1 TABLET WITH BREAKFAST OR FIRST MAIN MEAL OF THE DAY Orally Once a day Medication List reviewed and reconciled with the patient * Allergies:?N.K.D.A.yes[Aller gies Verified] Objective: * Vitals:?Ht: 69.25, Wt: 190, BMI:27.85, BP:166/70, Repeat BP:140/60, Wt-k.18. weight is down 4 pounds since 10-26-24. * Examination: ???General Examination: ?GENERAL APPEARANCE:?alert, well hydrated, in no distress.?HEAD:?normocephalic.?SKIN:?good turgor.?HEART:?no murmurs, rubs, gallops, regular rate and rhythm.?LUNGS:?no wheezes, rales, rhonchi, good air movement, clear to auscultation bilaterally.?ABDOMEN:?no organomegaly, soft, nontender, nondistended.? Assessment: * Assessment: 1.?Proteinuria, unspecified type - R80.9 (Primary)???2.?Type 2 diabetes mellitus without complication - E11.9???3.?Liver mass - R16.0??? Plan: * Treatment: 2.?Type 2 diabetes mellitus without complication? Continue Basaglar KwikPen Solution Pen-injector, 100 UNIT/ML, 15 units;?Continue metFORMIN HCl Tablet, 500 MG, TAKE 2 TABLETS BY MOUTH TWICE A DAY;?Continue Farxiga Tablet, 5 MG, TAKE 1 TABLET BY MOUTH EVERY DAY IN THE MORNING.?LAB: Hemoglobin A1c (Collection Date & Time - 01/22/2025) ? Value Reference Range ?Hemoglobin A1c 7.9 ?LAB: Glucose, finger stick (Collection Date & Time - 01/22/2025)* ? Value Reference Range ?Value 196 Notes: stable, will continue current regiment??3.?Liver mass?Imaging: CT ABD NO CONTRAST Notes: order faxed to [facility] , pending diagnostic testing?? * Procedure Codes:?38405 ASSAY , GLUCOSE, BLOOD QUANT, Modifiers: QW 61412 GLYCATED HEMOGLOBIN TEST, Modifiers: QW * Follow Up:?after ct done * * Sign off status: Completed true * Provider:?Juan Manuel Castorena MD Date:?0 01/22/2025 Generated for Cory kwan/[place]/Perezitting on:?02/19/2025 08:21 AM EDT History and Physical Notes * HPI (History of Present Illness) Category Sub-Category Detail Notes Category Not es Symptom(s) patient is a 84 yo male here for 3 months follow up visit, follow up following renal US Examination Category Sub-Category Detail Notes Category Not es General Examination GENERAL APPEARANCE: alert, w ell hydrated, in no distress HEAD: normocephalic HEART: no murmurs, rubs, ga llops, regular rate and rhythm LUNGS: no wheezes, rales, r honchi, good air movement, clear to auscultation bilaterally ABDOMEN: no organomegaly, sof t, nontender, nondistended SKIN: good turgor
--- OUTSIDE RECORDS SUMMARY | 2025-02-19 08:23 | XMS_ITS | Patient Health Record ---
Author Organization Juan Manuel Castorena MD Address [address] [place] [phone] Care Team Providers Care Laundry Aide Name Role Phone Juan Manuel Castorena Primary Care Provider Allergies No Known Allergies Results Component Value Reference Range Notes Hemoglobin A1c Reviewed date:07/23/2024 08:14:10 AM Interpretation: Performing Lab: Notes/Report: Hemoglobin A1c 7.5 Hemoglobin A1c Reviewed date:01/22/2025 08:26:57 AM Interpretation: Performing Lab: Notes/Report: Hemoglobin A1c 7.9 Liver Panel Reviewed date:04/12/2024 12:39:50 PM Interpretation: Performing Lab:[facility], [address] [place] [phone] Notes/Report: Bilirubin Total 0.5 0.0-1.0 mg/dL Bilirubin Direct 0.2 0.0-0.5 mg/dL Aspartate Amino Transferase 25 5-37 U/L Alanine Aminotransferase 18 0-40 U/L Total Protein 6.8 6.5-8.0 g/dL Albumin Level 3.8 3.5-5.0 g/dL Alkaline Phosphatase 77 39-117 U/L Glucose Fasting Reviewed date:04/12/2024 12:39:41 PM Interpretation: Performing Lab:[facility], [address] [place] [phone] Notes/Report: Glucose Fasting 192 60-99 mg/dL A fasting glucose of 126 mg/dl or greater on more than one occasion is considered diagnostic of diabetes. Lipid Panel with Reflex Reviewed date:04/12/2024 12:40:14 PM Interpretation: Performing Lab:[facility], [address] [place] [phone] Notes/Report: Triglycerides 289 <150 mg/dL Desirable Triglyceride: [...] A1c Reviewed date:04/12/2024 12:40:04 PM Interpretation: Performing Lab:[address] [phone] Notes/Report: Hemoglobin A1c % 7.3 <6.0 % [...] average glucose, using the formula of the N0W-Xjbjupz Average Glucose study (ADAG), Diabetes Care, Vol.31,#8, 2007 Complete Blood Count Auto Di ff Reviewed date:10/19/2024 12:22:35 PM Interpretation: Performing Lab:[facility], [address] [place] [phone] Notes/Report: White Blood Count 9.6 4.8-10.8 X10*3/uL [...] 0.0-0.2 /100WBC Neutrophils Absolute Auto 6.9 2.0-8.3 x10*3/uL Imm Gran Abs Auto 0.04 0.00-0.03 X10*3/uL Lymphocytes Absolute Auto 1.5 1.2-4.9 X10*3/uL Monocytes Absolute Auto 0.6 0.1-1.2 X10*3/uL Eosinophils Absolute Auto 0.5 0.0-0.4 X10*3/uL Basophils Absolute Auto 0.1 0.0-0.2 X10*3/uL NRBC Abs Auto 0.000 0.0-0.012 X10*3/uL Comprehensive [place]. Panel Fa st Reviewed date:10/19/2024 12:27:30 PM Interpretation: Performing Lab:[facility], [address] [place] [phone] Notes/Report: Sodium 137 135-145 mmol/L Potassium 3.5 [...] Panel Reviewed date:10/19/2024 12:13:11 PM Interpretation: Performing Lab:[facility], [address] [place] [phone] Notes/Report: Bilirubin Direct 0.1 0.0-0.5 mg/dL Lipid Panel Reviewed date:10/19/2024 12:13:50 PM Interpretation: Performing Lab:[facility], [address] [place] [phone] Notes/Report: Triglycerides 302 <150 mg/dL Desirable Triglyceride: [...] (Free>4and<10) Reviewed date:10/19/2024 12:17:51 PM Interpretation: Performing Lab:[address] [phone] Notes/Report: PSA,Total (Free>4and<10) 0.89 0.00-4.00 ng/mL A [...] Random Reviewed date:10/19/2024 12:16:57 PM Interpretation: Performing Lab:[address] [phone] Notes/Report: Creatinine Urine 42.80 Microalbumin Urine 1880.0 Verified by dilution Microalbum/Creatinine Ratio Ur 4392.5 <30 ug/mg cr Albumin/Creatinine Ratio Reference Ranges: Normal: < 30 ug/mg creatinine Microalbuminuria: 30 - 300 ug/mg creatinine Clinical Albuminuria: > 300 ug/mg creatinine Hemoglobin A1c Reviewed date:10/19/2024 12:17:43 PM Interpretation: Performing Lab:[address] [phone] Notes/Report: Hemoglobin A1c % 8.2 <6.0 % [...] average glucose, using the formula of the V6D-Zlzghqa Average Glucose study (ADAG), Diabetes Care, Vol.31,#8, May. 2007 UA ClnCatch+Micro w/rflx Cul t Reviewed date:10/19/2024 12:47:07 PM Interpretation: Performing Lab:[address] [phone] Notes/Report: Urine, Clean Catch Color Urine Yellow Appearance Urine Clear PH 6.5 5.0-9.0 Glucose Urine UA >=1000 Negative mg/dL Urine Blood Trace Negative Specific [place] - Urine 1.015 1.005-1.025 Urine Protein 300 (3+) Neg-Trace mg/dL Urine Ketones Negative Negative mg/dL Nitrite Urine Negative Negative Leukocyte Esterase Urine Negative Negative RBC Urine 0-2 0-2 /HPF WBC Urine 0-5 0-5 /HPF Squamous Epithelial Cell Urine 0-2 0-2 /HPF Bacteria Urine None Seen None Seen Hyaline Casts Urine 0-2 0-2 /LPF Glucose, finger stick Reviewed date:07/23/2024 08:10:10 AM Interpretation: Performing Lab: Notes/Report: Value 203 UA ClnCatch+Micro w/rflx Cul t Reviewed date:10/26/2024 01:25:07 PM Interpretation: Performing Lab:[facility], [address] [place] [phone] Notes/Report: Urine, Clean Catch Color Urine Yellow Appearance Urine Clear PH 5.5 5.0-9.0 Glucose Urine UA >=1000 Negative mg/dL Urine Blood Negative Negative Specific [place] - Urine 1.015 1.005-1.025 Urine Protein 300 (3+) Neg-Trace mg/dL Urine Ketones Negative Negative mg/dL Nitrite Urine Negative Negative Leukocyte Esterase Urine Negative Negative RBC Urine 0-2 0-2 /HPF WBC Urine 0-5 0-5 /HPF Squamous Epithelial Cell Urine 0-2 0-2 /HPF Bacteria Urine None Seen None Seen Hyaline Casts Urine 0-2 0-2 /LPF Glucose, finger stick Reviewed date:01/22/2025 08:23:03 AM Interpretation: Performing Lab: Notes/Report: Value 196 Hold Gold Reviewed date:04/12/2024 12:39:30 PM Interpretation: Performing Lab:[facility], [address] [place] [phone] Notes/Report: Lia Sena See Note Specimen held untested for 24 hours; Call to request Chemistry testing. US renal BI Reviewed date:01/24/2025 09:17:44 AM Interpretation:HOLLY 01/22 Performing Lab: Notes/Report: [address] [address] Ultrasound Report Signed Patient: Ciera Muniz MR#: [id number] : 1940 Acct:[id number] Age/Sex: 84 / M ADM Date: 01/17/25 Loc: HO.US Attending Dr: Jean-Paul Sosa MD Ordering Physician: Jean-Paul Sosa MD Date of Service: 01/17/25 Procedure(s): US renal BI Accession Number(s): [id number] cc: Juan Manuel Castorena MD; Jean-Paul Sosa MD EXAMINATION: US RETROPERITONEAL LIMITED (RENAL ONLY) CLINICAL INFORMATION: Proteinuria, hematuria, chronic kidney disease.. COMPARISON: None available. TECHNIQUE: Real-time imaging of the kidneys. FINDINGS: RIGHT KIDNEY: 11.8 x 5.7 x 5.9 cm (SAG x AP x TRV). The kidney is normal in size, contour, and echogenicity. Renal cortical thickness is normal. No calculi or suspicious focal parenchymal lesions. No hydronephrosis. There is a mid pole simple cyst measuring 0.8 cm. LEFT KIDNEY: 12.1 x 5.5 x 5.3 cm (SAG x AP x TRV). The kidney is normal in size, contour, and echogenicity. Renal cortical thickness is normal. No calculi or suspicious focal parenchymal lesions. No hydronephrosis. There is a 1.2 cm mid pole simple cyst laterally. Incidentally is diffusely increased hepatic echogenicity. There are 2 large right liver masses, the larger measuring 5.3 x 7.2 x 5.4 cm, and the smaller measuring 2.4 x 1.7 x 2.2 cm. These are of uncertain etiology. No prior imaging for comparison purposes. US/US renal BI IMPRESSION: 1. Aside from small cortical cysts bilaterally, normal bilateral kidneys. 2. Incidental note made of 2 right hepatic lobe liver masses, the larger measuring 5.3 x 7.2 x 5.4 cm. These are of uncertain etiology, and no prior imaging is available to compare. Recommend correlation with any known prior imaging at outside institutions. Otherwise, recommend further evaluation with contrast-enhanced CT of the abdomen and pelvis. Electronically signed by: Jarrett Stapleton MD 01/17/2025 03:50 PM EDT RP Dictated By: Jarrett Stapleton MD Signed By: <Electronically signed by Jarrett Stapleton MD in OV> 01/17/25 1550 DD/ 1501 TD/TT: 01/17/25 1512 Housing Installer: [address] [address] Ultrasound Report Signed Patient: Ciera Muniz MR#: [id number] : 1940 Acct:[id number] Age/Sex: 84 / M ADM Date: 01/17/25 Loc: HO.US Attending Dr: Jean-Paul Sosa MD Ordering Physician: Jean-Paul Sosa MD Date of Service: 01/17/25 Procedure(s): US eduard al BI Accession Number(s): [id number] cc: Juan Manuel Castorena MD; Jean-Paul Sosa MD EXAMINATION: US RETROPERITONEAL LIMITED (RENAL ONLY) CLINICAL INFORMATION: Proteinuria, hematur ia, chronic kidney disease.. COMPARISON: None available. TECHNIQUE: Real-time imaging of the kidneys. FINDINGS: RIGHT KIDNEY: 11.8 x 5.7 x 5.9 cm (SAG x AP x TRV). The kidney is normal in size, contour, and echogenicity. Renal cortical thickness is normal. No calculi o r suspicious focal parenchymal lesions. No hydronephrosis. Ther e is a mid pole simple cyst measuring 0.8 cm. LEFT KIDNEY: 12.1 x 5.5 x 5.3 cm (SAG x AP x TRV). The kidney is normal in size, contour, an d echogenicity. Renal cortical thickness is normal. No calculi or suspicious focal parenchymal lesions. No hydronephrosis. There is a 1.2 cm mi d pole simple cyst laterally. Incidentally is diffusely increased hepatic echogenicity. There are 2 large right liver masses, the larger measuring 5.3 x 7.2 x 5.4 cm, and the smaller measurin g 2.4 x 1.7 x 2.2 cm. These are of uncertain etiology. No prior imaging for comparison purposes. US/US renal BI IMPRESSION: 1. Aside from small cortical cysts bilaterally, normal bilateral kidneys. 2. Incidental note m zita of 2 right hepatic lobe liver masses, the larger measuring 5.3 x 7.2 x 5.4 cm. These are of uncertain etiology, and no prior imaging is available to compare. Recommend correlation with any known prior imaging at outside institutions. Otherwise, recommend further evaluation with contrast-enhanced CT of the abdomen and pelvis. Electronically david d by: Jarrett Stapleton MD 01/17/2025 03:50 PM EDT Dictated By: Jarrett Stapleton MD Signed By: <Electronically signed by Jarrett Stapleton MD in OV> 01/17/25 1550 DD/ 1501 TD/TT: 01/17/25 1512 Housing Installer: Reason For Referral Reason Elevated creatinine Diagnosis 1 Creatinine elevation (R79.89) Referral Organization Juan Manuel Castorena MD Referring Provider First Name Juan Manuel Referring Provider Last Name Raffaele Referring Provider Speciality Internal edicine Referred Provider Maria Rodrigues Referred Provider Specialty Nephrology General Notes Nancy Trivedi 0 10/26/2024 11:58:11 AM > info visitFarooq Annette 10/30/2024 02:06:50 PM > [facility] [address] [facility]/02/2024 02:24:25 PM > referral info mailed to patient Referral Priority Routine Referral Appointment Date 12/20/2024 Reason Pruritic rash Diagnosis 1 Pruritic rash (L28.2 ) Referral Organization Juan Manuel Castorena MD Referring Provider First Name Juan Manuel Referring Provider Last Name Raffaele Referring Provider Speciality Internal edicine Referred Provider [facility] Aristeo brown Referred Provider Specialty Dermatology General Notes Nancy Trivedi 0 10/26/2024 08:39:59 AM >patient wants [place] office info faxed, Nancy Trivedi 11/19/2024 07:33:49 AM > info mailed to patient Referral Priority Routine Referral Appointment Date 05/08/2025 Medications Medication SIG (Take, Route, Frequency, Duration) Notes Start Date End Date Status Losartan Potassium 100 MG TAKE 1 TABLET BY MOUTH EVERY DAY for 90 Active Omeprazole 20 MG TAKE 1 CAPSULE BY MOUTH IN THE MORNING 30 MINS BEFORE BREAKFAST 90 for 90 Active FreeStyle Lancets 0 used to test blood sugar daily invitro DX E11.9 once a day for 90 days 08/12/2016 Active Betamethasone Dipropionate Aug 0.05 % APPLY TO AFFECTED AREA EVERY DAY for 50 Active BD Pen Needle Micro U/F 32G X 6 MM DIRECTED UNDER SKIN DAILY 90 DAYS for 90 Active Atorvastatin Calcium 20 MG TAKE 1 TABLET BY MOUTH EVERY DAY for 90 Active Carvedilol 25 MG TAKE 1 TABLET BY MOUTH TWICE A DAY WITH FOOD for 90 Active Farxiga 5 MG TAKE 1 TABLET BY MOUTH EVERY DAY IN THE MORNING Active Glimepiride 1MG TAKE 1 TABLET WITH BREAKFAST OR FIRST MAIN MEAL OF THE DAY Orally Once a day for 90 Not-Taking metFORMIN HCl 500 MG TAKE 2 TABLETS BY MOUTH TWICE A DAY Active hydroCHLOROthiazide 25 MG TAKE 1 TABLET BY MOUTH EVERY DAY IN THE MORNING Active Paxlovid (300/100) 20 x 150 MG & 10 x 100MG as directed Orally 2 tabs nirm and 1 tab carola for 5 days 07/20/2022 Not-Taking Basaglar KwikPen 100 UNIT/ML 15 units Active guaiFENesin-Codeine 100-10 MG/5ML 10 mL as needed Orally every 6 hrs for 10 days 09/06/2022 Not-Taking ProAir HFA 90MCG INHALE 2 PUFFS EVERY 4 HOURS NEEDED Inhalation every 4 hrs Active Insulin Glargine 100 UNIT/ML as directed Subcutaneous 10 units per day 03/03/2023 Not-Taking amLODIPine Besylate 10 MG TAKE 1 TABLET BY MOUTH EVERY DAY for 90 Active FreeStyle Lite Test - use to test blood sugar DX:E11.9 In Vitro once a day for 30 days 04/17/2019 Active Immunizations Vaccine Route Administration Date Status Comme nts [...] Administer ed Flu Vaccine Unknown 07/15/2014 Pending Social History Tobacco Use: Social History Observation [...] ast year? No Points 0 Interpretation Negative Problems Problem Type SNOMED Code ICD Code Onset Dates Problem Status W/U Status Risk Notes Problem 800045426 Gastro-esophagea l reflux disease without esophagitis (K21.9) Active confirmed Problem 7703304 Arthritis (M19.90) Active confirmed Problem 554618031 Elevated LFTs (R79.89) Active confirm ed Problem 75161906 Essential hypert ension (I10) Active confirmed Problem 665036055 Mild intermitten t asthma without complication (J45.20) Active confirmed Problem 49421563 Type 2 diabetes mellitus without complication (E11.9) Active confirmed Problem 343466899 Low HDL (under 4 0) (E78.6) Active confirmed Problem 284310197 Esophageal dysmo tility (K22.4) Active confirmed Problem 18770886 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) Active confirmed Problem 75128172 Peptic ulcer (K27.9) Active confirmed Problem 112365825 Hypertriglycerid emia (E78.1) Active confirmed Problem 568988263 Pure hypercholesterolemia (E78.00) Active confirmed Problem 16711100 Proteinuria, unspecified type (R80.9) Active confirmed Problem 25907910 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 confirmed Problem 60877051 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) Active confirmed Vital Signs Blood pressure diastolic 70 mm Hg 01/22/2025 panda ght is down 4 pounds since 10-26-24 Height 69.25 in 01/22/2025 weight is down 4 pounds since 10-26-24 Blood pressure systolic 166 mm Hg 01/22/2025 weig ht is down 4 pounds since 10-26-24 Weight 190 lbs 01/22/2025 weight is down 4 pounds since 10-26-24 BMI 27.85 kg/m2 01/22/2025 weight is down 4 pounds since 10-26-24 Encounters Encounter Location Date Provider Diagnosis Juan Manuel Castorena MD [address] [place] [id number] 04/12/2024 Juan Manuel Castorena Type 2 diabetes laurel itus without complication E11.9 and Pure hypercholesterolemia E78.00 Juan Manuel Castorean MD [address] [place] [id number] 06/25/2024 Juan Manuel Castorena Encounter for immuni zation Z23 Juan Manuel Castorena MD [address] [place] [address] Drive [address] [place] [id number] 10/19/2024 Juan Manuel Castorena Essential hypertensi on I10 ; Type 2 diabetes mellitus without complication E11.9 ; Pure hypercholesterolemia E78.00 and Elevated LFTs R79.89 Juan Manuel Castorena MD [address] [place] [address] Drive [address] [place] [id number] 04/24/2024 Juan Manuel Castorena Type 2 diabetes laurel itus without complication E11.9 ; Pure hypercholesterolemia E78.00 ; Essential hypertension I10 ; Mild intermittent asthma without complication J45.20 and Gastro-esophageal reflux disease without esophagitis K21.9 Juan Manuel Castorena MD [address] [place] [address] Drive [address] [place] [id number] 07/23/2024 Juan Manuel Castorena Type 2 diabetes laurel itus without complication E11.9 and Essential hypertension I10 Juan Manuel Castorena MD [address] [place] [id number] 10/26/2024 Juan Manuel Castorena Microscopic hematuri a R31.29 ; Elevated serum creatinine R79.89 ; Pruritic rash L28.2 ; Cardiac murmur R01.1 and Type 2 diabetes mellitus without complication E11.9 Juan Manuel Castorena MD [address] [place] [id number] 01/22/2025 Juan Manuel Castorena Type 2 diabetes laurel itus without complication E11.9 ; Proteinuria, unspecified type R80.9 and Liver mass R16.0 Juan Manuel Castorena MD [address] [place] [id number] 11/06/2024 Juan Manuel Castorena MD [address] [place] [address] [id number] 11/16/2024 Juan Manuel Castorena MD [address] [place] [id number] 01/28/2025 Juan Manuel Castorena Liver mass R16.0 Assessments Encounter Date Diagnosis (ICD Code) Assessment Notes Treatment Notes Treatment Clinical Notes Section Notes 04/12/2024 Type 2 diabetes mellitus without complication (ICD-10 - E11.9) 04/12/2024 Pure hypercholesterolemia (ICD-10 - E78.00) 06/25/2024 Encounter for immunization (ICD-10 - Z23) 10/19/2024 Essential hypertensi on (ICD-10 - I10) 10/19/2024 Type 2 diabetes mellitus without complication (ICD-10 - E11.9) 04/24/2024 Type 2 diabetes mellitus without complication (ICD-10 - E11.9) a1c is doing a lot better, will continue current regiment and will continue to monitor 04/24/2024 Pure hypercholesterolemia (ICD-10 - E78.00) well controlled, will continue current regiment 07/23/2024 Type 2 diabetes mellitus without complication (ICD-10 - E11.9) 07/23/2024 Essential hypertensi on (ICD-10 - I10) will continue current rtegiment and will continue to monitor 10/26/2024 Microscopic hematuri a (ICD-10 - R31.29) [pending diagnostic testing 10/26/2024 Elevated serum creatinine (ICD-10 - R79.89) referral to nephrology 01/22/2025 Type 2 diabetes mellitus without complication (ICD-10 - E11.9) stable, will continue current regiment 01/22/2025 Proteinuria, unspecified type (ICD-10 - R80.9) discussed findings of Renal US and need for further diagnostic testing of liver 01/28/2025 Liver mass (ICD-10 - R16.0) 10/19/2024 Pure hypercholesterolemia (ICD-10 - E78.00) 04/24/2024 Essential hypertensi on (ICD-10 - I10) doing well, will contnue current regiment 10/26/2024 Pruritic rash (ICD-1 0 - L28.2) referral to [facility] [place] 01/22/2025 Liver mass (ICD-10 - R16.0) order faxed to [facility] [place] , pending diagnostic testing 10/19/2024 Elevated LFTs (ICD-1 0 - R79.89) 04/24/2024 Mild intermittent asthma without complication (ICD-10 - J45.20) stable, no issues, will continue current regiment 10/26/2024 Cardiac murmur (ICD- 10 - R01.1) pending diagnostic testing 04/24/2024 Gastro-esophageal reflux disease without esophagitis (ICD-10 - K21.9) doing well, will continue current regiment 10/26/2024 Type 2 diabetes mellitus without complication (ICD-10 - E11.9) not at goal, advised on diet, will contiue to monitor and will contnue current regiment Plan Of Treatment Pending Test Test Name Order Date CT ABD NO CONTRAST 01/22/2025 CT ABD W&WO CONTRAST 01/28/2025 XR GI SERIES 06/02/2021 ECHO 10/26/2024 US scrotum 10/21/2022 Next Appt Details Provider Name:Juan Manuel hernandezr, 04/02/2025 10:15:00 AM, [address] [place] [address], [address], [place], [place], [phone], Provider Name:Juan Manuel hernandezr, 04/18/2025 07:30:00 AM, [address] [place] [address], [address], [place], [place], [phone], Provider Name:Juan Manuel hernandezr, 05/03/2025 10:00:00 AM, [address], [address], [place], [phone], Provider Name:Juan Manuel Huffman lady, 10/25/2025 07:30:00 AM, [address], [address], [place], [phone], Provider Name:Juan Manuel Huffman lady, 11/01/2025 08:30:00 AM, [address], [address], [place], [phone], Insurance Providers Payer Name Payer Address Payer Phone Subscriber Number Group Number Insured Name Patient Relationship to Insured Coverage Start Date Coverage End Date MEDICARE NHIC [address] [place] [address] [id number] SUKHWINDERCIERA Machuca Self - patient is the insured [employer] [facility] [address] [place], [place] [id number] CIERA MUNIZ Self - patient is the insured Medical (General) History Medical History History ICD Code tribenzor is amlodipine,benicar and hctz refuses colonoscopy 2011, , 2013, 2014 (DON'T ASK AGAIN); 09/20/19 refused cologuard
== END ==
LOC: HO.CARD 08:14
PROVIDERS: PCP Internal Medicine; Visit Provider Internal Medicine
DX: R01.1 Cardiac murmur, unspecified (principal)
CPT/HCPCS: 93306

== ENCOUNTER → 2025-02-19 08:20 | Outpatient (BNV) | payer MEDICARE, SELFPAY | PROVIDERS: PCP Internal Medicine; Visit Provider Internal Medicine | DX: I35.8 Other nonrheumatic aortic valve disorders (principal); I35.0 Nonrheumatic aortic (valve) stenosis | CPT/HCPCS: 93306 ==

== ENCOUNTER 2025-03-08 11:51 | Outpatient (REF) | payer MEDICARE, SELFPAY ==
--- OUTSIDE RECORDS SUMMARY | 2025-03-08 11:54 | XMS_ITS ---
Author Organization Juan Manuel Castorena MD Address [address] [place] [phone] Care Team Providers Care Crystallizer Operator Name Role Phone Juan Manuel Castorena Primary Care Provider REASON FOR VISIT bun creatinine for ct scan Encounters Encounter Location Date Provider Diagnosis Juan Manuel Castorena MD [facility] [address] [place] [id number] 03/08/2025 Juan Manuel Castorena Encounter for preprocedural laboratory examination Z01.812 Assessments Encounter Date Diagnosis (ICD Code) Assessment Notes Treatment Notes Treatment Clinical Notes Section Notes 03/08/2025 Encounter for preprocedural laboratory examination (ICD-10 - Z01.812) Plan Of Treatment Pending Test Test Name Order Date Blood Urea Nitrogen 03/08/2025 Creatinine 03/08/2025 Next Appt Details Provider Name:Juan Manuel narayanan, 04/02/2025 10:15:00 AM, [address] [place] [address], [address], [phone], Provider Name:Juan Manuel narayanan, 04/18/2025 07:30:00 AM, [address] [place] [address], [address], [phone], Provider Name:Juan Manuel Huffman ier, 05/03/2025 10:00:00 AM, [address], [address], [place], [phone], Provider Name:Juan Manuel Huffman ier, 10/25/2025 07:30:00 AM, [address], [address], [place], [phone], Provider Name:Juan Manuel Huffman ier, 11/01/2025 08:30:00 AM, [address], [address], [place], [phone], Progress Notes * CIERA MUNIZ CDOB:1940 (84 yo M)Acc No.[id number]:03/08/2025 Progress Note Patient:?SUKHWINDER, CIREA C Provider:?Juan Manuel Castorena MD :1940???Age:84 Y???Sex:Male Junior e:03/08/2025 Address:[address] [place], [place] [phone] Subjective: * Chief Complaints: * ???1. Bun creatinine for ct scan. * Medical History:? Objective: * Vitals:? Assessment: * Assessment: 1.?Encounter for preprocedur al laboratory examination - Z01.812??? Plan: * Treatment: * Procedure Codes:?68058 VENIP UNCT, ROUTINE* * * The named appointment provid er may or may not be the originator of this progress note, and it is not deemed complete until electronically signed by the appointment provider. Sign off status: Pending * Provider:?Juan Manuel Castorena MD Date:?0 03/08/2025 Generated for Cory kwan/[place]/eTdelanosmitting on:?03/08/2025 11:53 AM EDT
[2025-03-08 12:22] LABS: Blood Urea Nitrogen 32 mg/dL (9-16); Estimated Glomerular Filt Rate 31
== END 2025-03-08 11:52 | disposition home or self-care (01) ==
LOC: HO.LNP 11:51
PROVIDERS: Visit Provider Internal Medicine
DX: Z01.812 Encounter for preprocedural laboratory examination (principal)
CPT/HCPCS: 82565; 84520

== ENCOUNTER 2025-03-19 15:05 | Outpatient (REF) | payer MEDICARE, SELFPAY ==
--- NOTE | ~2025-03-19 | CT_ITS ---
CLINICAL HISTORY: LIVER MASS CT abdomen without IV contrast Comparison: None Findings: Minimal subsegmental dependent atelectasis. No dependent layering pleural effusions. The heart is not enlarged. Coronary artery calcifications: Moderate. Borderline hepatomegaly. Hypoattenuating lesion segment 6 of the liver measures 8.5 cm in transverse diameter 8.4 cm in AP diameter and 7.3 cm in height. This is solid. This is extending to the capsule of the liver inferiorly. Contrast-enhanced MRI is the imaging modality of choice to further characterize this indeterminate mass. Equivocal cholelithiasis. Ultrasound would be confirmatory. No pancreatic calcifications. No splenomegaly. Normal adrenal glands. No nephrolithiasis. Normal caliber abdominal aorta. Imaged portion of the bowel unremarkable. No omental or peritoneal disease. No vertebral body compression fractures or spondylolisthesis. No bony destructive lesions. Impression: 1. Indeterminate solid hepatic mass. Multiphase contrast-enhanced MRI of the abdomen is the imaging modality of choice. 2. Equivocal cholelithiasis. 3. Calcified coronary artery disease is moderate This document has been electronically signed by: Tim Anand MD on 03/20/2025 12:26:19
--- OUTSIDE RECORDS SUMMARY | 2025-03-19 16:44 | XMS_ITS ---
Author Organization Juan Manuel Castorena MD Address [address] [place] [phone] Care Team Providers Care Frame Hand Name Role Phone Juan Manuel Castorena Primary Care Provider [phone] Allergies No Known Allergies Reason For Referral Reason Referral for Diabeti c senior data mining analyst Diagnosis 1 Type 2 diabetes laurel itus without complication (E11.9) Referral Organization Juan Manuel Castorena MD Referring Provider First Name Juan Manuel Referring Provider Last Name Raffaele Referring Provider Speciality Internal M edicine Referred Provider Kristen Escobar Referred Provider Specialty Nutrition General Notes Nancy Trivedi 0 03/15/2025 11:21:22 AM > info faxed Referral Priority Routine REASON FOR VISIT Discuss future testing, Accompanied [...] SKIN DAILY 90 DAYS for 90 Active Farxiga 5 MG TAKE [...] kg/m2 03/15/2025 weight is down 3 pounds [facility] e 01-22-25 Encounters Encounter Location Date Provider Diagnosis Juan Manuel Castorena MD [address] [place] [address] [address] [place], [place] [phone] 03/15/2025 Juan Manuel Castorena Liver mass R16.0 and Type 2 diabetes mellitus without complication E11.9 Assessments Encounter Date Diagnosis (ICD Code) Assessment Notes Treatment Notes Treatment Clinical Notes Section Notes 03/15/2025 Liver mass (ICD-10 - R16.0) cancel the contrast for the scan next week and do ct abdomen without contrast/ Ct ordder faxed to [facility] [place] , also they were called with this info 03/15/2025 Type 2 diabetes mellitus without complication (ICD-10 - E11.9) referral to diabetic senior data mining analyst Plan Of Treatment Treatment Notes Assessment Notes Liver mass cancel the contrast for the scan next week and do ct abdomen without contrast/ Ct ordder faxed to [facility] [place] , also they were called with this info Type 2 diabetes mellitus wit hout complication referral to diabetic senior data mining analyst Pending Test Test Name Order Date CT ABD NO CONTRAST 03/15/2025 Referrals Referral Date Details 03/15/2025 03/15/2025, Referral for Diabetic senior data mining analyst, Kristen Escobar Next Appt Details Provider Name:Juan Manuel narayanan, 04/02/2025 10:15:00 AM, [address] [place] [address], [address] [place] [address], [phone], Provider Name:Juan Manuel hernandezr, 04/18/2025 07:30:00 AM, [address] [place] [address], [address] [place] [address], [phone], Provider Name:Juan Manuel hernandezr, 05/03/2025 10:00:00 AM, [address] [place] [address], [address] [place] [address], [phone], Provider Name:Juan Manuel hernandezr, 10/25/2025 07:30:00 AM, [address] [place] [address], [address] [place] [address], [phone], Provider Name:Juan Manuel hernandezr, 11/01/2025 08:30:00 AM, [address] [place] [address], [address] [place] [address], [phone], Progress Notes * CIERA MUNIZ CDOB:1940 (84 yo M)Acc No.[id number]:03/15/2025 Progress Notes Patient:?CIERA MUNIZ C Provider:?Juan Manuel Castorena MD :1940???Age:84 Y???Sex:Male Junior e:03/15/2025 Address:[address] [place], [place] [phone] Subjective: * Chief Complaints: * ???Discuss future testingAcc ompanied by * HPI: ???Symptom(s):?patient is a 84 yo male here for visit. * ROS:?General/Constitutional:?Denies?Chills.?Denies?Fatigue.?Denies?Fever.?Denies?Headache.?ENT:?Denies?Sore throat.?Respiratory:?Denies?Cough.?Denies?Shortness of breath at rest.?Denies?Shortness of breath with [...] gies Verified] Objective: * Vitals:?Ht: 69.25, Wt: 187, BMI:27.41, BP:136/60, Wt-k.82. weight is down 3 pounds since 01-22-25. * Examination: ???General Examination: ?GENERAL APPEARANCE:?alert, well hydrated, in no distress.?SKIN:?good turgor.?HEART:?regular rate and rhythm, no murmurs, rubs, gallops.?LUNGS:?no wheezes, rales, rhonchi, good air movement, clear to auscultation bilaterally.?ABDOMEN:?soft, nontender, nondistended.? Assessment: * Assessment: 1.?Liver mass - R16.0 (Prima ry)???2.?Type 2 diabetes mellitus without complication - E11.9??? Plan: * Treatment: 2.?Type 2 diabetes mellitus without complication? Notes: referral to diabetic senior data mining analyst? Referral To:Kristen Escobar??Nutrition ?Reason:Referral for Diabetic senior data mining analyst * Procedure Codes:? * * Sign off status: Completed true * Provider:?Juan Manuel Castorena MD Date:?0 03/15/2025 Generated for Cory kwan/[place]/Perezitting on:?03/19/2025 04:44 PM EDT History and Physical Notes * [...] Manuel Castorena Zoraida Refer ral for Diabetic senior data mining analyst
== END 2025-03-19 15:06 | disposition home or self-care (01) ==
LOC: HO.CT 15:05
PROVIDERS: PCP Internal Medicine; Visit Provider Internal Medicine
DX: R16.0 Hepatomegaly, not elsewhere classified (principal)
CPT/HCPCS: 74150

== ENCOUNTER 2025-04-03 08:08 | Outpatient (AMB) | payer MEDICARE, SELFPAY ==
--- OUTSIDE RECORDS SUMMARY | 2025-03-15 06:30 | XMS_ITS ---
Author Organization Juan Manuel Castorena MD Address [address] [place] [phone] Care Team Providers Care Pot Builder Name Role Phone Juan Manuel Castorena Primary Care Provider [phone] Allergies No Known Allergies Reason For Referral Reason Referral for Diabeti c ride assembly supervisor Diagnosis 1 Type 2 diabetes laurel itus without complication (E11.9) Referral Organization Juan Manuel Castorena MD Referring Provider First Name Juan Manuel Referring Provider Last Name Raffaele Referring Provider Speciality Internal M edicine Referred Provider Kristen Escobar Referred Provider Specialty Nutrition General Notes Nancy Trivedi 0 03/15/2025 11:21:22 AM > info faxFarooq arzate Annette 03/22/2025 10:58:28 AM >was told to refFarooq medrano Annette 03/29/2025 03:09:52 PM >was told patient is aware of appt Referral Priority Routine Referral Appointment Date 04/03/2025 REASON FOR VISIT Discuss future testing, Accompanied by Medications Medication SIG (Take, Route, Frequency, Duration) Notes Start Date End Date Status Glimepiride 1MG TAKE 1 TABLET WITH BREAKFAST OR FIRST MAIN MEAL OF THE DAY Orally Once a day for 90 Not-Taking Insulin Glargine 100 UNIT/ML as directed Subcutaneous 10 units per day 03/03/2023 Not-Taking Albuterol Sulfate HFA 108 (90 Base) MCG/ACT 1 puff as needed Inhalation every 4 hrs for 30 days 02/25/2025 Active Paxlovid (300/100) 20 x 150 MG & 10 x 100MG as directed Orally 2 tabs nirm and 1 tab carola for 5 days 07/20/2022 Not-Taking guaiFENesin-Codeine 100-10 MG/5ML 10 mL as needed Orally every 6 hrs for 10 days 09/06/2022 Not-Taking Losartan Potassium 100 MG TAKE 1 TABLET BY MOUTH EVERY DAY for 90 Active Omeprazole 20 MG TAKE 1 CAPSULE BY MOUTH IN THE MORNING 30 MINS BEFORE BREAKFAST 90 for 90 Active BD Pen Needle Micro U/F 32G X 6 MM DIRECTED UNDER SKIN DAILY 90 DAYS for Active Farxiga 5 MG TAKE 1 TABLET BY MOUTH EVERY DAY IN THE MORNING Active metFORMIN HCl 500 MG TAKE 2 TABLETS BY MOUTH TWICE A DAY Active Basaglar KwikPen 100 UNIT/ML 15 units Active amLODIPine Besylate 10 MG TAKE 1 TABLET BY MOUTH EVERY DAY for 90 Active Carvedilol 25 MG TAKE 1 TABLET BY MOUTH TWICE A DAY WITH FOOD for 90 Active Betamethasone Dipropionate Aug 0.05 % APPLY TO AFFECTED AREA EVERY DAY for 50 Active Atorvastatin Calcium 20 MG TAKE 1 TABLET BY MOUTH EVERY DAY for 90 Active FreeStyle Lite Test - use to test blood sugar DX:E11.9 In Vitro once a day for 30 days 04/17/2019 Active FreeStyle Lancets 0 used to test blood sugar daily invitro DX E11.9 once a day for 90 days 08/12/2016 Active ProAir HFA 90MCG INHALE 2 PUFFS EVERY 4 HOURS NEEDED Inhalation every 4 hrs Active hydroCHLOROthiazide 25 MG TAKE 1 TABLET BY MOUTH EVERY DAY IN THE MORNING Active Vital Signs Blood pressure systolic 136 mm Hg 03/15/20 25 Blood pressure diastolic 60 mm Hg 025 Height 69.25 in 03/15/2025 Weight 187 lbs 03/15/2025 BMI 27.41 kg/m2 03/15/2025 weight is down 3 pounds [facility] e 01-22-25 Encounters Encounter Location Date Provider Diagnosis Juan Manuel Castorena MD [address] [place] [address] [phone] 03/15/2025 Juan Manuel Castorena Liver mass R16.0 and Type 2 diabetes mellitus without complication E11.9 Assessments Encounter Date Diagnosis (ICD Code) Assessment Notes Treatment Notes Treatment Clinical Notes Section Notes 03/15/2025 Liver mass (ICD-10 - R16.0) cancel the contrast for the scan next week and do ct abdomen without contrast/ Ct [place]der [place] [facility] , also they were called with this info 03/15/2025 Type 2 diabetes mellitus without complication (ICD-10 - E11.9) referral to diabetic ride assembly supervisor Plan Of Treatment Treatment Notes Assessment Notes Liver mass cancel the contrast for the scan next week and do ct abdomen without contrast/ Ct ordder fax[place] [facility] [place] [facility] [place] , also they were called with this info Type 2 diabetes mellitus wit hout complication referral to diabetic ride assembly supervisor Pending Test Test Name Order Date CT ABD NO CONTRAST 03/15/2025 Referrals Referral Date Details 03/15/2025 03/15/2025, Referral for Diabetic ride assembly supervisor, Kristen Escobar Next Appt Details Provider Name:Juan Manuel hernandezr, 04/15/2025 09:15:00 AM, [address] [place] [address], [address] [place] [address], [phone], Provider Name:Juan Manuel Huffman ier, 04/18/2025 07:30:00 AM, [address] [place] [address], [address] [place] [address], [phone], Provider Name:Juan Manuel Huffman ier, 05/03/2025 10:00:00 AM, [address] [place] [address], [address] [place] [address], [phone], Provider Name:Juan Manuel Huffman ier, 10/25/2025 07:30:00 AM, [address] [place] [address], [address], [phone], Provider Name:Juan Manuel Huffman ier, 11/01/2025 08:30:00 AM, [address] [place] [address], [address], [phone], Progress Notes * CIERA MUNIZ CDOB:1940 (84 yo M)Acc No.[id number]:03/15/2025 Progress Notes Patient: CIERA BEAULIEU Provider: Julio Castorena MD :1940 A ge:84 Y S ex:Male Date:03/15/2025 Address:[address] [place] [address] Subjective: * Chief Complaints: * D iscuss future testingAccompanied by * HPI: S ymptom(s): patient is a 84 yo male here for visit. * ROS: G eneral/Constitutional: Denies C hills. D enies F atigue. D enies F ever. D enies H eadache. E NT: Denies S ore throat. R espiratory: Denies C ough. D enies S hortness of breath at rest. D enies S hortness of breath with exertion. G astrointestinal: Denies D iarrhea. D enies N ausea. * Medical History: * Surgical History: * Hospitalization/Major Diagno stic Procedure: * Medications: T akingFreeStyle Lancets 0 Miscellaneous used to test blood sugar daily invitro DX E11.9 once a day FreeStyle Lite Test - Strip use to test blood sugar DX:E11.9 In Vitro once a day ProAir HFA 90MCG Aerosol Solution INHALE 2 PUFFS EVERY 4 HOURS NEEDED Inhalation every 4 hrs hydroCHLOROthiazide 25 MG Tablet TAKE 1 TABLET BY MOUTH EVERY DAY IN THE MORNING Carvedilol 25 MG Tablet TAKE 1 TABLET BY MOUTH TWICE A DAY WITH FOOD Atorvastatin Calcium 20 MG Tablet TAKE 1 TABLET BY MOUTH EVERY DAY Betamethasone Dipropionate Aug 0.05 % Cream APPLY TO AFFECTED AREA EVERY DAY amLODIPine Besylate 10 MG Tablet TAKE 1 TABLET BY MOUTH EVERY DAY Basaglar KwikPen 100 UNIT/ML Solution Pen-injector 15 units metFORMIN HCl 500 MG Tablet TAKE 2 TABLETS BY MOUTH TWICE A DAY Farxiga 5 MG Tablet TAKE 1 TABLET BY MOUTH EVERY DAY IN THE MORNING BD Pen Needle Micro U/F 32G X 6 MM Miscellaneous DIRECTED UNDER SKIN DAILY 90 DAYS Omeprazole 20 MG Capsule Delayed Release TAKE 1 CAPSULE BY MOUTH IN THE MORNING 30 MINS BEFORE BREAKFAST 90 Losartan Potassium 100 MG Tablet TAKE 1 TABLET BY MOUTH EVERY DAY Albuterol Sulfate HFA 108 (90 Base) MCG/ACT Aerosol Solution 1 puff as needed Inhalation every 4 hrs Taking FreeStyle Lancets 0 Miscellaneous used to test blood sugar daily invitro DX E11.9 once a day Taking FreeStyle Lite Test - Strip use to test blood sugar DX:E11.9 In Vitro once a day Taking ProAir HFA 90MCG Aerosol Solution INHALE 2 PUFFS EVERY 4 HOURS NEEDED Inhalation every 4 hrs Taking hydroCHLOROthiazide 25 MG Tablet TAKE 1 TABLET BY MOUTH EVERY DAY IN THE MORNING Taking Carvedilol 25 MG Tablet TAKE 1 TABLET BY MOUTH TWICE A DAY WITH FOOD Taking Atorvastatin Calcium 20 MG Tablet TAKE 1 TABLET BY MOUTH EVERY DAY Taking Betamethasone Dipropionate Aug 0.05 % Cream APPLY TO AFFECTED AREA EVERY DAY Taking amLODIPine Besylate 10 MG Tablet TAKE 1 TABLET BY MOUTH EVERY DAY Taking Basaglar KwikPen 100 UNIT/ML Solution Pen-injector 15 units Taking metFORMIN HCl 500 MG Tablet TAKE 2 TABLETS BY MOUTH TWICE A DAY Taking Farxiga 5 MG Tablet TAKE 1 TABLET BY MOUTH EVERY DAY IN THE MORNING Taking BD Pen Needle Micro U/F 32G X 6 MM Miscellaneous DIRECTED UNDER SKIN DAILY 90 DAYS Taking Omeprazole 20 MG Capsule Delayed Release TAKE 1 CAPSULE BY MOUTH IN THE MORNING 30 MINS BEFORE BREAKFAST 90 Taking Losartan Potassium 100 MG Tablet TAKE 1 TABLET BY MOUTH EVERY DAY Taking Albuterol Sulfate HFA 108 (90 Base) MCG/ACT Aerosol Solution 1 puff as needed Inhalation every 4 hrs Not-Taking/PRNInsulin Glargine 100 UNIT/ML Solution Pen-injector as [...] reviewed and reconciled with the patient * Allergies: N .K.D.A.yes[Allergies Verified] Objective: * Vitals: H t: 69.25, Wt: 187, BMI:27.41, BP:136/60, Wt-k.82. weight is down 3 pounds since 01-22-25. * Examination: G eneral Examination: GENERAL APPEARANCE: a lert, well hydrated, in no distress.? SKIN: g ood turgor. HEART: r egular rate and rhythm, no murmurs, rubs, gallops.? LUNGS: n o wheezes, rales, rhonchi, good air movement, clear to auscultation bilaterally. ABDOMEN: s oft, nontender, nondistended. ? Assessment: * Assessment: 1. L iver mass - R16.0 (Primary) 2 . T ype 2 diabetes mellitus without complication - E11.9 Plan: * Treatment: 2. T ype 2 diabetes mellitus without complication Notes: referral to diabetic ride assembly supervisor Referral To:Kristen Escobar Nutrition Reason:Referral for Diabetic ride assembly supervisor * Procedure Codes: * * Sign off status: Completed true * Provider: Julio Castorena MD Date: 0 03/15/2025 Generated for Cory kwan/[place]/eTdelanosmitting on: 0 04/03/2025 08:21 AM EDT History and Physical Notes * HPI (History of Present Illness) Category Sub-Category Detail Notes Category Not es Symptom(s) patient is a 84 yo male here for visit Examination Category Sub-Category Detail Notes Category Not es General Examination GENERAL APPEARANCE: alert, w ell hydrated, in no distress HEART: regular rate and rhy thm, no murmurs, rubs, gallops LUNGS: no wheezes, rales, r honchi, good air movement, clear to auscultation bilaterally ABDOMEN: soft, nontender, non distended SKIN: good turgor Consultation Request Notes Referral Date Referring Provider Referred Provider Not es 03/15/2025 Juan Manuel Castorena Zoraida Refer ral for Diabetic ride assembly supervisor
[2025-04-03 08:36] VITALS: BMI 26.4
--- NOTE | 2025-04-03 08:36 | A.OFFVIS_ITS ---
VS Expanded 04/03/25 08:36 Height 5 ft 10 in Weight 184 lb 1.376 oz BMI 26.4 Intake Visit Reasons: T2DM w/o complications Medication List - Last Reconciled 04/03/[address], LDN amlodipine 10 mg PO DAILY atorvastatin (Lipitor) 20 mg PO DAILY carvedilol 25 mg PO BID dapagliflozin propanediol (Farxiga) 5 mg PO DAILY hydrochlorothiazide 25 mg PO DAILY insulin glargine (Basaglar KwikPen U-100 Insulin) 15 units subcut QAM losartan 100 mg PO DAILY metformin 1,000 mg PO BID omeprazole 20 mg PO DAILY Nutrition Presentation Details: Pt presents for MNT for T2DM Pt presents with during this appointment. Pt reports working on reducing snacks at night time and choosing low fat food options Food frequency: fried foods: 0-2 x/wk fruits : 3-4/d fish 3x/wk cookies/pastries similar: working on reduction Physical activity: ADL etoh/smoking:denies Pt and have questions regarding Na intake Pt reports having a glucometer however seldom monitors BG BS Monitoring Most Recent Diabetes Results: Microalb/Creat Ratio, (<30) 4392.5 ug/mg cr H 10/19/24 Cholesterol, (<200) 191 mg/dL 10/19/24 HDL Cholesterol, (>40) 32 mg/dL L 10/19/24 Triglycerides, (<150) 302 mg/dL H 10/19/24 Creatinine, (0.5-1.4) 2.03 mg/dL H 03/08/25 BUN, (9-16) 32 mg/dL H 03/08/25 Sodium, (135-145) 137 mmol/L 10/19/24 Potassium, (3.3-5.1) 3.5 mmol/L 10/19/24 Chloride, (96-108) 101 mmol/L 10/19/24 Carbon Dioxide, (22-29) 27 mmol/L 10/19/24 Calcium, (8.4-10.2) 9.1 mg/dL 10/19/24 AST, (5-37) 31 U/L 10/19/24 ALT, (0-40) 12 U/L 10/19/24 Total Protein, (6.5-8.0) 6.9 g/dL 10/19/24 Albumin, (3.5-5.0) 3.6 g/dL 10/19/24 OLH-Wdikspp-Ju.Nadir Equation Height: 5 ft 10 in Weight: 184 lb Resting Metabolic Rate: 1536.75 Calculated Activity Level: Mild Activity Calories Needed to Maintain Weight: 2113.03 Diagnosis Nutrition problem #1: food nutri know defi As related to (etiology) #1: diagnosis (T2DM/elevated Tg/) As evidenced by (sign/symptom) #1: knowledge deficit of diet Monitoring/Goals Nutrition problem monitoring: level of knowledge/skill and glucose, fasting Learning/Education Readiness to learn: good Educational materials provided: Yes (Healthy plate Meal planning, . low sodium food concepts ) Assessment & Plan Assessment & Plan (1) T2DM (type 2 diabetes mellitus): Code(s): E11.9 - Type 2 diabetes mellitus without complications Category: Medical Plan: Wt: 84 Kg ( 04/10 ) Est kcal needs as per MSJ: 2100 (40% carb, 30% protein/fat) Est fluid needs as per 25-30 ml/d: 2500 Est prot per day as per 1-1.2 g/kg bw: 80-100 Recommend fiber intake : 8-10 g per day and gradually increase to 25-28 g per day for women and 35-38 g for men or as tolerated Recommend sodium intake per day : less than 7820-3716 mg Educated patient on: ( R = reviewed V = verbalizes understanding N/R = needs review N/A = not applicable * Food sources of carbohydrate, adequate serving sizes and its role in various health conditions: R V N/R * Differences between complex carbohydrates a simple carbohydrates, role of fiber in diet: R * Lean protein sources of foods: R * Differences between types of fats and role in diet (mono on saturated fat fatty acids, saturated fatty acids, trans fats): R V N/R * Food sources of sodium in salt and healthy modifications for heart health in kidney health: R * Vitamins and minerals: R V N/R * Healthy plate method concept: R * Physical activity: Benefits a precaution: R V N/R * Hypoglycemia protocol (rule of 15): R V N/R * Dietary prevention of Hyperglycemia: R , encouraged monitoring blood sugar level to assess current BG control Patient Instructions: Choose a serving of fruit and low sodium protein source as a bedtime snack follow healthy plate method at dinner with a serving of 2% milk resume monitoring blood sugar in the fasting state Coding Level of Care Code Nutr Indiv Intake (52960) Diagnoses T2DM (type 2 diabetes mellitus) E11.9 Time Spent (min) 30
[2025-04-03 18:45] VITALS: BMI 26.4
== END 2025-04-03 09:22 | disposition home or self-care (01) ==
LOC: HO.ENCR 08:09
PROVIDERS: PCP Internal Medicine; Visit Provider Dietitian, Registered
DX: E11.9 Type 2 diabetes mellitus without complications (principal)

== ENCOUNTER → 2025-04-03 08:08 | Outpatient (BNVA) | payer MEDICARE, SELFPAY | PROVIDERS: PCP Internal Medicine; Visit Provider Dietitian, Registered | DX: E11.9 Type 2 diabetes mellitus without complications (principal); Z79.4 Long term (current) use of insulin; Z79.84 Long term (current) use of oral hypoglycemic drugs | CPT/HCPCS: 97802 ==

== ENCOUNTER 2025-04-04 15:41 | Outpatient (REF) | payer MEDICARE, SELFPAY ==
--- OUTSIDE RECORDS SUMMARY | 2025-03-15 06:30 | XMS_ITS ---
Author Organization Juan Manuel Castorena MD Address [address] [place] [phone] Care Team Providers Care Media/Instructional Designer Name Role Phone Juan Manuel Castorena Primary Care Provider Allergies No Known Allergies Reason For Referral Reason Referral for Diabeti c counter supply worker Diagnosis 1 Type 2 diabetes laurel itus [...] kg/m2 03/15/2025 weight is down 3 pounds [facility] e 01-22-25 Encounters Encounter Location Date Provider Diagnosis Juan Manuel Castorena MD [address] [place] [address] [phone] 03/15/2025 Juan Manuel Castorena Liver mass R16.0 and Type 2 diabetes mellitus without complication E11.9 Assessments Encounter Date Diagnosis (ICD Code) Assessment Notes Treatment Notes Treatment Clinical Notes Section Notes 03/15/2025 Liver mass (ICD-10 - R16.0) cancel the contrast for the scan next week and do ct abdomen without contrast/ Ct ordder faxed to [facility] [place] [facility] [place] , also they were called with this info 03/15/2025 Type 2 diabetes mellitus without complication (ICD-10 - E11.9) referral to diabetic counter supply worker Plan Of Treatment Treatment Notes Assessment Notes Liver mass cancel the contrast for the scan next week and do ct abdomen without contrast/ Ct ordder faxed to [facility] [place] , also they were called with this info Type 2 diabetes mellitus wit hout complication referral to diabetic counter supply worker Pending Test Test Name Order Date CT ABD NO CONTRAST 03/15/2025 Referrals Referral Date Details 03/15/2025 03/15/2025, Referral for Diabetic counter supply worker, Kristen Escobar Next Appt Details Provider Name:Juan Manuel hernandezr, 04/15/2025 09:15:00 AM, [address] [place] [address], [address] [place] [address], [phone], Provider Name:Juan Manuel Huffman ier, 04/18/2025 07:30:00 AM, [address] [place] [address], [address] [place] [address], [phone], Provider Name:Juan Manuel Huffman ier, 05/03/2025 10:00:00 AM, [address] [place] [address], [address] [place] [address], [phone], Provider Name:Juan Manuel Huffman ier, 10/25/2025 07:30:00 AM, [address] [place] [address], [address], [phone], Provider Name:Juan Manuel Huffman ier, 11/01/2025 08:30:00 AM, [address] [place] [address], [address], [phone], Progress Notes * CIERA MUNIZ CDOB:1940 (84 yo M)Acc No.[id number]:03/15/2025 Progress Notes Patient: CIERA BEAULIEU Provider: Julio Castorena MD :1940 A ge:84 Y S ex:Male Date:03/15/2025 Address:[address] [place] [address] Subjective: * Chief Complaints: * D iscuss [...] mellitus without complication Notes: referral to diabetic counter supply worker Referral To:Kristen Escobar Nutrition Reason:Referral for Diabetic counter supply worker * Procedure Codes: * * Sign off status: Completed true * Provider: Julio Castorena MD Date: 0 03/15/2025 Generated for Cory kwan/[place]/eTdelanosmitting on: 0 04/04/2025 04:50 PM EDT History and Physical Notes * [...] Manuel Castorena Zoraida Refer ral for Diabetic counter supply worker
--- NOTE | ~2025-04-04 | MR_ITS ---
CLINICAL HISTORY: lever lesion MR abdomen with and without gadolinium Comparison: CT/SR - CT ABDOMEN WO IV CON - 03/19/25 15:59 EDT Findings: No significant fat or iron deposition within the liver. The liver is enlarged with a craniocaudal height of 19.4 cm with evidence of lobar redistribution. There is a mass centered in segment 5 of the right hepatic lobe measuring 7.7 x 5.4 x 6.6 cm. This lesion demonstrates heterogeneous T2 signal likely with an area of central necrosis. Postcontrast imaging demonstrates peripheral enhancement which fills in on delayed phase imaging. 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 Portal vein is patent. Tiny cyst in the left hepatic lobe measuring 5 mm image 15 series 5. Gallbladder is decompressed. No biliary ductal dilation. Preserved T1 parenchymal signal throughout the pancreas without ductal dilation or inflammation. The spleen is nonenlarged. No ascites or significant portosystemic collateralization. The bowel appears nondilated. Descending and sigmoid diverticulosis. Please note this MR was not optimized to evaluate the gastrointestinal tract. Kidneys demonstrate no hydronephrosis or enhancing lesions. No adrenal nodules. There are a few mildly enlarged periportal lymph nodes, nonspecific. Lung bases are unremarkable. No aggressive or destructive osseous lesions. IMPRESSION: Morphologic changes of chronic liver disease. There is an invasive mass centered within segment five. Tumor thrombus distends an adjacent branch of the right portal vein. Findings appear most consistent with malignancy, metastatic disease versus primary hepatic malignancy. Tissue sampling is recommended. Otherwise, no acute findings within the abdomen or lower chest. This document has been electronically signed by: Clarita Priest MD on 04/06/2025 08:56:48
[2025-04-04] MEDS: gadobutroL 10 ML VIAL IVPUSH (16:40)
== END 2025-04-04 15:42 | disposition home or self-care (01) ==
LOC: HO.MRI 15:41
PROVIDERS: PCP Internal Medicine; Visit Provider Internal Medicine
DX: K76.9 Liver disease, unspecified (principal)
CPT/HCPCS: 74183; A9585

== ENCOUNTER → 2025-04-04 15:55 | Outpatient (BNV) | payer MEDICARE, SELFPAY | PROVIDERS: PCP Internal Medicine; Visit Provider Radiology Diagnostic Radiology | DX: R93.2 Abnormal findings on diagnostic imaging of liver and biliary tract (principal) | CPT/HCPCS: 74183 ==

== ENCOUNTER 2025-04-10 08:11 | Outpatient (REF) | payer MEDICARE, SELFPAY ==
--- OUTSIDE RECORDS SUMMARY | 2025-04-08 08:45 | XMS_ITS ---
Author Organization Juan Manuel Castorena MD Address [address] [place] [phone] Care Team Providers Care Double End Trimmer Name Role Phone Juan Manuel Castorena Primary Care Provider Allergies No Known Allergies REASON FOR VISIT must see / CT abd/MRI/ DISCUSS SEEING CERTIFIED TECHNICIAN, Accompanied by Medications Medication SIG (Take, Route, Frequency, Duration) Notes Start Date End Date Status Insulin Glargine 100 UNIT/ML as directed Subcutaneous 10 units per day 03/03/2023 Not-Taking Albuterol Sulfate HFA 108 (90 Base) MCG/ACT 1 puff as needed Inhalation every 4 hrs for 30 days 02/25/2025 Active Glimepiride 1MG TAKE 1 TABLET WITH BREAKFAST OR FIRST MAIN MEAL OF THE DAY Orally Once a day for 90 Not-Taking Paxlovid (300/100) 20 x 150 MG & [...] TABLETS BY MOUTH TWICE A DAY Active Atorvastatin Calcium 20 MG TAKE 1 TABLET BY MOUTH EVERY DAY for 90 Active Carvedilol 25 MG TAKE 1 TABLET BY MOUTH TWICE A DAY WITH FOOD for 90 Active Basaglar KwikPen 100 UNIT/ML 15 units Active amLODIPine Besylate 10 MG TAKE 1 TABLET BY MOUTH EVERY DAY for 90 Active Betamethasone Dipropionate Aug 0.05 % APPLY TO AFFECTED AREA EVERY DAY for 50 Active hydroCHLOROthiazide 25 MG TAKE 1 TABLET BY MOUTH EVERY DAY IN THE MORNING Active ProAir HFA 90MCG INHALE 2 PUFFS EVERY 4 HOURS NEEDED Inhalation every 4 hrs Active FreeStyle Lite Test - use to test blood sugar DX:E11.9 In Vitro once a day for 30 days 04/17/2019 Active FreeStyle Lancets 0 used to test blood sugar daily invitro DX E11.9 once a day for 90 days 08/12/2016 Active Vital Signs Blood pressure systolic 164 mm Hg 04/08/20 25 Blood pressure diastolic 68 mm Hg 025 Height 69.25 in 04/08/2025 Weight 186 lbs 04/08/2025 BMI 27.27 kg/m2 04/08/2025 Encounters Encounter Location Date Provider Diagnosis Juan Manuel Castorena MD [address] [place] [address] [place] [phone] 04/08/2025 Juan Manuel Castorena Liver lesion K76.9 Assessments Encounter Date Diagnosis (ICD Code) Assessment Notes Treatment Notes Treatment Clinical Notes Section Notes 04/08/2025 Liver lesion (ICD-10 - K76.9) Total time spent on the date of the encounter is 35 minutes including both face to face time spent and time spent reviewing documentation,stud ies and counseling the patient. 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 Pending Test Test Name Order Date XR CHEST 2 VIEW PA & LAT 04/08/2025 Next Appt Details Follow Up: 1 Week, Reason: Provider Name:Juan Manuel narayanan, 04/15/2025 10:45:00 AM, [address] [place] [address], [address] [place] [address], [phone], Provider Name:Juan Manuel narayanan, 04/18/2025 07:30:00 AM, [address] [place] [address], [address] [place] [address], [phone], Provider Name:Juan Manuel narayanan, 05/03/2025 10:00:00 AM, [address] [place] [address], [address] [place] [address], [phone], Provider Name:Juan Manuel narayanan, 10/25/2025 07:30:00 AM, [address] [place] [address], [address] [place] [address], [phone], Provider Name:Juan Manuel narayanan, 11/01/2025 08:30:00 AM, [address] [place] [address], [address] [place] [address], [phone], Progress Notes * CIERA MUNIZ CDOB:1940 (84 yo M)Acc No.[id number]:04/08/2025 Patient: Shelley FLOYDNERYBrigette CIERA Stout Provider: Julio Castorena MD :1940 A ge:84 Y S ex:Male Date:04/08/2025 Address:[address] [place], [place] [phone] Subjective: * Chief Complaints: * 1 . must see / CT abd/MRI/ DISCUSS SEEING CERTIFIED TECHNICIAN. 2. Accompanied by . * HPI: I solation Precautions: patient is a 84 yo male here with to discuss recent results of CT/MRI. * ROS: G eneral/Constitutional: Alberies Argelia hills. D enies F atigue. D enies F ever. D enies H eadache. R espiratory: Cathleen Stout ough. D enies S hortness of breath at rest. D enies S hortness of breath with exertion. G astrointestinal: Cathleen Bocanegra iarrhea. D enies N ausea. * Medical History: Mica mcnamara is amlodipine,benicar and hctz, refuses colonoscopy 2011, 2012, 2013, 2014 (DON'T ASK AGAIN); 09/20/19 refused cologuard. * Medications: T aking FreeStyle Lancets 0 Miscellaneous used to test blood sugar daily invitro DX E11.9 once a day , Taking FreeStyle Lite Test - Strip use to test blood sugar DX:E11.9 In Vitro once a day , Taking ProAir HFA 90MCG Aerosol Solution INHALE 2 PUFFS EVERY 4 HOURS NEEDED Inhalation every 4 hrs , Taking hydroCHLOROthiazide 25 MG Tablet TAKE 1 TABLET BY MOUTH EVERY DAY IN THE MORNING , Taking Carvedilol 25 MG Tablet TAKE 1 TABLET BY MOUTH TWICE A DAY WITH FOOD , Taking Atorvastatin Calcium 20 MG Tablet TAKE 1 TABLET BY MOUTH EVERY DAY , Taking Betamethasone Dipropionate Aug 0.05 % Cream APPLY TO AFFECTED AREA EVERY DAY , Taking amLODIPine Besylate 10 MG Tablet TAKE 1 TABLET BY MOUTH EVERY DAY , Taking Basaglar KwikPen 100 UNIT/ML Solution Pen-injector 15 units , Taking metFORMIN HCl 500 MG Tablet TAKE 2 TABLETS BY MOUTH TWICE A DAY , Taking Farxiga 5 MG Tablet TAKE 1 TABLET BY MOUTH EVERY DAY IN THE MORNING , Taking BD Pen Needle Micro U/F 32G X 6 MM Miscellaneous DIRECTED UNDER SKIN DAILY 90 DAYS , Taking Omeprazole 20 MG Capsule Delayed Release TAKE 1 CAPSULE BY MOUTH IN THE MORNING 30 MINS BEFORE BREAKFAST 90 , Taking Losartan Potassium 100 MG Tablet TAKE 1 TABLET BY MOUTH EVERY DAY , Taking Albuterol Sulfate HFA 108 (90 Base) MCG/ACT Aerosol Solution 1 puff as needed Inhalation every 4 hrs , Not-Taking/PRN Insulin Glargine 100 UNIT/ML Solution Pen-injector as directed Subcutaneous 10 units per day , Not-Taking/PRN guaiFENesin-Codeine 100-10 MG/5ML Solution 10 mL as needed Orally every 6 hrs , Not-Taking/PRN Paxlovid (300/100) 20 x 150 MG & 10 x 100MG Tablet Therapy Pack as directed Orally 2 tabs nirm and 1 tab carola , Not-Taking/PRN Glimepiride 1MG Tablet TAKE 1 TABLET WITH BREAKFAST OR FIRST MAIN MEAL OF THE DAY Orally Once a day * Allergies: N .K.D.A. Objective: * Vitals: H t: 69.25, Wt: 186, BMI:27.27, BP:164/68, Repeat BP:130/80, Wt-k.37. * Examination: G eneral Examination: GENERAL APPEARANCE: a lert, well hydrated, in no distress.? HEAD: n ormocephalic. SKIN: g ood turgor. HEART: r egular rate and rhythm, no murmurs, rubs, gallops.? LUNGS: r ales in lower lobe. ABDOMEN: l ever about 6 inches below rib. ? Assessment: * Assessment: 1. L iver lesion - K76.9 (Primary) Plan: * Treatment: 2. 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 Sign off status: Pending * Provider: Julio Castorena MD Date: 0 04/08/2025 Generated for Cory kwan/Cheyenne/Perezitting on: 0 04/10/2025 08:25 AM EDT History and Physical Notes * HPI (History of Present Illness) Category Sub-Category Detail Notes Category Not es Isolation Precautions patiedgardo maria is a 84 yo male here with to discuss recent results of CT/MRI. Examination Category Sub-Category Detail Notes Category Not es General Examination GENERAL APPEARANCE: alert, w ell hydrated, in no distress HEAD: normocephalic HEART: regular rate and rhy thm, no murmurs, rubs, gallops LUNGS: rales in lower lobe ABDOMEN: lever about 6 inches below rib SKIN: good turgor
--- NOTE | ~2025-04-10 | XR_ITS ---
EXAMINATION: XR CHEST 2 VIEWS HISTORY: LIVER LESION COMPARISON: There are no prior studies available for comparison. FINDINGS: PA and lateral views of the chest are submitted. The lungs are expanded and clear. There is no pleural effusion, pneumothorax, or pulmonary vascular congestion. The heart is normal in size. There is calcification of the aorta. There is degenerative disc disease of the spine. XR/XR chest 2V IMPRESSION: Clear lungs. Electronically signed by: Ori Hart MD 04/10/2025 09:44 AM EDT
== END 2025-04-10 08:12 | disposition home or self-care (01) ==
LOC: HO.XRAY 08:11
PROVIDERS: PCP Internal Medicine; Visit Provider Internal Medicine
DX: K76.9 Liver disease, unspecified (principal)
CPT/HCPCS: 71046

== ENCOUNTER → 2025-04-10 08:16 | Outpatient (BNV) | payer MEDICARE, SELFPAY | PROVIDERS: PCP Internal Medicine; Visit Provider Radiology Diagnostic Radiology | DX: M51.360 Other intervertebral disc degeneration, lumbar region with discogenic back pain only (principal) | CPT/HCPCS: 71046 ==

== ENCOUNTER 2025-04-22 10:05 | Outpatient (REF) | payer MEDICARE, SELFPAY ==
--- OUTSIDE RECORDS SUMMARY | 2025-04-22 10:47 | XMS_ITS | Clinical Summary ---
Author Organization [facility] Address [address] [place] [phone] Phone Care Team Providers Care Litigation Legal Assistant Name Role Phone Juan Manuel Castorena MD Primary Care Provider Allergies No known active allergies Medications amLODIPine (NORVASC) 10 MG tablet Take 10 mg by mouth in the morning. Active atorvastatin (LIPITOR) 20 MG tablet Take 20 mg by mouth in the morning. 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 [address] [place] [phone] Jean-Paul Sosa MD Chronic kidney disease, stage 4 (severe) (HCC) (Primary Dx); Diabetes mellitus, not otherwise specified (HCC); Diabetic glomerulonephritis (HCC); Hypertension; Proteinuria, not otherwise specified; Hematuria, not otherwise specified; Analgesic nephropathy 02/21/2025 10:20 AM EDT Office Visit [facility] [address] [phone] Jean-Paul Sosa MD Chronic kidney disease, stage 4 (severe) (HCC) (Primary Dx); Diabetes mellitus, not otherwise specified (HCC); Diabetic glomerulonephritis (HCC); Hematuria, not otherwise specified; Hypertension; Proteinuria, not otherwise specified; Analgesic nephropathy from Last 3 Months Social History Tobacco Use Types Packs/Day Years Used Date Smoking Tobacco: Never Assessed Sex and Gender Information Value Date Recorded Sex Assigned at Not on file Legal Sex Male 3:46 PM EST Gender Identity Not on file Sexual Orientation Not on file Last Filed Vital Signs Vital Sign Reading Time Taken Comments Blood Pressure 156/72 03/13/2025 8:48 AM EDT Pulse 66 03/13/2025 8:48 AM EDT Temperature - - Respiratory Rate - - Oxygen Saturation 97% 03/13/2025 8:48 AM EDT Inhaled Oxygen Concentration - - Weight 84 kg (185 lb 3.2 oz) 03/13/2025 8:48 AM EDT Height - - Body Mass Index - - Plan of Treatment Upcoming Encounters Date Type Department Care Team (Late st Contact Info) Description 08/26/2025 9:00 AM EST Office Visit [facility] [address] [phone] Jean-Paul Sosa MD [address] [place] [address] [place] [phone] Health Maintenance Due Date Last Done Comments Pneumococcal Vaccine: 50+ Years (1 of 2 - PCV) 960 Hepatitis B Vaccine (1 of 3 - Risk 3-dose series) 10/17 Diabetes: Hemoglobin A1C 10/30/2024 Diabetes: Ophthalmology Exam 10/30/2024 Diabetes: Pedal Pulse Checked 10/30/2024 Diabetes: Sensory Foot Exam 10/30/2024 Diabetes: Visual Foot Exam 10/30/2024 Influenza Vaccine (#1) 2025 Insurance Medicare [facility] Care Teams Litigation Legal Assistant Relationship Specialty Start Date End Date Juan Manuel Castorena MD [address] [place] [address] [id number] [place], [place] PCP - General Internal Medicine 10/29/24
[2025-04-22 11:24] LABS: Hemoglobin A1C 203.2680 umol/L; Total Hemoglobin (HGBA1C) 4062.5111 umol/L
[2025-04-22 13:34] LABS: Alanine Aminotransferase 17 U/L (0-40); Albumin Level 3.7 g/dL (3.5-5.0); Alkaline Phosphatase 151 U/L (39-117); Aspartate Amino Transferase 36 U/L (5-37); Cholesterol 223 mg/dL (<200); HDL Cholesterol 33 mg/dL (>40); Total Protein 7.3 g/dL (6.5-8.0); Triglycerides 251 mg/dL (<150)
[2025-04-22 13:41] LABS: Reflex LDLD? No
--- NOTE | 2025-05-22 10:04 | PC.NURSE ---
Spoke to patient this morning regarding preprocedural instructions: pt reports that he has held his Farxiga since 05/20, will take half dose insulin@ HS tonight, no insulin in the am, will hold metformin 05/23. Pt reports that he does have a ride to and from the hospital and someone will stay with him for the remainder of the day
== END 2025-04-22 10:06 | disposition home or self-care (01) ==
LOC: HO.LNP 10:05
PROVIDERS: Visit Provider Internal Medicine
DX: E11.9 Type 2 diabetes mellitus without complications (principal); E78.00 Pure hypercholesterolemia, unspecified; Z79.4 Long term (current) use of insulin
CPT/HCPCS: 80061; 80076; 82947; 83036

== ENCOUNTER → 2025-05-22 08:44 | Outpatient (AMB) | payer MEDICARE, SELFPAY ==
--- OUTSIDE RECORDS SUMMARY | 2025-04-22 03:30 | XMS_ITS ---
Author Organization Juan Manuel Castorena MD Address [address] [place] [phone] Care Team Providers Care Machine Container Washer Name Role Phone Juan Manuel Castorena Primary Care Provider Results Component Value Reference Range Notes Liver Panel Reviewed date:04/22/2025 03:21:45 PM Interpretation: Performing Lab:[facility], [address] [place] [phone] Notes/Report: Bilirubin Total 0.4 0.0-1.0 mg/dL Bilirubin Direct 0.1 0.0-0.5 mg/dL Aspartate Amino Transferase 36 5-37 U/L Alanine Aminotransferase 17 0-40 U/L Total Protein 7.3 6.5-8.0 g/dL Albumin Level 3.7 3.5-5.0 g/dL Alkaline Phosphatase 151 39-117 U/L Glucose Fasting Reviewed date:04/22/2025 03:21:36 PM Interpretation: Performing Lab:[facility], [address] [place] [phone] Notes/Report: Glucose Fasting 155 60-99 mg/dL A fasting glucose of 126 mg/dl or greater on more than one occasion is considered diagnostic of diabetes. Lipid Panel with Reflex Reviewed date:04/23/2025 12:44:59 PM Interpretation: Performing Lab:[facility], [address] [place] [phone] Notes/Report: Triglycerides 251 <150 mg/dL Desirable Triglyceride: less than 150 mg/dL Borderline High Triglyceride 150-199 mg/dL High Triglyceride: 200-499 mg/dL Very High Triglyceride: greater than or equal to 5OO mg/dL Cholesterol 223 <200 mg/dL Desirable Cholesterol: less than 200 mg/dL Borderline High Cholesterol: 200-239 mg/dL High Cholesterol: greater than 239 mg/dL LDL Cholesterol Calculated 140 <100 mg/dL Desirable LDL: less than 100 mg/dL Near Optimal/Above Optimal LDL: 110-129 mg/dL Borderline High LDL: 130-159 mg/dL High LDL: 160-189 mg/dL Very High LDL: greater than or equal to 190 mg/dL HDL Cholesterol 33 >40 mg/dL Desirable HDL: greater than 40 mg/dL Note: This HDL assay may give artificially low results in patients with liver disease. Hemoglobin A1c Reviewed date:04/22/2025 12:46:09 PM Interpretation: Performing Lab:[facility], [address] [place] [phone] Notes/Report: Hemoglobin A1c % 6.7 <6.0 % Hemoglobin A1C Reference Range Adults: 4.8 - 6.0 % Non diabetic: < 6.0 % Goal: < 7.0 % Additional Action Suggested: > 8.0 % Note: Hemoglobin A1c results are invalid for patients with abnormal amounts of HbF. Blood transfusions may impact the HbA1c concentration in the patient sample. Estimated Average Glucose 146 eAG = Estimated average glucose which is %A1C expressed as average glucose, using the formula of the K2Q-Yysrjmp Average Glucose study (ADAG), Diabetes Care, Vol.31,#8, May. 2007 REASON FOR VISIT fasting lipids Encounters Encounter Location Date Provider Diagnosis Juan Manuel Castorena MD [address] [place] [address] [address] [place], [place] [phone] 04/22/2025 Juan Manuel Castorena Type 2 diabetes laurel itus without complication E11.9 and Pure hypercholesterolemia E78.00 Assessments Encounter Date Diagnosis (ICD Code) Assessment Notes Treatment Notes Treatment Clinical Notes Section Notes 04/22/2025 Type 2 diabetes laurel itus without complication (ICD-10 - E11.9) 04/22/2025 Pure hypercholesterolemia (ICD-10 - E78.00) Plan Of Treatment Next Appt Details Provider Name:Juan Manuel Huffman ier, 10/25/2025 07:30:00 AM, [address], [address], [place], [place], [phone], Provider Name:Juan Manuel Huffman ier, 11/01/2025 08:30:00 AM, [address], [address], [place], [place], [phone], Progress Notes * CIERA MUNIZ CDOB:1940 (84 yo M)Acc No.[id number]:04/22/2025 Progress Note Patient: CIERA BEAULIEU Provider: Julio Castorena MD :1940 A ge:84 Y S ex:Male Date:04/22/2025 Address:[address] [place], [place] [phone] Subjective: * Chief Complaints: * 1 . Fasting lipids. * Medical History: Objective: * Vitals: Assessment: * Assessment: 1. T ype 2 diabetes mellitus without complication - E11.9 (Primary) 2 . P ure hypercholesterolemia - E78.00 Plan: * Treatment: 2. P ure hypercholesterolemia L AB: Liver Panel (Collection Date & Time - 04/22/2025 07:30 AM) L AB: Glucose Fasting (Collection Date & Time - 04/22/2025 07:30 AM) L AB: Lipid Panel with Reflex (Collection Date & Time - 04/22/2025 07:30 AM) L AB: Hemoglobin A1c (Collection Date & Time - 04/22/2025 07:30 AM) * Procedure Codes: 3 6415 VENIPUNCT, ROUTINE* * * The named appointment provid er may or may not be the originator of this progress note, and it is not deemed complete until electronically signed by the appointment provider. Sign off status: Pending * Provider: Julio Castorena MD Date: 0 04/22/2025 Generated for Leydii aniya/Cheyenne/eTransmitting on: 0 05/22/2025 08:57 AM EDT
--- OUTSIDE RECORDS SUMMARY | 2025-05-22 08:58 | XMS_ITS | Encounter Summary ---
Author Organization [facility] Address [address] [place] [phone] Phone Care Team Providers Care Jar Capper Name Role Phone Juan Manuel Castorena MD Primary Care Provider Encounter Details Date Type Department Care Team (Late st Contact Info) Description 06/02/2021 Transcribe Orders Virtual Department [address] [place] [address] Juan Manuel Castorena MD [address] [place] [address] [place] [address] Peptic ulcer (Primary Dx) Social History Tobacco [...] suggest gastric ulcers. Juan Manuel Castorena MD [facility] Final R esult documented in this encounter Visit Diagnoses Diagnosis Peptic ulcer- Primary Peptic ulcer, unspecified site, unspecified as acute or chronic, without mention of hemorrhage, perforation, or obstruction Peptic ulcer Peptic ulcer, unspecified site, unspecified as acute or chronic, without mention of hemorrhage, perforation, or obstruction documented in this encounter Care Teams Jar Capper Relationship Specialty Start Date End Date Juan Manuel Castorena MD [address] [place] [address] [place] [address] PCP - General 10/20/17 documented as of this encounter Additional Source Comments The information contained in this document represents components of the legal health record. It is not the complete legal health record.[facility]
--- OUTSIDE RECORDS SUMMARY | 2025-05-22 08:58 | XMS_ITS | Clinical Summary ---
Author Organization [facility] Address [address] [place] [phone] Phone Care Team Providers Care Vending Machine Repairer Name Role Phone Juan Manuel Castorena MD [...] Visit [facility] [address] [place] [phone] Jean-Paul Sosa MD Chronic kidney disease, stage 4 (severe) (HCC) (Primary Dx); Diabetes mellitus, not otherwise specified (HCC); Diabetic glomerulonephritis (HCC); Hypertension; Proteinuria, not otherwise specified; Hematuria, not otherwise specified; Analgesic nephropathy 02/21/2025 10:20 AM EDT [facility] Visit [facility] [address] [phone] Jean-Paul Sosa MD Chronic kidney disease, stage [...] Office Visit [facility] [address] [phone] Jean-Paul Sosa MD [address] [place] [address] [place] [phone] Health Maintenance Due Date Last Done Comments Pneumococcal Vaccine: 50+ Years (1 of 2 - PCV) 960 Hepatitis B Vaccine (1 of 3 - Risk 3-dose series) 10/17 Diabetes: Hemoglobin A1C 10/30/2024 Diabetes: Ophthalmology Exam 10/30/2024 Diabetes: Pedal Pulse Checked 10/30/2024 Diabetes: Sensory Foot Exam 10/30/2024 Diabetes: Visual Foot Exam 10/30/2024 Influenza Vaccine (#1) 2025 Insurance Medicare [facility] Care Teams Vending Machine Repairer Relationship Specialty Start Date End Date Juan Manuel Castorena MD [address] [place] [address] [address] [place], [place] PCP - General Internal Medicine 10/29/24
[2025-05-22 09:18] VITALS: BMI 25.9
--- NOTE | 2025-05-22 09:18 | A.OFFVIS_ITS ---
VS Expanded 05/22/25 09:18 Height 5 ft 10 in Weight 180 lb 5.41 oz BMI 25.9 Intake Visit Reasons: T2DM Nutrition Presentation Details: Pt presents for MNT for T2DM Pt reports doing ok , noticed 4 lb wt loss since last visit 6 wks ago. A1c at 6.7% 04/2025 Pt is concerned regarding pending liver biopsy scheduled for tomorrow. Pt is worried about CA, this may have also contributed to some of his wt loss. BS Monitoring Most Recent Diabetes Results: Cholesterol, (<200) 223 mg/dL H 04/22/25 HDL Cholesterol, (>40) 33 mg/dL L 04/22/25 Triglycerides, (<150) 251 mg/dL H 04/22/25 Creatinine, (0.5-1.4) 2.03 mg/dL H 03/08/25 BUN, (9-16) 32 mg/dL H 03/08/25 AST, (5-37) 36 U/L 04/22/25 ALT, (0-40) 17 U/L 04/22/25 Total Protein, (6.5-8.0) 7.3 g/dL 04/22/25 Albumin, (3.5-5.0) 3.7 g/dL 04/22/25 [facility] Medical History (Updated 05/23/25 @ 06:54 by Aylin Hutchins RN) GERD (gastroesophageal reflux disease) Diabetes Hypercholesteremia Hypertension Assessment & Plan Assessment & Plan (1) T2DM (type 2 diabetes mellitus): Code(s): E11.9 - Type 2 diabetes mellitus without complications Category: Medical Plan: Wt: 84 Kg ( 04/10 ), 82kg(06/10) Est kcal needs as per MSJ: 2100 (40% carb, 30% protein/fat) Est fluid needs as per 25-30 ml/d: 2500 Est prot per day as per 1-1.2 g/kg bw: 80-100 Recommend fiber intake : 8-10 g per day and gradually increase to 25-28 g per day for women and 35-38 g for men or as tolerated Recommend sodium intake per day : less than 5977-1178 mg Educated patient on: ( R = reviewed V = verbalizes understanding N/R = needs review N/A = not applicable * Food sources of carbohydrate, adequate serving sizes and its role in various health conditions: R V N/R * Differences between complex carbohydrates a simple carbohydrates, role of fiber in diet: R * Lean protein sources of foods: R * Differences between types of fats and role in diet (mono on saturated fat fatty acids, saturated fatty acids, trans fats): R V N/R * Food sources of sodium in salt and healthy modifications for heart health in kidney health: R * Vitamins and minerals: R V N/R * Healthy plate method concept: R * Physical activity: Benefits a precaution: R V N/R * Hypoglycemia protocol (rule of 15): R V N/R * Dietary prevention of Hyperglycemia: R , V Patient Instructions: Have a glucerna shake instead of skipping meal or if having low appetite or cup of milk with peanut butter or oatmeal (choosing a combination of carb/prot/fiber) working on weight maintenance, prevention of weight loss call for questions prior to next follow up appointment Coding Level of Care Code Nutr Indiv Subseq (77178) Diagnoses T2DM (type 2 diabetes mellitus) E11.9 Time Spent (min) 30
== END ==
LOC: HO.ENCR 08:45
PROVIDERS: PCP Internal Medicine; Visit Provider Dietitian, Registered
DX: E11.9 Type 2 diabetes mellitus without complications (principal)

== ENCOUNTER → 2025-05-22 08:44 | Outpatient (BNVA) | payer MEDICARE, SELFPAY | PROVIDERS: PCP Internal Medicine; Visit Provider Dietitian, Registered | DX: E11.9 Type 2 diabetes mellitus without complications (principal) | CPT/HCPCS: 97803 ==

== ENCOUNTER 2025-05-23 11:01 | Day surgery (SDC) | payer MEDICARE, SELFPAY ==
--- OUTSIDE RECORDS SUMMARY | 2025-04-22 03:30 | XMS_ITS ---
Author Organization Juan Manuel Castorena MD Address [address] [place] [phone] Care Team Providers Care Undercover Cop Name Role Phone Juan Manuel Castorena Primary Care Provider [phone] Results Component Value Reference Range Notes Liver Panel Reviewed date:04/22/2025 03:21:45 PM Interpretation: Performing Lab:[facility], [address] [place] [phone] Notes/Report: Bilirubin Total 0.4 0.0-1.0 mg/dL Bilirubin Direct 0.1 0.0-0.5 mg/dL Aspartate Amino Transferase 36 5-37 U/L Alanine Aminotransferase 17 0-40 U/L Total Protein 7.3 6.5-8.0 g/dL Albumin Level 3.7 3.5-5.0 g/dL Alkaline Phosphatase 151 39-117 U/L Glucose Fasting Reviewed date:04/22/2025 03:21:36 PM Interpretation: Performing Lab:[facility], [address] [place] [phone] Notes/Report: Glucose Fasting 155 60-99 mg/dL A fasting glucose of 126 mg/dl or greater on more than one occasion is considered diagnostic of diabetes. Lipid Panel with Reflex Reviewed date:04/23/2025 12:44:59 PM Interpretation: Performing Lab:[facility], [address] [place] [phone] Notes/Report: Triglycerides 251 <150 mg/dL Desirable Triglyceride: [...] A1c Reviewed date:04/22/2025 12:46:09 PM Interpretation: Performing Lab:[facility], [address] [place] [phone] Notes/Report: Hemoglobin A1c % 6.7 <6.0 % [...] average glucose, using the formula of the S2H-Urmvnbu Average Glucose study (ADAG), Diabetes Care, Vol.31,#8, May. 2007 REASON FOR VISIT fasting lipids Encounters Encounter Location Date Provider Diagnosis Juan Manuel Castorena MD [address] [place] [address] [address] [place], [place] [phone] 04/22/2025 Juan Manuel Castorena Type 2 diabetes [...] 07:30:00 AM, [address], [address], [place], [place], [phone], Provider Name:Juan Manuel Huffman ier, 11/01/2025 08:30:00 AM, [address], [address], [place], [place], [phone], Progress Notes * CIERA MUNIZ CDOB:1940 (84 yo M)Acc No.[id number]:04/22/2025 Progress Note Patient: CIERA BEAULIEU Provider: Julio Castorena MD :1940 A ge:84 Y S ex:Male Date:04/22/2025 Address:[address] [place], [place] [phone] Subjective: * Chief Complaints: * 1 . [...] provider. Sign off status: Pending * Provider: Juilo Castorena MD Date: 0 04/22/2025 Generated for Leydii aniya/Cheyenne/eTransmitting on: 0 05/09/2025 09:21 AM EDT
--- OUTSIDE RECORDS SUMMARY | 2025-05-09 09:21 | XMS_ITS | Encounter Summary ---
Author Organization [facility] Address [address] [place] [phone] Phone Care Team Providers Care Tubing Supervisor Name Role Phone Juan Manuel Castorena MD Primary Care Provider Encounter Details Date Type Department Care Team (Late st Contact Info) Description 06/02/2021 Transcribe Orders Virtual Department [address] [place] [address] Juan Manuel Castorena MD [address] [place] [address] [place] [address] Peptic ulcer (Primary Dx) Social History Tobacco Use Types Packs/Day Years Used Date Smoking Tobacco: Never Assessed Sex and Gender Information Value Date Recorded Sex Assigned at Not on file Legal Sex Male 10:12 PM EDT Gender Identity Not on file Sexual Orientation Not on file documented as of this encounter Plan of Treatment Not on file documented as of this encounter Results * FL UGI SERIES DOUBLE CONTRAST (06/05/2021 8:48 AM EDT) Anatomical Region Laterality Modality Abdomen Computed Radiogr aphy 06/05/2021 5:29 PM EDT Impressions 06/05/2021 5:34 PM EDT 1.Mild esophageal dysmotility. 2.Small hiatal hernia. 3.Gastroesophageal reflux identified. 4.No specific findings of the stomach to suggest gastric ulcers. Narrative 06/05/2021 5:34 PM EDT TECHNIQUE: AIR CONTRAST UPPER GI SERIES OPERATORS: Dr. Go Storm COMPARISON: None available. FINDINGS: ESOPHAGUS: Motility: Mild dysmotility. Mucosa: Unremarkable. Distensibility: Normal. GASTROESOPHAGEAL JUNCTION: Small hiatal hernia. GASTROESOPHAGEAL REFLUX: Observed. STOMACH: Normally distensible and demonstrates normal contours and mucosal pattern. DUODENUM: Bulb and sweep are normal. Duodenal-jejunal junction is in the normal expected position. Radiation Exposure: Fluoroscopy Time: 4 minutes 27 seconds, Dose: 82.37 mGy, Dose Area Product (DAP): 939.65 uGy * m^2, Number of total images: 470 Procedure Note Go Storm MD - 06/05/2021 TECHNIQUE: AIR CONTRAST UPPER GI SERIES OPERATORS: Dr. Go Storm COMPARISON: None available. FINDINGS: ESOPHAGUS: Motility: Mild dysmotility. Mucosa: Unremarkable. Distensibility: Normal. GASTROESOPHAGEAL JUNCTION: Small hiatal hernia. GASTROESOPHAGEAL REFLUX: Observed. STOMACH: Normally distensible and demonstrates normal contours andmucosal pattern. DUODENUM: Bulb and sweep are normal. Duodenal-jejunal junction is in thenormal expected position. Radiation Exposure: Fluoroscopy Time: 4 minutes 27 seconds, Dose: 82.37 mGy, Dose Area Product (DAP): 939.65 uGy * m^2, Number of total images: 470 IMPRESSION: 1.Mild esophageal dysmotility. 2.Small hiatal hernia. 3.Gastroesophageal reflux identified. 4.No specific findings of the stomach to suggest gastric ulcers. Juan Manuel Castorena MD [facility] Final R esult documented in this encounter Visit Diagnoses Diagnosis Peptic ulcer- Primary Peptic ulcer, unspecified site, unspecified as acute or chronic, without mention of hemorrhage, perforation, or obstruction Peptic ulcer Peptic ulcer, unspecified site, unspecified as acute or chronic, without mention of hemorrhage, perforation, or obstruction documented in this encounter Care Teams Tubing Supervisor Relationship Specialty Start Date End Date Juan Manuel Castorena MD [address] [place] [address] [place] [address] PCP - General 10/20/17 documented as of this encounter Additional Source Comments The information contained in this document represents components of the legal health record. It is not the complete legal health record.[facility]
--- OUTSIDE RECORDS SUMMARY | 2025-05-09 09:21 | XMS_ITS | Clinical Summary ---
Author Organization [facility] Address [address] [place] [phone] Phone Care Team Providers Care Functional Tester Typewriters Name Role Phone Juan Manuel Castorena MD Primary Care Provider [phone] Allergies No known active allergies Medications amLODIPine [...] Office Visit [facility] [address] [place] [phone] Jean-Paul Sosa MD Chronic kidney disease, stage 4 (severe) (HCC) (Primary Dx); Diabetes mellitus, not otherwise specified (HCC); Diabetic glomerulonephritis (HCC); Hypertension; Proteinuria, not otherwise specified; Hematuria, not otherwise specified; Analgesic nephropathy 02/21/2025 10:20 AM EDT Office Visit [facility] [address] [phone] Jean-Paul Sosa MD Chronic kidney disease, stage [...] Office Visit [facility] [address] [phone] Jean-Paul Sosa MD [address] [place] [address] [place] [phone] Health Maintenance Due Date Last Done Comments Pneumococcal Vaccine: 50+ Years (1 of 2 - PCV) 960 Hepatitis B Vaccine (1 of 3 - Risk 3-dose series) 10/17 Diabetes: Hemoglobin A1C 10/30/2024 Diabetes: Ophthalmology Exam 10/30/2024 Diabetes: Pedal Pulse Checked 10/30/2024 Diabetes: Sensory Foot Exam 10/30/2024 Diabetes: Visual Foot Exam 10/30/2024 Influenza Vaccine (#1) 2025 Insurance Medicare [facility] Care Teams Functional Tester Typewriters Relationship Specialty Start Date End Date Juan Manuel Castorena MD [address] [place] [address] [address] [place], [place] PCP - General Internal Medicine 10/29/24
[2025-05-23] VITALS (19 sets, daily range): BP systolic 161–203; BP diastolic 66–88; PULSE 57–75; RESP 12–18; TEMP 36.4–36.8; O2SAT 94–97; BMI 25.8
--- NOTE | ~2025-05-23 | US_ITS ---
Clinical history: Liver mass PROCEDURES: 1. Limited preprocedure ultrasound of the abdomen. Permanent images saved in PACS. 2. Ultrasound-guided biopsy of the right lobe liver mass. 3. Limited preprocedure ultrasound of the abdomen. Permanent images saved in PACS. CLINICIANS: Jean Claude Carlson NP MEDICATIONS: -Versed , Fentanyl , and lidocaine 1% 5 mL SQ -Antibiotics: None -For additional details, please see nursing flowsheet. COMPLICATIONS: None ESTIMATED BLOOD LOSS: < 5 ml CONTRAST: None SPECIMENS: 5 x 18 g cores were sent to pathology MODERATE SEDATION TIME: 15 min PROCEDURE NOTE: The procedure, risks, benefits, and alternatives were carefully explained to the patient and written informed consent was obtained. The patient was placed supine on the exam table. A timeout was performed. A limited ultrasound of the abdomen was performed to localize the right lobe liver mass and choose appropriate needle entry and trajectory. The patient was prepped and draped in usual sterile fashion. The skin and deeper soft tissues were anesthetized with lidocaine. Under ultrasound guidance, a 17 gauge trocar needle was advanced to the liver lesion. An 18 gauge biopsy device was inserted through the trocar needle advanced into the liver lesion. A total of 5,18 gauge cores were performed. The specimens were placed in formalin. A total of 2 Gelfoam torpedoes were then administered through the trocar needle into the biopsy tract and at the level of the liver capsule. The needle was removed. A limited post procedure ultrasound was then performed. Images were saved in PACS. A dry dressing was applied and secured with Tegaderm. There were no immediate complications. The patient was stable after the procedure and was transferred to the post anesthesia care unit. The procedure was done under moderate sedation with a dedicated nurse for monitoring of vital signs. US/US biopsy liver Impression: Ultrasound-guided biopsy of a right lobe liver mass. This procedure was performed by Jean Claude Carlson NP and supervised by Nicki Laureano MD . Electronically signed by: Carlyle Laureano MD 05/24/2025 01:54 PM EDT RP
[2025-05-23 12:09] LABS: MANUAL DIFF FLAG NO
[2025-05-23 12:10] LABS: Glucose, Whole Blood 164 mg/dL (60-115)
[2025-05-23 12:12] LABS: Hematocrit 43.7 % (42.0-52.0); Hemoglobin 14.9 g/dl (14.0-18.0); Imm Gran Abs Auto 0.02 X10*3/uL (0.00-0.03); Imm Gran Pct Auto 0.3 % (0.0-0.4); Lymphocytes Absolute Auto 1.2 X10*3/uL (1.2-4.9); Mean Corpuscular HGB Conc 34.1 g/dl (31.0-36.0); Mean Corpuscular Hemoglobin 28.8 pg (27.0-33.0); Mean Corpuscular Volume 84.5 fL (80.0-98.0); NRBC Abs Auto 0.000 X10*3/uL (0.0-0.012); NRBC Pct Auto 0.0 /100WBC (0.0-0.2); Platelet Count 276 X10*3/uL (160-400); Red Blood Count 5.17 X10*6/uL (4.60-5.80); White Blood Count 6.9 X10*3/uL (4.8-10.8)
[2025-05-23 12:17] LABS: INTERNATIONAL NORM RATIO 1.0 (0.9-1.1); Prothrombin Time 11.8 SEC (10.9-12.4)
[2025-05-23 12:19] LABS: Partial Thromboplastin Time 31.5 SEC (26.7-34.1)
--- NOTE | 2025-05-23 12:29 | PC.NURSE ---
Jean Claude Carlson NP is aware of automatic and manual bp results and is communicating with author. Patient remains asymptomatic, stating is very nervous regarding results of todays procedure.
--- NOTE | 2025-05-23 12:56 | PC.NURSE ---
Jean Claude Carlson TRIAGE LICENSED PRACTICAL NURSE updated regarding most recent and improved automatic blood pressure. Decision made by him to hold off on hypertensive medication at this time.
[2025-05-23] MEDS: Lidocaine HCl 1 % MPF 5 ML VIAL SUBCUT (13:51)
== END 2025-05-23 15:45 | disposition home or self-care (01) ==
LOC: HO.SSS 11:03
PROVIDERS: Radiology Diagnostic Radiology; PCP Internal Medicine; Visit Provider Internal Medicine
DX: C22.0 Liver cell carcinoma (principal); K76.9 Liver disease, unspecified; R63.4 Abnormal weight loss; Z68.25 Body mass index [BMI] 25.0-25.9, adult; E11.9 Type 2 diabetes mellitus without complications; I10 Essential (primary) hypertension; E78.00 Pure hypercholesterolemia, unspecified; K21.9 Gastro-esophageal reflux disease without esophagitis
CPT/HCPCS: 36415; 47000; 76942; 82947; 85025; 85610; 85730; 86850; 86900; 86901; 88307; 88313; 88341; 88342; 99152; J2003; J2250; J3010

== ENCOUNTER → 2025-05-23 13:00 | Outpatient (BNV) | payer MEDICARE, SELFPAY | PROVIDERS: PCP Internal Medicine | DX: R93.2 Abnormal findings on diagnostic imaging of liver and biliary tract (principal) | CPT/HCPCS: 47000; 76942 ==

== ENCOUNTER → 2025-06-12 10:51 | Outpatient (BNV) | payer MEDICARE, SELFPAY | PROVIDERS: PCP Internal Medicine; Visit Provider Internal Medicine | DX: C22.0 Liver cell carcinoma (principal) | CPT/HCPCS: 99205; G2211 ==

== ENCOUNTER 2025-07-06 10:19 | Outpatient (REF) | payer MEDICARE, SELFPAY ==
--- OUTSIDE RECORDS SUMMARY | 2025-04-22 03:30 | XMS_ITS ---
Author Organization Juan Manuel Castorena MD Address [address] [place] [phone] Care Team Providers Care Racking Machine Operator Name Role Phone Juan Manuel Castorena Primary Care Provider [phone] Results Component Value Reference Range Notes Liver Panel Reviewed date:04/22/2025 03:21:45 PM Interpretation: Performing Lab:[facility], [address] [place] [phone] Notes/Report: Bilirubin Total 0.4 0.0-1.0 mg/dL Bilirubin Direct 0.1 0.0-0.5 mg/dL Aspartate Amino Transferase 36 5-37 U/L Alanine Aminotransferase 17 0-40 U/L Total Protein 7.3 6.5-8.0 g/dL Albumin Level 3.7 3.5-5.0 g/dL Alkaline Phosphatase 151 39-117 U/L Glucose Fasting Reviewed date:04/22/2025 03:21:36 PM Interpretation: Performing Lab:[facility], [address] [place] [phone] Notes/Report: Glucose Fasting 155 60-99 mg/dL A fasting glucose of 126 mg/dl or greater on more than one occasion is considered diagnostic of diabetes. Lipid Panel with Reflex Reviewed date:04/23/2025 12:44:59 PM Interpretation: Performing Lab:[facility], [address] [place] [phone] Notes/Report: Triglycerides 251 <150 mg/dL Desirable Triglyceride: [...] A1c Reviewed date:04/22/2025 12:46:09 PM Interpretation: Performing Lab:[facility], [address] [place] [phone] Notes/Report: Hemoglobin A1c % 6.7 <6.0 % [...] average glucose, using the formula of the W1O-Prrcvqx Average Glucose study (ADAG), Diabetes Care, Vol.31,#8, May. 2007 REASON FOR VISIT fasting lipids Encounters Encounter Location Date Provider Diagnosis Juan Manuel Castorena MD [address] [place] [address] [address] [place], [place] [phone] 04/22/2025 Juan Manuel Castorena Type 2 diabetes [...] 07:30:00 AM, [address], [address], [place], [place], [phone], Provider Name:Juan Manuel Huffman ier, 11/01/2025 08:30:00 AM, [address], [address], [place], [place], [phone], Progress Notes * CIERA MUNIZ CDOB:1940 (84 yo M)Acc No.[id number]:04/22/2025 Progress Note Patient: CIERA BEAULIEU Provider: Julio Castorena MD :1940 A ge:84 Y S ex:Male Date:04/22/2025 Address:[address] [place], [place] [phone] Subjective: * Chief Complaints: * 1 . [...] MD Date: 0 04/22/2025 Generated for Leydii ng/Gregoryg/eTransmitting on: 0 07/06/2025 10:22 AM EDT
--- OUTSIDE RECORDS SUMMARY | 2025-05-02 05:11 | XMS_ITS ---
Author Organization Juan Manuel Castorena MD Address [address] [place] [phone] Care Team Providers Care Cathode Maker Name Role Phone Juan Manuel Castorena Primary Care Provider REASON FOR VISIT orders for PET scan Encounters Encounter Location Date Provider Diagnosis Juan Manuel Castorena MD 10 [facility] [address] [place] [phone] 05/02/2025 Juan Manuel Castorena Liver lesion K76.9 Assessments Encounter Date Diagnosis (ICD Code) Assessment Notes Treatment Notes Treatment Clinical Notes Section Notes 05/02/2025 Liver lesion (ICD-10 - K76.9) Plan Of Treatment Pending Test Test Name Order Date PET CT fusion skull to thigh 05/02/2025 Next Appt Details Provider Name:Juan Manuel narayanan, 10/25/2025 07:30:00 AM, [address] [place] [address], [address], [phone], Provider Name:Juan Manuel narayanan, 11/01/2025 08:30:00 AM, [address] [place] [address], [address], [phone], Progress Notes * CIERA MUNIZ CDOB:1940 (84 yo M)Acc No.[id number]:05/02/2025 Patient: CIERA BEAULIEU :1940 A ge:84 Y S ex:Male Address:[address] [place] [address] Subjective: * Chief Complaints: * o rders for PET scan * Medical History: * Surgical History: * Hospitalization/Major Diagno stic Procedure: * Medications: Objective: * Vitals: * Physical Examination: Assessment: * Assessment: 1. L iver lesion - K76.9 Plan: * Treatment: * Procedure Codes: * true * Date: Generated for Cory kwan/Cheyenne/Aileen on: 0 07/06/2025 10:22 AM EDT
--- OUTSIDE RECORDS SUMMARY | 2025-05-03 06:00 | XMS_ITS ---
Author Organization Juan Manuel Castorena MD Address [address] [place] [phone] Care Team Providers Care Wire Coater Name Role Phone Juan Manuel Castorena Primary Care Provider [phone] Allergies No Known Allergies REASON FOR VISIT 6 month f/u Medications Medication SIG (Take, Route, Frequency, Duration) Notes Start Date End Date Status FreeStyle Lite Test - use to test blood sugar DX:E11.9 In Vitro once a day for 30 days 04/17/2019 Active FreeStyle Lancets 0 used to test blood sugar daily invitro DX E11.9 once a day for 90 days 08/12/2016 Active Paxlovid (300/100) 20 x 150 MG & 10 x 100MG as directed Orally 2 tabs nirm and 1 tab carola for 5 days 07/20/2022 Not-Taking guaiFENesin-Codeine 100-10 MG/5ML 10 mL as needed Orally every 6 hrs for 10 days 09/06/2022 Not-Taking Glimepiride 1MG TAKE 1 TABLET WITH BREAKFAST OR FIRST MAIN MEAL OF THE DAY Orally Once a day for 90 Not-Taking Omeprazole 20 MG TAKE 1 CAPSULE BY MOUTH IN THE MORNING 30 MINS BEFORE BREAKFAST 90 for 90 Active Albuterol Sulfate HFA 108 (90 Base) MCG/ACT 1 puff as needed Inhalation every 4 hrs for 30 days 02/25/2025 Active Losartan Potassium 100 MG TAKE 1 TABLET BY MOUTH EVERY DAY for 90 Active Insulin Glargine 100 UNIT/ML as directed Subcutaneous 10 units per day 03/03/2023 Not-Taking hydroCHLOROthiazide 25 MG TAKE 1 TABLET BY MOUTH EVERY DAY IN THE MORNING for 90 Active amLODIPine Besylate 10 MG TAKE 1 TABLET BY MOUTH EVERY DAY for 90 Active BD Pen Needle Micro U/F 32G X 6 MM DIRECTED UNDER SKIN DAILY 90 DAYS for 90 Active Farxiga 5 MG TAKE 1 TABLET BY MOUTH EVERY DAY IN THE MORNING Active metFORMIN HCl 500 MG TAKE 2 TABLETS BY MOUTH TWICE A DAY Active Basaglar KwikPen 100 UNIT/ML 15 units Active ProAir HFA 90MCG INHALE 2 PUFFS EVERY 4 HOURS NEEDED Inhalation every 4 hrs Active Betamethasone Dipropionate Aug 0.05 % APPLY TO AFFECTED AREA EVERY DAY for 50 Active Atorvastatin Calcium 20 MG TAKE 1 TABLET BY MOUTH EVERY DAY for 90 Active Carvedilol 25 MG TAKE 1 TABLET BY MOUTH TWICE A DAY WITH FOOD for 90 Active Vital Signs Blood pressure systolic 138 mm Hg 05/03/20 25 Blood pressure diastolic 66 mm Hg 025 Height 69.25 in 05/03/2025 Weight 181 lbs 05/03/2025 BMI 26.53 kg/m2 05/03/2025 weight is down 2 pounds [facility] 04-15-25 Encounters Encounter Location Date Provider Diagnosis Juan Manuel Castorena MD [address] [place] [address] [place] [phone] 05/03/2025 Juan Manuel Castorena Liver lesion K76.9 a nd Pure hypercholesterolemia E78.00 Assessments Encounter Date Diagnosis (ICD Code) Assessment Notes Treatment Notes Treatment Clinical Notes Section Notes 05/03/2025 Liver lesion (ICD-10 - K76.9) will arrange biopsy. not on tuesday this week 05/03/2025 Pure hypercholesterolemia (ICD-10 - E78.00) will observe for now Plan Of Treatment Treatment Notes Assessment Notes Liver lesion will arrange biopsy. not on tuesday this Pure hypercholesterolemia will observe f or now Pending Test Test Name Order Date US LIVER BIOPSY CORE GUIDE 05/03/2025 CT biopsy liver 05/03/2025 Next Appt Details Provider Name:Juan Manuel Huffman ier, 10/25/2025 07:30:00 AM, [address], [address], [place], [place], [phone], Provider Name:Juan Manuel Huffman ier, 11/01/2025 08:30:00 AM, [address], [address], [place], [place], [phone], Progress Notes * CIERA MUNIZ CDOB:1940 (84 yo M)Acc No.[id number]:05/03/2025 Progress Notes Patient: CIERA BEAULIEU Provider: Julio Castorena MD :1940 A ge:84 Y S ex:Male Date:05/03/2025 Address:[address] [place], [place] [phone] Subjective: * Chief Complaints: * 6 month f/u * HPI: S ymptom(s): patient is a 84 yo male here for 6 month follow up visit. * ROS: G eneral/Constitutional: Denies C hills. D enies F atigue. D enies F ever. D enies H eadache. E NT: Denies S ore throat. E ndocrine: Admits D ifficulty sleeping. D enies D izziness.?Denies E xcessive sweating. A dmits E xcessive thirst. A dmits F requent urination. R espiratory: Denies C ough. D enies [...] 4 HOURS NEEDED Inhalation every 4 hrs Carvedilol 25 MG Tablet TAKE 1 TABLET [...] puff as needed Inhalation every 4 hrs hydroCHLOROthiazide 25 MG Tablet TAKE 1 TABLET BY MOUTH EVERY DAY IN THE MORNING Taking FreeStyle Lancets 0 Miscellaneous used to test blood sugar daily invitro DX E11.9 once a day Taking FreeStyle Lite Test - Strip use to test blood sugar DX:E11.9 In Vitro once a day Taking ProAir HFA 90MCG Aerosol Solution INHALE 2 PUFFS EVERY 4 HOURS NEEDED Inhalation every 4 hrs Taking Carvedilol 25 MG Tablet TAKE 1 [...] as needed Inhalation every 4 hrs Taking hydroCHLOROthiazide 25 MG Tablet TAKE 1 TABLET BY MOUTH EVERY DAY IN THE MORNING Not-Taking/PRNInsulin Glargine 100 UNIT/ML Solution Pen-injector as [...] Objective: * Vitals: H t: 69.25, Wt: 181, BMI:26.53, BP:138/66, Wt-k.1. weight is down 2 pounds since 04-15-25. * Examination: G eneral Examination: GENERAL APPEARANCE: a lert, well hydrated, in no distress.? Assessment: * Assessment: 1. L iver lesion - K76.9 (Primary) 2 . P ure hypercholesterolemia - E78.00? Plan: * Treatment: 2. P ure hypercholesterolemia Notes: will observe for now * Procedure Codes: * * Sign off status: Completed true * Provider: Julio Castorena MD Date: 05/03/2025 Generated for Cory kwan/Cheyenne/Aileen on: 07/06/2025 10:21 AM EDT History and Physical Notes * HPI (History of Present Illness) Category Sub-Category Detail Notes Category Not es Symptom(s) patient is a 84 yo male here for 6 month follow up visit Examination Category Sub-Category Detail Notes Category Not es General Examination GENERAL APPEARANCE: alert, w ell hydrated, in no distress
--- OUTSIDE RECORDS SUMMARY | 2025-06-04 05:19 | XMS_ITS ---
Author Organization Juan Manuel Castorena MD Address [address] [place] [phone] Care Team Providers Care Edge Roller Name Role Phone Juan Manuel Castorena Primary Care Provider REASON FOR VISIT appt with Oncology [phone] Encounters Encounter Location Date Provider Diagnosis Juan Manuel Castorena MD 10 [facility] [address] [place] [phone] 06/04/2025 Juan Manuel Castorena Plan Of Treatment Next Appt Details Provider Name:Juan Manuel narayanan, 10/25/2025 07:30:00 AM, [address] [place] [address], [address], [phone], Provider Name:Juan Manuel Huffman ieibis, 11/01/2025 08:30:00 AM, [address] [place] [address], [address], [phone], Progress Notes * CIERA MUNIZ CDOB:1940 (84 yo M)Acc No.[id number]:06/04/2025 Patient: Shelley CIERA [place]ORA :1940 A ge:84 Y S ex:Male Address:[address] [place] [address], [address] * true * Date: Generated for Cory kwan/Cheyenne/Perezitting on: 0 07/06/2025 10:21 AM EDT
--- OUTSIDE RECORDS SUMMARY | 2025-06-11 11:15 | XMS_ITS ---
Author Organization Juan Manuel Castorena MD Address [address] [place] [phone] Care Team Providers Care Facilities Operator Name Role Phone Juan Manuel Castorena Primary Care Provider Allergies No Known Allergies REASON FOR VISIT would like to speak with the doctor Medications Medication SIG (Take, Route, Frequency, Duration) Notes Start Date End Date Status hydroCHLOROthiazide 25 MG TAKE 1 TABLET BY MOUTH EVERY DAY IN THE MORNING for 90 Active Insulin Glargine 100 UNIT/ML as directed Subcutaneous 10 units per day 03/03/2023 Not-Taking guaiFENesin-Codeine 100-10 MG/5ML 10 mL as needed Orally every 6 hrs for 10 days 09/06/2022 Not-Taking Paxlovid (300/100) 20 x 150 MG & 10 x 100MG as directed Orally 2 tabs nirm and 1 tab carola for 5 days 07/20/2022 Not-Taking Glimepiride 1MG TAKE 1 TABLET WITH BREAKFAST OR FIRST MAIN MEAL OF THE DAY Orally Once a day for 90 Not-Taking Losartan Potassium 100 MG TAKE 1 TABLET BY MOUTH EVERY DAY for 90 Active Albuterol Sulfate HFA 108 (90 Base) MCG/ACT 1 puff as needed Inhalation every 4 hrs for 30 days 02/25/2025 Active Farxiga 5 MG TAKE 1 TABLET BY MOUTH EVERY DAY IN THE MORNING Active BD Pen Needle Micro U/F 32G X 6 MM DIRECTED UNDER SKIN DAILY 90 DAYS for 90 Active Omeprazole 20 MG TAKE 1 CAPSULE BY MOUTH IN THE MORNING 30 MINS BEFORE BREAKFAST 90 for 90 Active Atorvastatin Calcium 20 MG TAKE 1 TABLET BY MOUTH EVERY DAY for 90 Active Betamethasone Dipropionate Aug 0.05 % APPLY TO AFFECTED AREA EVERY DAY for 50 Active amLODIPine Besylate 10 MG TAKE 1 TABLET BY MOUTH EVERY DAY for 90 Active Basaglar KwikPen 100 UNIT/ML 15 units Active metFORMIN HCl 500 MG TAKE 2 TABLETS BY MOUTH TWICE A DAY Active FreeStyle Lite Test - use to test blood sugar DX:E11.9 In Vitro once a day for 30 days 04/17/2019 Active ProAir HFA 90MCG INHALE 2 PUFFS EVERY 4 HOURS NEEDED Inhalation every 4 hrs Active Carvedilol 25 MG TAKE 1 TABLET BY MOUTH TWICE A DAY WITH FOOD for 90 Active FreeStyle Lancets 0 used to test blood sugar daily invitro DX E11.9 once a day for 90 days 08/12/2016 Active Vital Signs Blood pressure systolic 162 mm Hg 06/11/20 25 Blood pressure diastolic 60 mm Hg 025 Height 69.25 in 06/11/2025 Weight 179 lbs 06/11/2025 BMI 26.24 kg/m2 06/11/2025 weight is down 2 pounds [facility] 7-18-25 Encounters Encounter Location Date Provider Diagnosis Juan Manuel Castorena MD [address] [place] [address] [place] [phone] 06/11/2025 Juan Manuel Castorena Liver lesion K76.9 Assessments Encounter Date Diagnosis (ICD Code) Assessment Notes Treatment Notes Treatment Clinical Notes Section Notes 06/11/2025 Liver lesion (ICD-10 - K76.9) discussed treatment options Plan Of Treatment Treatment Notes Assessment Notes Liver lesion discussed treatment options Next Appt Details Provider Name:Juan Manuel narayanan, 10/25/2025 07:30:00 AM, [address] [place] [address], [place] [id number], [place], [place], [phone], Provider Name:Juan Manuel narayanan, 11/01/2025 08:30:00 AM, [address] [place] [address], [address], [place], [phone], Progress Notes * CIERA MUNIZ CDOB:1940 (84 yo M)Acc No.[id number]:06/11/2025 Progress Notes Patient: CIERA BEAULIEU Provider: Julio Castorena MD :1940 A ge:84 Y S ex:Male Date:06/11/2025 Address:[address] [place], [place] [phone] Subjective: * Chief Complaints: * 1 . Would like to speak with the doctor. * HPI: S ymptom(s): patient is a 84 yo male to speak with doctor. * ROS: G eneral/Constitutional: Denies C [place]. [...] NEEDED Inhalation every 4 hrs , Taking Carvedilol 25 MG Tablet TAKE [...] as needed Inhalation every 4 hrs , Taking hydroCHLOROthiazide 25 MG Tablet TAKE 1 TABLET BY MOUTH EVERY DAY IN THE MORNING , Not-Taking/PRN Insulin Glargine 100 UNIT/ML Solution [...] OF THE DAY Orally Once a day , Medication List reviewed and reconciled with the patient * Allergies: N .K.D.A. Objective: * Vitals: H t: 69.25, Wt: 179, BMI:26.24, BP:162/60, Wt-k.19. weight is down 2 pounds since 05-03-25. Assessment: * Assessment: 1. L iver lesion - K76.9 (Primary) Plan: * Treatment: * * The named appointment provid er may or may not be the originator of this progress note, and it is not deemed complete until electronically signed by the appointment provider. Sign off status: Pending * Provider: Julio Castorena MD Date: 0 06/11/2025 Generated for Cory kwan/[place]/iAleen on: 07/06/2025 10:22 AM EDT History and Physical Notes * HPI (History of Present Illness) Category Sub-Category Detail Notes Category Not es Symptom(s) patient is a 84 yo male to speak with doctor
--- OUTSIDE RECORDS SUMMARY | 2025-07-01 11:00 | XMS_ITS | Encounter Summary ---
Author Organization [facility] Address [address] [place] [address] Phone Care Team Providers Care Link Wire Fabric Machine Operator Name Role Phone Juan Manuel Castorena MD Primary Care Provider Cynthia Banerjee MD Unavailable [phone] Jolie Morales [facility] Unavailable [phone] Reason for Referral * E-Consult - New Request Specialty Diagnoses / Procedures Referred By Contact Referred To Contact Interventional Radiology Procedures Interventional Radiology E-Consult/Consult Jolie Morales MBChB [address] [place] [address] Phone: tel: fax: mailto:[email or web address] Referral ID Status Reason Start Date Expiration Date V isits Requested Visits Authorized [id number] New Request 07/02/2025 1 1 * MRI/CAT Scan - Authorized Specialty Diagnoses / Procedures Referred By Lelo maria Referred To Contact Radiology Diagnoses Hepatocellular carcinoma Procedures CT Chest Jolie Morales MBChB [address] [place] [address] Phone: tel: fax: mailto:[email or web address] Referral ID Status Reason Start Date Expiration Date V isits Requested Visits Authorized [id number] Authorized 07/01/2025 07/01/2026 1 1 Reason for Visit * Reason Comments Consult New HCC diagnosis Encounter Details Date Type Department Care Team (Latest Contact Info) Description 07/01/2025 11:00 AM EDT [facility], [address] 10[address] [place] [address] Jolie Morales MBChB [address] [place] [address] [email or web address] Hepatocellular carcinoma (Primary Dx) Social History Tobacco Use Types Packs/Day Years Used Date Smoking Tobacco: Former Cigarettes Pipe Tobacco Cessation:Counseling Given: Not Answered Alcohol Use Standard Drinks/Week Comments Not Currently 0 (1 standard drink = 0.6 oz pur e alcohol) social drinker Child or Family Care Answer Date Record ed Do you have problems with on e of the following making it difficult for you to work, study, or receive health care? No 06/25/2025 Education Answer Date Recorded Are you interested in more education? Not on gloria e 02/11/2023 Are you concerned about learning? Not on file 02/11/2023 No 02/11/2023 No 02/11/2023 Food Answer Date Recorded Within the past 6 months we worried whether our food would run out before we got money to buy more. Never True 06/25/2025 Within the past 6 months the food we bought just didn't last and we didn't have enough money to get more. Never True Residential Stability Answer Date Recor ded What is your housing situation today? I have ananth sing 06/25/2025 How many times have you move d in the past 12 months? Zero (I did not move) 06/25/2025 Paying for Meds Answer Date Recorded Do you have trouble paying for medicines? No 06/25/2025 Paying Utility Bills Answer Date Record ed Do you have trouble paying your heating or elect ricity bill? No 06/25/2025 Transportation Answer Date Recorded Has the lack of transportati on kept you from medical appointments or from getting medications? No 06/25/2025 Digital Access Answer Date Recorded No 03/12/2023 No 03/12/2023 Reliable internet access at home? Not on file 03/12/2023 Device with a working camera? Not on file Sex and Gender Information Value Date Recorded Sex Assigned at Male 06/12/2025 4:42 PM EDT Legal Sex Male 10:12 PM EDT Gender Identity Male 06/12/2025 4:42 PM EDT Sexual Orientation Straight 06/12/2025 4: 42 PM EDT documented as of this encounter Last Filed Vital Signs Vital Sign Reading Time Taken Comments Blood Pressure 156/72 07/01/2025 10:46 AM EDT Pulse 60 07/01/2025 10:46 AM EDT Temperature 36.5 C (97.7 F) 07/01/2025 10:46 AM EDT Respiratory Rate 17 07/01/2025 10:46 AM EDT Oxygen Saturation 96% 07/01/2025 10:46 AM EDT Inhaled Oxygen Concentration - - Weight 79.6 kg (175 lb 7.8 oz) 07/01/2025 10:46 AM EDT Height 178 cm (5' 10.08 ) 07/01/2025 10:46 AM ED T Body Mass Index 25.12 07/01/2025 10:46 AM EDT documented in this encounter Progress Notes * Jolie Morales, [facility] - 07/01/2025 11:00 AM EDT Images from the original note were not included. [facility] [address] [place] [address] ? [facility] ? ? Initial Consult Note Date of Service: 07/01/2025 Referred By: self PRIMARY DIAGNOSIS: Hepatocellular carcinoma DATE OF DIAGNOSIS: 05/23/2025 STAGE AT DIAGNOSIS: BCLC B CURRENT TREATMENT: n/a PRIOR TREATMENT: n/a PATHOLOGY/MOLECULAR ANALYSES: PATHOLOGIC DIAGNOSIS (reviewed at [facility]): CONSULT SLIDES FROM [facility], [place], [place] A. LIVER, RIGHT MASS, BIOPSY ([id number]; 05/23/25): Hepatocellular carcinoma, moderately differentiated. See NOTE: NOTE: Immunohistochemistry performed at the outside institution and reviewed at [facility] demonstrates the following staining profile in lesional cells: Positive - Glypican-3 (focal), arginase-1 (patchy), HSA (patchy), CKPAN. Negative - CEA. HPI: Dante Muniz is a 84 y.o. 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 his cancer related history is as described below ONCOLOGIC HISTORY: The Oncology History was reviewed with the patient and/family as documented below: Oncology History 01/17/25: incidentally found to have 2 right hepatic lobe liver masses (largest measuring 7.2x5.4cm) on ultrasound performed for workup of chronic kidney disease 03/20/25: CT A/P revealed borderline hepatomegaly with hypoattenuating lesion in seg 6 of the liver measuring 8.5x8.4cm extending to the capsule of the liver inferiorly 04/04/25: MRI abdomen w/wo contrast revealed enlarged liver and mass in th segment 5 of the right hepatic lobe measuring 7.7x5.4x6.6cm. lesion demonstrated heterogenous T2 signal with areas of centralnecrosis. Also noted tumor thrombus involving branch of the right hepatic vein. Patent portal vein. 05/02/25: PET/CT: there is a large hypermetabolic mass in seg 5 and 6. This measures ~7cm with a SUVmax of 7.49. This is most consistent with carcinoma. Of note, FDG avidity appears to extend into the right lobe of the liver along the bile ducts. 05/23/25 [facility] Liver, right mass, biopsy: hepatocellular carcinoma, grade 3. IHC staining with 06/12/25: medical oncology visit with Dr Cynthia Banerjee who discussed preference for systemic therapy CHIEF COMPLAINT: Chief Complaint Patient presents with Consult New HCC diagnosis Interval History: Presents to clinic with and son. He reports detection of liver lesions was incidental and had no symptoms at that time. He does endorse diminished exercise tolerance over the past ~6months attributed to his CKD. He used to be able to take daily walks but has now stopped. 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 Is not using anypain meds for it Denies any fevers, loss of appetite, sob, change in bowel movements, no melena Denies any heavy alcohol use. Last hepatitis B/C check was negative 12/20/2024 ROS All review of systems negative other than mentioned above. PAST MEDICAL/SURGICAL HISTORY: Past Medical History: Diagnosis Date Asthma Diabetes mellitus Hypertensive disorder Past Surgical History: Procedure Laterality Date UNCODED SURGICAL HISTORY APPENDIX UNCODED SURGICAL HISTORY WISDOM TEETH FAMILY HISTORY: Family History Problem Relation Age of Onset Breast cancer Mother Cirrhosis Father SOCIAL HISTORY: Social History Social History Narrative Not on file MEDICATIONS: Current Outpatient Medications Ordered in [facility] Medication Sig amLODIPine (NORVASC) 10 MG tablet Take 10 mg by mouth daily. atorvastatin (LIPITOR) 20 MG tablet Take 20 mg by mouth daily. carvedilol (COREG) 25 MG tablet Orally FARXIGA 5 mg tablet Take 5 mg by mouth. hydroCHLOROthiazide (HYDRODIURIL) 25 MG tablet TAKE 1 TABLET BY MOUTH EVERY DAY IN THE MORNING losartan (COZAAR) 100 MG tablet Take 100 mg by mouth daily. metFORMIN (GLUCOPHAGE) 500 MG tablet Take 500 mg by mouth 2 (two) times a day with meals. celecoxib (CELEBREX) 200 MG capsule (Patient not taking: Reported on 07/01/2025) ALLERGIES: No Known Allergies PHYSICAL EXAM: Weight: 79.6 kg (175 lb 7.8 oz) Height: 178 cm (5' 10.08 ) Temperature: 36.5 ??C (97.7 ??F) Heart Rate: 60 BP: (!) 156/72 Respiratory Rate: 17 SpO2: 96 % ECOG PS: 1- Restricted in physically strenuous activity but ambulatory and able to carry out work of a light or sedentary nature, e.g., light house work, office work General: Well-appearing, NAD HEENT: NCAT, EOMI, anicteric, oropharynx clear without mucositis or thrush Neck: Supple CV: Regular rhythm, normal rate, no murmurs Chest: Clear to auscultation bilaterally Abd: Soft, not tender, not distended, no masses, bowel sounds present Ext: No edema or cyanosis Neuro: Alert and oriented, [id number] Skin: No rash Psych: Normal affect, judgement intact LAB RESULTS: Appointment on 07/01/2025 Component Date Value Ref Range Status WBC 07/01/2025 7.55 4.00 - 10.00 K/uL Final RBC 07/01/2025 5.13 4.50 - 6.40 M/uL Final HGB 07/01/2025 14.5 13.5 - 18.0 g/dL Final HCT 07/01/2025 43.6 40.0 - 54.0 % Final PLT 07/01/2025 354 150 - 450 K/uL Final MCV 07/01/2025 85.0 80.0 - 100.0 fL Final MCH 07/01/2025 28.3 27.0 - 32.0 pg Final MCHC 07/01/2025 33.3 32.0 - 36.0 g/dL Final RDW 07/01/2025 13.8 11.5 - 14.5 % Final MPV 07/01/2025 10.4 8.4 - 12.0 fL Final NRBC 07/01/2025 0.00 0 /100 WBCs Final ABSOLUTE NRBC 07/01/2025 0.00 0 K/uL Final BLASTS 07/01/2025 0.0 0 % Final NEUTS (MANUAL) 07/01/2025 72.5 48.0 - 76.0 % Final LYMPHS 07/01/2025 15.3 (L) 18.0 - 41.0 % Final MONOS 07/01/2025 6.1 4.0 - 11.0 % Final EOSINOPHIL 07/01/2025 6.1 (H) 0.0 - 5.0 % Final BASOPHIL 07/01/2025 0.0 0.0 - 1.5 % Final ABSOLUTE NEUTS 07/01/2025 5.47 1.92 - 7.60 K/uL Final ABSOLUTE LYMPHS 07/01/2025 1.16 0.72 - 4.10 K/uL Final ABSOLUTE MONOS 07/01/2025 0.46 0.16 - 1.10 K/uL Final ABSOLUTE EOS 07/01/2025 0.46 0.00 - 0.50 K/uL Final ABSOLUTE BASO 07/01/2025 0.00 0.00 - 0.15 K/uL Final ABSOLUTE BLASTS 07/01/2025 0.00 0 K/uL Final DIFF METHOD 07/01/2025 MANUAL Final RBC MORPHOLOGY 07/01/2025 NORMAL Final SODIUM 07/01/2025 132 (L) 136 - 145 mmol/L Final POTASSIUM 07/01/2025 3.6 3.4 - 5.1 mmol/L Final CHLORIDE 07/01/2025 96 (L) 98 - 107 mmol/L Final CO2 07/01/2025 23 22 - 31 mmol/L Final BUN 07/01/2025 29 (H) 6 - 23 mg/dL Final CREATININE 07/01/2025 1.78 (H) 0.50 - 1.20 mg/dL Final GLUCOSE 07/01/2025 146 (H) 70 - 100 mg/dL Final ALBUMIN 07/01/2025 3.6 3.5 - 5.2 g/dL Final TOTAL PROTEIN 07/01/2025 7.5 6.4 - 8.3 g/dL Final CALCIUM 07/01/2025 9.6 8.8 - 10.7 mg/dL Final ALKALINE PHOSPHATASE 07/01/2025 194 (H) 40 - 129 U/L Final TOTAL BILIRUBIN 07/01/2025 0.3 0.2 - 1.2 mg/dL Final AST 07/01/2025 19 <41 U/L Final ALT 07/01/2025 10 <42 U/L Final GLOBULIN 07/01/2025 3.9 2.3 - 4.2 g/dL Final EGFR 07/01/2025 37 (L) >59 mL/min/1.73m2 Final Estimated glomerular filtration rate calculated using the CKD-EPI refit equation. ANION GAP 07/01/2025 13 7 - 17 mmol/L Final AFP (NON-MATERNAL) 07/01/2025 38,822.0 (H) <8.4 ng/mL Final No results found for: CA199 No results found for: CEA IMAGING DATA: MRI abdomen with and without gadolinium 04/04/2025 ([facility]) Findings The liver is enlarged with a craniocaudal height of 19.4 cm with evidence of lobar redistribution. There is a mass centered in segment 5 of the right hepatic lobe measuring 7.7 x 5.4 x 6.6 cm. This lesion demonstrates heterogeneous T2 signal likely with an area of central necrosis. Postcontrast imaging demonstrates peripheral enhancement which fills in on delayed phase imaging. 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 Portal vein is patent. Tiny cyst in the left hepatic lobe measuring 5 mm image 15 series 5. IMPRESSION: Morphologic changes of chronic liver disease. There is an invasive mass centered within segment five. Tumor thrombus distends an adjacent branch of the right portal vein. Findings appear most consistent with malignancy, metastatic disease versus primary hepatic malignancy. Tissue sampling is recommended. CT abdomen without iv contrast 03/19/2025 ([facility]) Borderline hepatomegaly. Hypoattenuating lesion segment 6 of the liver measures 8.5 cm in transverse diameter 8.4 cm in AP diameter and 7.3 cm in height. This is solid. This is extending to the capsule of the liver inferiorly. Renal ultrasound 01/17/2025 ([facility]) IMPRESSION: 1. Aside from small cortical cysts [...] contrast-enhanced CT of the abdomen and pelvis. Personally reviewed the images and agree with the radiology read. These findings were reviewed withthe patient. ADDITIONAL DATA: Relevant records in [facility], path report, OSH records have been reviewed and confirmed with the patient during interview as summarized above. 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 He is non-cirrhotic with preserved liver function. Presents today to discuss next steps in management. We reviewed the diagnosis of HCC, its natural history, various staging systems, and, most importantly, treatment approaches. The progression of HCC is influenced by factors such as underlying liver disease, tumor biology, and the presence of metastases. Priest risk factors include chronic viral infections from hepatitis B and C, alcoholic liver disease, and metabolic-associated liver disease (MASH).He previously tested negative for hepatitis B and C in December and denies significant alcohol use. Therefore, the most likely risk factor contributing to his HCC diagnosis is MASH, given his history oflongstanding hypertension, type 2 diabetes, and hyperlipidemia. We discussed that MASH is strongly associated with HCC in both cirrhotic and non-cirrhotic livers. Imaging revealed a solitary large mass centered in segment 5 with evidence of tumor thrombus in theright hepatic vein. His case was reviewed and discussed at our liver multidisciplinary tumor board.Considering the tumor size, his age, and comorbidities, surgical resection was deemed challenging and not a feasible option. Transarterial therapy with Y90 radioembolization could be considered as a potential option following initial systemic therapy, with the goal of downstaging the tumor. For systemic therapy, I would recommend the STRIDE regimen, which includes durvalumab and tremelimumab. We discussed the mechanism of action of immunotherapy, the potential side effects related to immune-medi ated toxicity, and the treatment schedule. As next steps, I ordered labs today, CT chest (without contrast) to complete staging and rule out metastatic disease in his chest. A referral will be made to IR to establish care and discuss potential Y90 treatment down the road pending his response to upfront durva/treme. Pt expressed desire to get his care closer to home and has already had a visit with Dr Banerjee. Plan: -check cbc, cmp, AFP, CA19.9, INR/PTT -order placed for CT chest -referral to IR to discuss potential Y90 -advised pt to schedule follow up with Dr Banerjee ([facility]) to discuss initiation of durvalumab and tremelimumab. Will route visit note to her. The patient understood the discussion above and asked appropriate questions, all of which were answered to his satisfaction. 60 minutes in ychw-yp-demw and non grac-rh-cqpf time were dedicated to today's visit, more than half was dedicated to the patient encounter. The visit included review of the diagnosis, prognosis and alternative treatment options with the patient and family. The visit also included: evaluating the history, physical examination, reviewing medications, lab tests, pathology, scans with the on-duty radiologist, discussion of the treatment plan with other physician and [facility]NA[facility] colleagues, communication, documentation and coordination of care. Jolie Morales, [facility] [address] [place] [phone] Answers submitted by the patient for this visit: Review of Systems (Submitted on 06/25/2025) Fever:: No Unexpected weight change:: No Night sweats:: No Feeling tired or fatigue:: Yes Sleep disturbance:: Yes Mouth sores:: No Nose bleeding:: No Trouble swallowing:: No Cough:: No Bloody cough:: No Shortness of breath or difficulty breathing:: No Chest pain:: No Abdominal pain:: No Blood in stool / bowel movements:: No Constipation:: No Diarrhea:: No Nausea:: No Vomiting:: No Difficulty urinating:: No Back pain:: No Muscle aches:: Yes Stiff joints:: No Skin rash:: No Dizziness:: No Unsteady gait:: No Headaches:: No Numbness:: No Extremity weakness:: Yes Swollen glands:: No Other abnormal bleeding or bruising:: No Anxiety:: Yes Depression:: No documented in this encounter Plan of Treatment Upcoming Encounters Date Type Department Care Team (Late st Contact Info) Description 07/01/2025 Procedure Pass [facility], [address] [address] 07/18/2025 1:00 PM EDT Telemedicine - audio only [facility] Radiology Angio IR Clinic [address] [place] [address] Ad Bright MD, PhD [address] [place] [phone] [email or web address] 07/25/2025 8:30 AM EDT Appointment [facility], [address] [address] Jolie Morales MBChB [address] [place] [phone] [email or web address] 08/05/2025 2:00 PM EDT Office Visit [facility], [facility] [address] 10[address] [place] [address] Jolie Morales [address] [address] [email or web address] Scheduled Orders Name Type Priority Associated Diagnoses Orde r Schedule CT Chest Imaging Routine Hepatocellular carcinoma Expected: 07/15/2025, Expires: 09/30/2025 documented as of this encounter Procedures Procedure Name Priority Date/Time Associated Diagnosis Comments LAB ADD ON Routine 07/01/2025 4:52 PM EDT Hepatocellular carcinoma LAB ADD ON Routine 07/01/2025 2:45 PM EDT Hepatocellular carcinoma documented in this encounter Results * Lab Add On: CA 19-9 (07/01/2025 4:52 PM EDT) TEST REQUESTED CA 19 9 [facility] Comments (Chemistry) TEST TO BE ADDED ON TO EXISTING SPECIMEN [facility] Blood 07/01/2025 4:52 PM EDT 07/01/2025 5:21 PM EDT us Jolie Morales [facility] LAB BLOOD ORDERABLES F inal Result [facility] [address] [place] [id number] * Lab Add On: INR/PTT (07/01/2025 2:45 PM EDT) TEST REQUESTED INR PTT [facility] Comments (Chemistry) UNABLE TO ADD TEST TO AN EXISTING SPECIMEN [facility] Comment:NO BLUE TOP TO PULL Blood 07/01/2025 2:45 PM EDT 07/01/2025 2:46 PM EDT Jolie Morales [facility] LAB BLOOD ORDERABLES F inal Result [facility] [address] [place] [address] * (ABNORMAL) AFP (non-maternal specimens) (07/01/2025 12:55 PM EDT) [facility] AFP (NON-MATERNAL) 38,822.0(H ) <8.4 ng/mL [facility] Blood 07/01/2025 12:5 5 PM EDT 07/01/2025 1:08 PM EDT Jolie Morales [facility] LAB BLOOD ORDERABLES F inal Result Performing Organization Address [facility] Co de Phone Number [facility] [address] [place] [address] * (ABNORMAL) Comprehensive metabolic panel (07/01/2025 12:55 PM EDT) [facility] SODIUM 132(L) 136 - 145 mmol/L [facility] POTASSIUM 3.6 3.4 - 5.1 mmol/L [facility] CHLORIDE 96(L) 98 - 107 mmol/L [facility] CO2 23 22 - 31 mmol/L [facility] BUN 29(H) 6 - 23 mg/dL [facility] CREATININE 1.78(H) 0.50 - 1.20 mg/dL [facility] GLUCOSE 146(H) 70 - 100 mg/dL [facility] ALBUMIN 3.6 3.5 - 5.2 g/dL [facility] TOTAL PROTEIN 7.5 6.4 - 8.3 g/dL [facility] CALCIUM 9.6 8.8 - 10.7 mg/dL [facility] ALKALINE PHOSPHATASE 194(H) 40 - 129 U/L [facility] TOTAL BILIRUBIN 0.3 0.2 - 1.2 mg/dL [facility] AST 19 <41 U/L [facility] ALT 10 <42 U/L [facility] GLOBULIN 3.9 2.3 - 4.2 g/dL [facility] EGFR 37(L) >59 mL/min/1.7 3m2 [facility] Comment:Estimated glomerular filtration rate calculated using the CKD-EPI refit equation. ANION GAP 13 7 - 17 mmol/L [facility] Blood 07/01/2025 12:5 5 PM EDT 07/01/2025 1:08 PM EDT us Jolie Morales [facility] LAB BLOOD ORDERABLES F inal Result [facility] [address] [place] [address] * (ABNORMAL) CBC with manual differential (07/01/2025 12:55 PM EDT) WBC 7.55 4.00 - 10.00 K/uL [facility] RBC 5.13 4.50 - 6.40 M/uL [facility] HGB 14.5 13.5 - 18.0 g/dL [facility] HCT 43.6 40.0 - 54.0 % [facility] PLT 354 150 - 450 K/uL [facility] MCV 85.0 80.0 - 100.0 fL [facility] MCH 28.3 27.0 - 32.0 pg [facility] MCHC 33.3 32.0 - 36.0 g/dL [facility] RDW 13.8 11.5 - 14.5 % [facility] MPV 10.4 8.4 - 12.0 fL [facility] NRBC 0.00 0 /100 WBCs [facility] ABSOLUTE NRBC 0.00 0 K/uL [facility] BLASTS 0.0 0 % [facility] NEUTS (MANUAL) 72.5 48.0 - 76.0 % [facility] LYMPHS 15.3(L) 18.0 - 41.0 % [facility] MONOS 6.1 4.0 - 11.0 % [facility] EOSINOPHIL 6.1(H) 0.0 - 5.0 % [facility] BASOPHIL 0.0 0.0 - 1.5 % [facility] ABSOLUTE NEUTS 5.47 1.92 - 7.60 K/uL [facility] ABSOLUTE LYMPHS 1.16 0.72 - 4.10 K/uL [facility] ABSOLUTE MONOS 0.46 0.16 - 1.10 K/uL [facility] ABSOLUTE EOS 0.46 0.00 - 0.50 K/uL [facility] ABSOLUTE BASO 0.00 0.00 - 0.15 K/uL [facility] ABSOLUTE BLASTS 0.00 0 K/uL [facility] DIFF METHOD MANUAL [facility] RBC MORPHOLOGY NORMAL [facility] Blood 07/01/2025 12:5 5 PM EDT 07/01/2025 1:08 PM EDT [id number] BLOOD ORDERABLES F inal Result [facility] [address] [place] [address] documented in this encounter Visit Diagnoses Diagnosis Hepatocellular carcinoma- Primary Malignant neoplasm of liver, primary documented in this encounter Care Teams Link Wire Fabric Machine Operator Relationship Specialty Start Date End Date Juan Manuel Castorena MD [address] [place] [address] [place] [address] PCP - General 10/20/17 Cynthia Banerjee MD [address] [place] [phone] [email or web address] Referring Physician Internal Medicine 06/12/25 Jolie Morales, [facility] [address] [place] [address] [place] [address] [email or web address] 06/19/25 documented as of this encounter Additional Source Comments The information contained in this document represents components of the legal health record. It is not the complete legal health record.[facility]
--- NOTE | ~2025-07-06 | CT_ITS ---
CLINICAL HISTORY: Staging for HCC. CT chest without contrast Comparison: None provided Findings: The heart size is normal. The visualized thyroid and mediastinum are unremarkable. There is ground-glass type opacification in the apical segment of the left upper lobe, acuity indeterminate. Correlate for pneumonia, hemorrhage, or pulmonary edema. There are no solid or semi solid lesions. Ill-defined hepatic lesion is partially visualized possibly related to the patient's noted HCC. The visualized upper abdomen is otherwise unremarkable. No acute fractures. IMPRESSION: 1. Apical segment left upper lobe consolidation, differential considerations noted. 2. Incompletely visualized hepatic lesion possibly corresponding to patient's noted HCC. This document has been electronically signed by: Sterling Galindo MD on 07/08/2025 08:57:04
--- OUTSIDE RECORDS SUMMARY | 2025-07-06 10:22 | XMS_ITS | Patient Health Record ---
Author Organization Juan Manuel Castorena MD Address [address] [place] [phone] Care Team Providers Care Client Support Professional Name Role Phone Juan Manuel Castorena Primary Care Provider Allergies No Known Allergies Results Component Value Reference Range Notes Hemoglobin A1c Reviewed date:07/23/2024 08:14:10 AM Interpretation: Performing Lab: Notes/Report: Hemoglobin A1c 7.5 Hemoglobin A1c Reviewed date:01/22/2025 08:26:57 AM Interpretation: Performing Lab: Notes/Report: Hemoglobin A1c 7.9 Complete Blood Count Auto Di ff Reviewed date:10/19/2024 12:22:35 PM Interpretation: Performing Lab:[facility], [address] [place] [phone] Notes/Report: White Blood Count 9.6 4.8-10.8 X10*3/uL [...] NRBC Abs Auto 0.000 0.0-0.012 X10*3/uL Comprehensive [place]. Panel Fa st Reviewed date:10/19/2024 12:27:30 PM Interpretation: Performing Lab:[facility], [address] [place] [phone] Notes/Report: Sodium 137 135-145 mmol/L Potassium 3.5 [...] Panel Reviewed date:10/19/2024 12:13:11 PM Interpretation: Performing Lab:[facility], [address] [place] [phone] Notes/Report: Bilirubin Direct 0.1 0.0-0.5 mg/dL Lipid Panel Reviewed date:10/19/2024 12:13:50 PM Interpretation: Performing Lab:[facility], [address] [place] [phone] Notes/Report: Triglycerides 302 <150 mg/dL Desirable Triglyceride: [...] (Free>4and<10) Reviewed date:10/19/2024 12:17:51 PM Interpretation: Performing Lab:[facility], [address] [place] [phone] Notes/Report: PSA,Total (Free>4and<10) 0.89 0.00-4.00 ng/mL A [...] Random Reviewed date:10/19/2024 12:16:57 PM Interpretation: Performing Lab:[address] [phone] Notes/Report: Creatinine Urine 42.80 Microalbumin Urine 1880.0 Verified by dilution Microalbum/Creatinine Ratio Ur 4392.5 <30 ug/mg cr Albumin/Creatinine Ratio Reference Ranges: Normal: < 30 ug/mg creatinine Microalbuminuria: 30 - 300 ug/mg creatinine Clinical Albuminuria: > 300 ug/mg creatinine Hemoglobin A1c Reviewed date:10/19/2024 12:17:43 PM Interpretation: Performing Lab:[address] [phone] Notes/Report: Hemoglobin A1c % 8.2 <6.0 % [...] average glucose, using the formula of the O7W-Satpyym Average Glucose study (ADAG), Diabetes Care, Vol.31,#8, May. 2007 UA ClnCatch+Micro w/rflx Cul t Reviewed date:10/19/2024 12:47:07 PM Interpretation: Performing Lab:[address] [phone] Notes/Report: Urine, Clean Catch Color Urine Yellow Appearance Urine Clear PH 6.5 5.0-9.0 Glucose Urine UA >=1000 Negative mg/dL Urine Blood Trace Negative Specific [place] - Urine 1.015 1.005-1.025 Urine Protein 300 (3+) Neg-Trace mg/dL Urine Ketones Negative Negative mg/dL Nitrite Urine Negative Negative Leukocyte Esterase Urine Negative Negative RBC Urine 0-2 0-2 /HPF WBC Urine 0-5 0-5 /HPF Squamous Epithelial Cell Urine 0-2 0-2 /HPF Bacteria Urine None Seen None Seen Hyaline Casts Urine 0-2 0-2 /LPF Blood Urea Nitrogen Reviewed date:03/12/2025 12:35:55 PM Interpretation: Performing Lab:[facility], [address] [place] [phone] Notes/Report: Blood Urea Nitrogen 32 9-16 mg/dL Creatinine Reviewed date:03/08/2025 12:42:47 PM Interpretation: Performing Lab:[address] [phone] Notes/Report: Creatinine 2.03 0.5-1.4 mg/dL Estimated Glomerular Filt Rate 31 Chronic Kidney Disease: Estimated GFR < 60 mL/min/1.73m2 Severe Kidney Disease: Estimated GFR < 15 mL/min/1.73m2 Liver Panel Reviewed date:04/22/2025 03:21:45 PM Interpretation: Performing Lab:[address] [phone] Notes/Report: Bilirubin Total 0.4 0.0-1.0 mg/dL Bilirubin Direct 0.1 0.0-0.5 mg/dL Aspartate Amino Transferase 36 5-37 U/L Alanine Aminotransferase 17 0-40 U/L Total Protein 7.3 6.5-8.0 g/dL Albumin Level 3.7 3.5-5.0 g/dL Alkaline Phosphatase 151 39-117 U/L Glucose Fasting Reviewed date:04/22/2025 03:21:36 PM Interpretation: Performing Lab:[address] [phone] Notes/Report: Glucose Fasting 155 60-99 mg/dL A fasting glucose of 126 mg/dl or greater on more than one occasion is considered diagnostic of diabetes. Lipid Panel with Reflex Reviewed date:04/23/2025 12:44:59 PM Interpretation: Performing Lab:[address] [phone] Notes/Report: Triglycerides 251 <150 mg/dL Desirable Triglyceride: [...] A1c Reviewed date:04/22/2025 12:46:09 PM Interpretation: Performing Lab:[facility], [address] [place] [phone] Notes/Report: Hemoglobin A1c % 6.7 <6.0 % [...] average glucose, using the formula of the V7G-Xkizvmp Average Glucose study (ADAG), Diabetes Care, Vol.31,#8, May. 2007 Glucose, finger stick Reviewed date:07/23/2024 08:10:10 AM Interpretation: Performing Lab: Notes/Report: Value 203 UA ClnCatch+Micro w/rflx Cul t Reviewed date:10/26/2024 01:25:07 PM Interpretation: Performing Lab:[facility], [address] [place] [phone] Notes/Report: Urine, Clean Catch Color Urine Yellow Appearance Urine Clear PH 5.5 5.0-9.0 Glucose Urine UA >=1000 Negative mg/dL Urine Blood Negative Negative Specific [place] - Urine 1.015 1.005-1.025 Urine Protein 300 [...] AM Interpretation: Performing Lab: Notes/Report: Value 196 US renal BI Reviewed date:01/24/2025 09:17:44 AM Interpretation:[facility]ACK 01/22 Performing Lab: Notes/Report: [address] [address] Ultrasound Report Signed Patient: Ciera Pretty MR#: [id number] 776 : 1940 Acct:[id number] Age/Sex: 84 / M ADM Date: 01/17/25 Loc: HO.US Attending Dr: Jean-Paul Sosa MD Ordering Physician: Jean-Paul Sosa MD Date of Service: 01/17/25 Procedure(s): US renal BI Accession Number(s): [id number] cc: Juan Manuel Castorena MD; Jean-Paul Sosa [...] 01/17/25 1550 DD/ 1501 TD/TT: 01/17/25 1512 Trench Digger Helper: [place] [id number] Ultrasound Report Signed Patient: Marlon Pretty MR#: [id number] 776 : 1940 Acct:[id number] Age/Sex: 84 / M ADM Date: 01/17/25 Loc: HO.US Attending Dr: Jean-Paul Sosa MD Ordering Physician: Jean-Paul Sosa MD Date of Service: 01/17/25 Procedure(s): US renal BI Accession Number(s): [id number] cc: Juan Manuel Castorena MD; Jean-Paul Sosa MD EXAMINATION: US RETROPERITONEAL L IMITED (RENAL ONLY) CLINICAL INFORMATION: Proteinuria, hematur ia, chronic kidney disease.. COMPARISON: None available. TECHNIQUE: Real-time imaging of the kidneys. FINDINGS: RIGHT KIDNEY: 11.8 x 5.7 x 5.9 cm (SAG x AP x TRV). The kidney is normal in size, cont our, and echogenicity. Renal cortical thickness is normal. No calculi o r suspicious focal parenchymal lesions. No hydronephrosis. Ther e is a mid pole simple cyst measuring 0.8 cm. LEFT KIDNEY: 12.1 x 5.5 x 5.3 cm (SAG x AP x TRV). The kidney is normal in size, contour, an d echogenicity. Renal cortical thickness is normal. No calculi or suspic ious focal parenchymal lesions. No hydronephrosis. There is a 1.2 cm mi d pole simple cyst laterally. Incidentally is diff usely increased hepatic echogenicity. There are 2 large right liver ma sses, the larger measuring 5.3 x 7.2 x 5.4 cm, and the smaller measurin g 2.4 x 1.7 x 2.2 cm. These are of uncertain etiology. No prior i maging for comparison purposes. U S/US renal BI IMPRESSION: 1. Aside from small [...] 03:50 PM EDT RP Dictated By: Jarrett Ballard MD Signed By: <Electron ically signed by Jarrett Stapleton MD in OV> 01/17/25 1550 DD/ 1501 TD/TT: 01/17/25 1512 Trench Digger Helper: CT abdomen wo con Reviewed date:03/21/2025 10:17:00 AM Interpretation: Performing Lab: Notes/Report: [address] [address] [address] Scan Report Signed Patient: Ciera Pretty MR#: [id number] 776 : 1940 Acct:[id number] Age/Sex: 84 / M ADM Date: 03/19/25 Loc: HO.CT Attending Dr: Juan Manuel Castorena MD Ordering Physician: Juan Manuel Castorena MD Date of Service: 03/19/25 Procedure(s): CT abdomen wo IV con Accession Number(s): [id number] cc: Juan Manuel Castorena MD Report Number: [id number]: Total DLP = 244.00 mGy-cm CLINICAL HISTORY: LIVER MASS CT abdomen without IV contrast Comparison: None Findings: Minimal subsegmental dependent atelectasis. No dependent layering pleural effusions. The heart is not enlarged. Coronary artery calcifications: Moderate. Borderline hepatomegaly. Hypoattenuating lesion segment 6 of the liver measures 8.5 cm in transverse diameter 8.4 cm in AP diameter and 7.3 cm in height. This is solid. This is extending to the capsule of the liver inferiorly. Contrast-enhanced MRI is the imaging modality of choice to further characterize this indeterminate mass. Equivocal cholelithiasis. Ultrasound would be confirmatory. No pancreatic calcifications. No splenomegaly. Normal adrenal glands. No nephrolithiasis. Normal caliber abdominal aorta. Imaged portion of the bowel unremarkable. No omental or peritoneal disease. No vertebral body compression fractures or spondylolisthesis. No bony destructive lesions. Impression: 1. Indeterminate solid hepatic mass. Multiphase contrast-enhanced MRI of the abdomen is the imaging modality of choice. 2. Equivocal cholelithiasis. 3. Calcified coronary artery disease is moderate This document has been electronically signed by: Tim Anand MD on 03/20/2025 12:26:19 Dictated By: Tim Anand MD Signed By: <Electronically signed by Tim Anand MD in OV> 03/20/25 1226 DD/ 1226 TD/TT: 03/20/25 1226 Trench Digger Helper: [place] [id number] CT Scan Report Signed Patient: Marlon Pretty MR#: [id number] 776 : 1940 Acct:[id number] Age/Sex: 84 / M ADM Date: 03/19/25 Loc: HO.CT Attending Dr: Juan Manuel Castorena MD Ordering Physician: Juan Manuel Castorena MD Date of Service: 03/19/25 Procedure(s): CT abd omen wo IV con Accession Number(s): [id number] cc: Juan Manuel Castorena MD Report Number: [id number]: Total DLP = 244.00 mGy-cm CLINICAL HISTORY: LI RIA MASS CT abdomen without I V contrast Comparison: None Findings: Minimal subsegmental dependent atelectasis. No dependent layering pleural effusions. The heart is not enlarged. Coronary artery calcifications: Moderate. Borderline hepatomeg caroline. Hypoattenuating lesion segment 6 of the liver measures 8.5 cm in transverse diameter 8.4 cm in AP diameter and 7.3 cm in height. This is karolyn d. This is extending to the capsule of the liver inferiorly. Contrast-enhanced MRI is the imaging modality of choice to further characterize this indeterminate mass. Equivocal cholelithiasis. Ultrasound would be confirmatory. No pancreatic calcifications. No splenomegaly. Normal adrenal gland s. No nephrolithiasis. Normal caliber abdominal aorta. Imaged portion of th e bowel unremarkable. No omental or peritoneal disease. No vertebral body compression fractures or spondylolisthesis. No bony destructive lesions. Impression: 1. Indeterminate jaida id hepatic mass. Multiphase contrast-enhanced MRI of the abdomen is the i maging modality of choice. 2. Equivocal cholelithiasis. 3. Calcified coronar y artery disease is moderate This document has be en electronically signed by: Tim Anand MD on 03/20/2025 12:26:19 Dictated By: Tim Magdaleno MD Signed By: <Electron ically signed by Tim Anand MD in OV> 03/20/25 1226 DD/ 1226 TD/TT: 03/20/25 1226 Trench Digger Helper: MR abdomen wo/w con Reviewed date:04/08/2025 03:28:44 PM Interpretation:[facility] 04/08 Performing Lab: Notes/Report: [place] [id number] Magnetic Resonance Report Signed Patient: Ciera Pretty MR#: [id number] 776 : 1940 Acct:[id number] Age/Sex: 84 / M ADM Date: 04/04/25 Loc: HO.MRI Attending Dr: Juan Manuel Castorena MD Ordering Physician: Juan Manuel Castorena MD Date of Service: 04/04/25 Procedure(s): MR abdomen wo/w con Accession Number(s): [id number] cc: Juan Manuel Castorena MD CLINICAL HISTORY: lever lesion MR abdomen with and without gadolinium Comparison: CT/SR - CT ABDOMEN WO IV CON - 03/19/25 15:59 EDT Findings: No significant fat or iron deposition within the liver. The liver is enlarged with a craniocaudal [...] measuring 5 mm image 15 series 5. Gallbladder is decompressed. No biliary ductal dilation. Preserved T1 parenchymal signal throughout the pancreas without ductal dilation or inflammation. The spleen is nonenlarged. No ascites or significant portosystemic collateralization. The bowel appears nondilated. Descending and sigmoid diverticulosis. Please note this MR was not optimized to evaluate the gastrointestinal tract. Kidneys demonstrate no hydronephrosis or enhancing lesions. No adrenal nodules. There are a few mildly enlarged periportal lymph nodes, nonspecific. Lung bases are unremarkable. No aggressive or destructive osseous lesions. IMPRESSION: Morphologic changes of chronic liver disease. There is an invasive mass centered within segment five. Tumor thrombus distends an adjacent branch of the right portal vein. Findings appear most consistent with malignancy, metastatic disease versus primary hepatic malignancy. Tissue sampling is recommended. Otherwise, no acute findings within the abdomen or lower chest. This document has been electronically signed by: Clarita Priest MD on 04/06/2025 08:56:48 Dictated By: Clarita Priest MD Signed By: <Electronically signed by Clarita Priest MD in OV> 04/06/25 0857 DD/ TD/TT: 04/06/2556 Trench Digger Helper: [place] [id number] Magnetic Resonance Report Signed Patient: Marlon Pretty MR#: [id number] 776 : 1940 Acct:[id number] Age/Sex: 84 / M ADM Date: 04/04/25 Loc: HO.MRI Attending Dr: Juan Manuel Castorena MD Ordering Physician: Juan Manuel Castorena MD Date of Service: 04/04/25 Procedure(s): MR abd omen wo/w con Accession Number(s): [id number] cc: Juan Manuel Castorena MD CLINICAL HISTORY: le ria lesion MR abdomen with and without gadolinium Comparison: CT/SR - CT ABDOMEN WO IV CON - 03/19/25 15:59 EDT Findings: No significant fat o r iron deposition within the liver. The liver is enlarged with a craniocaudal height of 19.4 cm with evidence of lobar redistribution. Ther e is a mass centered in segment 5 of the right hepatic lobe measuring 7.7 x 5.4 x 6.6 cm. This lesion demonstrates heterogeneous T2 signal likely wit h an area of central necrosis. Postcontrast imaging demonstrates periphe ral enhancement which fills in on delayed phase imaging. This appear s to be an infiltrative mass and is associated with tumor thrombosis of a branch of the right hepatic vein. Portal vein is patent. Tiny cyst in the left hepatic lobe measuring 5 mm image 15 series 5. Gallbladder is decompressed. No biliary ductal dilation. Preserved T1 parenchymal signal throughout the pancreas without ductal dilation or inflammation. The sp earl is nonenlarged. No ascites or significant portosystemic collateralization. The bowel appears nondilated. Descending and sigmoid diverticulosis. Please note this MR was not optimized to evaluate the gastrointestinal tract. Kidneys demon strate no hydronephrosis or enhancing lesions. No adrenal nodules. There are a few mild ly enlarged periportal lymph nodes, nonspecific. Lung bases are unremarkab le. No aggressive or destructive osseous lesions. IMPRESSION: Morphologic changes of chronic liver disease. There is an invasive mass centered within segm ent five. Tumor thrombus distends an adjacent branch of the right portal vein. Findings appear most consistent with malignancy, metastatic disease v ersus primary hepatic malignancy. Tissue sampling is recommended. Otherwise, no acute findings within the abdomen or lower chest. This document has be en electronically signed by: Clarita Priest MD on 04/06/2025 08:56:48 Dictated By: Clarita Priest MD Signed By: <Electron icallguerita signed by Clarita Priest MD in OV> 04/06/25 0857 DD/ 5 TD/TT: 04/06/25855 Trench Digger Helper: LUDMILA chest 2V Reviewed date:04/12/2025 10:36:07 AM Interpretation: Performing Lab: Notes/Report: [address] [address] XRay Report Signed Patient: Ciera Pretty MR#: [id number] 776 : 1940 Acct:[id number] Age/Sex: 84 / M ADM Date: 04/10/25 Loc: JACKIE Attending Dr: Juan Manuel Castorena MD Ordering Physician: Juan Manuel Castorena MD Date of Service: 04/10/25 Procedure(s): XR chest 2V Accession Number(s): [id number] cc: Juan Manuel Castorena MD EXAMINATION: XR CHEST 2 VIEWS HISTORY: LIVER LESION COMPARISON: There are no prior studies available for comparison. FINDINGS: PA and lateral views of the chest are submitted. The lungs are expanded and clear. There is no pleural effusion, pneumothorax, or pulmonary vascular congestion. The heart is normal in size. There is calcification of the aorta. There is degenerative disc disease of the spine. XR/XR chest 2V IMPRESSION: Clear lungs. Electronically signed by: Ori Hart MD 04/10/2025 09:44 AM EDT Dictated By: Ori Hart MD Signed By: <Electronically signed by Ori Hart MD in OV> 04/10/25 0944 DD/ 0830 TD/TT: 04/10/25 0842 Trench Digger Helper: [place] [id number] XRay Report Signed Patient: Marlon Pretty MR#: [id number] 776 : 1940 Acct:[id number] Age/Sex: 84 / M ADM Date: 04/10/25 Loc: JACKIE Attending Dr: Juan Manuel Castorena MD Ordering Physician: Juan Manuel Castorena MD Date of Service: 04/10/25 Procedure(s): XR chest 2V Accession Number(s): [id number] cc: Juan Manuel Castorena MD EXAMINATION: XR CHES T 2 VIEWS HISTORY: LIVER LESION COMPARISON: There ar e no prior studies available for comparison. FINDINGS: PA and lat eral views of the chest are submitted. The lungs are expanded and eb ar. There is no pleural effusion, pneumothorax, or pulmonary vascular congestion. The heart is normal in size. There is calcification of the aorta. There is degenerative disc disease of the spine. X R/XR chest 2V IMPRESSION: Clear lungs. Electronically david d by: Ori Hart MD 04/10/2025 09:44 AM EDT RP Dictated By: Ori Hart MD Signed By: <Jose ervin signed by Ori Hart MD in OV> 04/10/2544 DD/ 9 TD/TT: 04/10/25 0842 Trench Digger Helper: Lia Sena Reviewed date:04/22/2025 12:45:31 PM Interpretation: Performing Lab:[facility], [address] [place] [phone] Notes/Report: Lia Sena See Note Specimen held untested for 24 hours; Call to request Chemistry testing. Complete Blood Count Auto Di ff Reviewed date:05/23/2025 03:20:30 PM Interpretation: Performing Lab:[facility], [address] [place] [phone] Notes/Report: White Blood Count 6.9 4.8-10.8 X10*3/uL Red Blood Count 5.17 4.60-5.80 X10*6/uL Hemoglobin 14.9 14.0-18.0 g/dl Hematocrit 43.7 42.0-52.0 % Mean Corpuscular Volume 84.5 80.0-98.0 fL Mean Corpuscular Hemoglobin 28.8 27.0-33.0 pg Mean Corpuscular HGB Conc 34.1 31.0-36.0 g/dl Red Cell Distribution Width 13.5 11.0-16.0 % Platelet Count 276 160-400 X10*3/uL Mean Platelet Volume 10.6 9.4-12.4 fL Neutrophils Percent Auto 65.4 45-73 % Imm Gran Pct Auto 0.3 0.0-0.4 % Lymphocytes Percent Auto 17.2 20-40 % Monocytes Percent Auto 8.4 2-11 % Eosinophils Percent Auto 8.0 0-4 % Basophils Percent Auto 0.7 0-2 % NRBC Pct Auto 0.0 0.0-0.2 /100WBC Neutrophils Absolute Auto 4.5 2.0-8.3 x10*3/uL Imm Gran Abs Auto 0.02 0.00-0.03 X10*3/uL Lymphocytes Absolute Auto 1.2 1.2-4.9 X10*3/uL Monocytes Absolute Auto 0.6 0.1-1.2 X10*3/uL Eosinophils Absolute Auto 0.6 0.0-0.4 X10*3/uL Basophils Absolute Auto 0.1 0.0-0.2 X10*3/uL NRBC Abs Auto 0.000 0.0-0.012 X10*3/uL Prothrombin Time INR Reviewed date:05/23/2025 03:12:36 PM Interpretation: Performing Lab:[facility], [address] [place] [phone] Notes/Report: Prothrombin Time 11.8 10.9-12.4 SEC INTERNATIONAL NORM RATIO 1.0 0.9-1.1 INTERNATIONAL NORMALIZED RATIO (INR) REFERENCE RANGES Reference Range For patients not on anticoagulant therapy: 0.9 - 1.1 INR ranges for oral anticoagulant therapy: For prevention and treatment of venous thrombosis and pulmonary embolism: 2.0 - 3.0 For acute myocardial infarction with aspirin therapy: 2.0 - 3.0 For acute myocardial infarction without aspirin therapy: 3.0 - 4.0 For patients with mechanical prosthetic heart valves: 2.5 - 3.5 Partial Thromboplastin Time Reviewed date:05/23/2025 03:20:03 PM Interpretation: Performing Lab:[facility], [address] [place] [phone] Notes/Report: Partial Thromboplastin Time 31.5 26.7-34.1 SEC Glucose, Whole Blood Reviewed date:05/23/2025 03:20:51 PM Interpretation: Performing Lab:[facility], [address] [place] [phone] Notes/Report: Glucose, Whole Blood 164 60-115 mg/dL METER # : [id number] Pathology Reviewed date:05/31/2025 12:45:33 PM Interpretation: Performing Lab:[facility], [address] [place] [phone] Notes/Report: ------ Name: Elle Pretty Age/Sex: 84/M : 1940 Unit#: [id number] Attend Dr: Juan Manuel Castorena MD Re05/23/25 Status : [facility] Location: [facility] Disch: ------ SPEC : [id number] RECD : 05/23/25-1432 STATUS: LORETO [place] NUM: [id number] WIN: 05/23/25-1345 [facility] DR: Jean Claude Carlson SERVICE GIRL ENTERED: 05/23/25-14 33 SP TYPE: Surgical OTHR DR: Juan Manuel Castorena MD ORDERED: HE Stain/2, Gross Micro L5, IHC, Add. COMMENTS: Block A1 s ent to CRISTOPHER for Arginase/Glypican IHC's on 05/24/25. Diagnosis Liver, right mass, b iopsy: Hepatocellular carcinoma, grade 3. Clinical History Liver mass Microscopic Description Microscopic sections reviewed. By immunohistochemistry, the tumor cells are reactive with pancytokeratin, HSA (focal) and arginase; they are non-immunoreactive with glypican and CEA. Material Received 5 18 g core samples from right liver mass Gross Description Received in formalin , on Telfa, labeled ?right lobe liver lesion? are thin, friable cylindrical portions of anderson-white and red-pink soft tissue measuring 0.2-0.7 cm in length all with a diameter of 0.05 cm which are wrapped in lens paper and entirely submitted for microscopic examinat ion, 5 pieces in cassette A1 and 4 pieces in cassette A2. ([facility]) This case was review ed intradepartmentally; results discussed with Dr. Castorena on 05/31/2025. Special studies orde red and performed: Immunostains for pancytokeratin, CEA, HSA, glypican and arginase Technical services f or glypican and arginase immunohistochemistry studies performed at [facility] SHANITA Zhang; CLIA #[id number] IHC S/NG Disclaimer NOTE: Unless otherwi se stated, all tissue is formalin-fixed and paraffin-embedded. Some or all of the immunohistochemical tests reported herein may have been developed and their performance characteristics determined by [facility]. They have not been cleared or appr lizeth by the U.S. Food and Drug Administration (FDA). However, the FDA has determined that such clearance or approval is not necessary. This laboratory is certified under the Clinical Laboratory Improvement Amendments of 1988 (CLIA) as qualified to perform high comp lexity clinical laboratory testing. CONTINUED ON NEXT PAGE ------ Name: SukhwinderElle jenifer Age/Sex: 84/M : 1940 Unit#: [id number] Attend Dr: Juan Manuel Castorena MD Re05/23/25 Status : [facility] Location: [facility] Disch: ------ SPEC : [id number] RECD : 05/23/25-516 STATUS: LORETO CUNNINGHAM NUM: [id number] WIN: 05/23/25-[address]: Jean Claude Carlson SERVICE GIRL ENTERED: 05/23/25-14 33 SP TYPE: Surgical OTHR DR: Juan Manuel Castorena MD ORDERED: HE Stain/2, Gross Micro L5, IHC, Add. COMMENTS: Block A1 s ent to CRISTOPHER for Arginase/Glypican IHC's on 05/24/25. Copies To: Juan Manuel Castorena MD [facility] [address] [place] [address] [id number] Jean Claude Carlson SERVICE GIRL [address] [place] [address] ------ Signed (signature on file) Chas Trent MD 05/31/25 0943 ------ END OF REPORT Type and Screen Reviewed date:05/23/2025 03:05:49 PM Interpretation: Performing Lab:[facility], [address] [place] [phone] Notes/Report: Blood Type ON Antibody Screen NEGATIVE US biopsy liver Reviewed date:05/24/2025 04:59:05 PM Interpretation: Performing Lab: Notes/Report: [address] [address] Ultrasound Report Signed Patient: Ciera Pretty MR#: [id number] 776 : 1940 Acct:[id number] Age/Sex: 84 / M ADM Date: 05/23/25 Loc: HO.SSS Attending Dr: Juan Manule Castorena MD Ordering Physician: Juan Manuel Castorena MD Date of Service: 05/23/25 Procedure(s): US biopsy liver Accession Number(s): [id number] cc: Juan Manuel Castorena MD Clinical history: Liver mass PROCEDURES: 1. Limited preprocedure ultrasound of the abdomen. Permanent images saved in PACS. 2. Ultrasound-guided biopsy of the right lobe liver mass. 3. Limited preprocedure ultrasound of the abdomen. Permanent images saved in PACS. CLINICIANS: Jean Claude Carlson NP MEDICATIONS: -Versed , Fentanyl , and lidocaine 1% 5 mL SQ -Antibiotics: None -For additional details, please see nursing flowsheet. COMPLICATIONS: None ESTIMATED BLOOD LOSS: < 5 ml CONTRAST: None SPECIMENS: 5 x 18 g cores were sent to pathology MODERATE SEDATION TIME: 15 min PROCEDURE NOTE: The procedure, risks, benefits, and alternatives were carefully explained to the patient and written informed consent was obtained. The patient was placed supine on the exam table. A timeout was performed. A limited ultrasound of the abdomen was performed to localize the right lobe liver mass and choose appropriate needle entry and trajectory. The patient was prepped and draped in usual sterile fashion. The skin and deeper soft tissues were anesthetized with lidocaine. Under ultrasound guidance, a 17 gauge trocar needle was advanced to the liver lesion. An 18 gauge biopsy device was inserted through the trocar needle advanced into the liver lesion. A total of 5,18 gauge cores were performed. The specimens were placed in formalin. A total of 2 Gelfoam torpedoes were then administered through the trocar needle into the biopsy tract and at the level of the liver capsule. The needle was removed. A limited post procedure ultrasound was then performed. Images were saved in PACS. A dry dressing was applied and secured with Tegaderm. There were no immediate complications. The patient was stable after the procedure and was transferred to the post anesthesia care unit. The procedure was done under moderate sedation with a dedicated nurse for monitoring of vital signs. US/US biopsy liver Impression: Ultrasound-guided biopsy of a right lobe liver mass. This procedure was performed by Jean Claude Carlson NP and supervised by Nicki Laureano MD . Electronically signed by: Carlyle Laureano MD 05/24/2025 01:54 PM EDT RP Dictated By: Jean Claude Carlson NP Signed By: <Electronically signed by Jean Claude Carlson in OV> 05/24/25 1354 <Electronically signed by Carlyle Laureano MD in OV> 05/24/25 1357 DD/ 1300 TD/TT: 05/23/25 1340 Trench Digger Helper: [place] [id number] Ultrasound Report Signed Patient: Marlon Pretty MR#: [id number] : 1940 Acct:[id number] Age/Sex: 84 / M ADM Date: 05/23/25 Loc: [facility] Attending Dr: Juan Manuel Castorena MD Ordering Physician: Juan Manuel Castorena MD Date of Service: 05/23/25 Procedure(s): Neurolink liver Accession Number(s): [id number] cc: Juan Manuel Castorena MD Clinical history: Li ria mass PROCEDURES: 1. Limited preproced ure ultrasound of the abdomen. Permanent images saved in PACS. 2. Ultrasound-guided biopsy of the right lobe liver mass. 3. Limited preproced ure ultrasound of the abdomen. Permanent images saved in PACS. CLINICIANS: Jean Claude Carlson NP MEDICATIONS: -Versed , Fentanyl , and lidocaine 1% 5 mL SQ -Antibiotics: None -For additional deta ils, please see nursing flowsheet. COMPLICATIONS: None ESTIMATED BLOOD LOSS : < 5 ml CONTRAST: None SPECIMENS: 5 x 18 g cores were sent to pathology MODERATE SEDATION TI ME: 15 min PROCEDURE NOTE: The procedure, risks , benefits, and alternatives were carefully explained to the pat ient and written informed consent was obtained. The patient was placed s upine on the exam table. A timeout was performed. A limited ultrasound o f the abdomen was performed to localize the right lobe liver mass and choose appropriate needle entry and trajectory. The patient was prepped and draped in usual sterile fashion. The skin and deeper soft tissues were anesthetized with lidocaine. Under ultrasound tho dance, a 17 gauge trocar needle was advanced to the liver lesion. An 18 gauge biopsy device was inserted through the trocar needle advanced into the liver lesion. A total of 5,18 gauge cores were performed. The speci mens were placed in formalin. A total of 2 Gelfoam torpedoes were then administered through the trocar needle into the biopsy tract and at the level of the liver capsule. The needle was removed. A limited p ost procedure ultrasound was then performed. Images were saved in PACS. A dry dressing was applied and secured with Tegaderm. There were no immediate complications. The patient was stab le after the procedure and was transferred to the post anesthesia care unit. The procedure was do ne under moderate sedation with a dedicated nurse for monitoring of vi sivakumar signs. U S/US biopsy liver Impression: Ultrasound-guided bi opsy of a right lobe liver mass. This procedure was performed by Jean Claude Carlson NP and supervised by Nicki Laureano MD . Electronically david d by: Carlyle Laureano MD 05/24/2025 01:54 PM EDT RP Dictated By: Jean Claude Carlson NP Signed By: <Electron ically signed by Jean Claude Carlson in OV> 05/24/25 1354 <Electronically sign ed by Carlyle Laureano MD in OV> 05/24/25 1357 DD/ 1300 TD/TT: 05/23/25 1340 Trench Digger Helper: Alessio Haddad. Panel Reviewed date:06/12/2025 08:00:52 PM Interpretation: Performing Lab:[facility], [address] [place] [phone] Notes/Report: Sodium 135 135-145 mmol/L Potassium 3.8 3.3-5.1 mmol/L Chloride 99 96-108 mmol/L Carbon Dioxide 26 22-29 mmol/L Anion Gap 14 12-20 Blood Urea Nitrogen 23 9-16 mg/dL Creatinine 1.80 0.5-1.4 mg/dL Creatinine Clr Calc Pharmacy TNP Unable to calculate eCrCL; all parameters not provided. Estimated Glomerular Filt Rate 36 Chronic Kidney Disease: Estimated GFR < 60 mL/min/1.73m2 Severe Kidney Disease: Estimated GFR < 15 mL/min/1.73m2 Glucose Random 133 60-115 mg/dL Calcium 9.2 8.4-10.2 mg/dL Bilirubin Total 0.5 0.0-1.0 mg/dL Aspartate Amino Transferase 38 5-37 U/L Alanine Aminotransferase 15 0-40 U/L Total Protein 7.3 6.5-8.0 g/dL Albumin Level 3.7 3.5-5.0 g/dL Alkaline Phosphatase 189 39-117 U/L Alpha Fetoprotein Reviewed date:06/14/2025 06:49:03 PM Interpretation: Performing Lab:[facility], [address] [place] [phone] Notes/Report: Alpha Fetoprotein 25393.0 <6.1 ng/mL This test was performed using the Rosey Nicola chemiluminescent method. Values obtained from different assay methods cannot be used interchangeably. AFP levels, regardless of value, should not be interpreted as absolute evidence of the presence or absence of disease. THIS TEST WAS PERFORMED AT: [facility] [address] [place] [phone] GLORIA HERNANDEZ MD Liver Fibrosis Pnl Reviewed date:06/20/2025 05:00:11 PM Interpretation: Performing Lab:[facility], [address] [place] [phone] Notes/Report: Liver Fibrosis Score 0.84 Liver Fibrosis Stage F4 Liver Fibrosis Interpretation SEE NOTE severe fibrosis Fibro Test Score (f) Metavir Score f>=0 and f<=0.21 : F0 (no fibrosis) f>0.21 and f<=0.27 : F0-F1 (no fibrosis) f>0.27 and f<=0.31 : F1 (minimal fibrosis) f>0.31 and f<=0.48 : F1-F2 (minimal fibrosis) f>0.48 and f<=0.58 : F2 (moderate fibrosis) f>0.58 and f<=0.72 : F3 (advanced fibrosis) f>0.72 and f<=0.74 : F3-F4 (advanced fibrosis) f>0.74 and f<=1.00 : F4 (severe fibrosis) Nec Inflam Act Score 0.08 Nec Inflam Act Grade A0 Nec Inflam Act Interpretation SEE NOTE no activity ActiTest Score (a) Metavir Score a>=0 and a<=0.17 : A0 (no activity) a>0.17 and a<=0.29 : A0-A1 (no activity) a>0.29 and a<=0.36 : A1 (minimal activity) a>0.36 and a<=0.52 : A1-A2 (minimal activity) a>0.52 and a<=0.60 : A2 (significant activity) a>0.60 and a<=0.62 : A2-A3 (significant activity) a>0.62 and a<=1.00 : A3 (severe activity) DMD-Piuca-1-Macroglobu jaime 545 106-279 mg/dL Unusual deviation with median value. FIB-Haptoglobin 422 43-212 mg/dL This value is highly elevated over the 99 percentile. Check the value and the absence of sepsis. Usual maximum value is 320.0 mg/dl. FIB-Apolipoprotein A1 130 94-176 mg/dL FIB-Total Bilirubin 0.4 0.2-1.2 mg/dL FIB-GGT 127 3-70 U/L FIB-ALT 12 9-46 U/L Reference ID [id number] Footnote SEE NOTE The reliability of results is dependent on compliance with the preanalytical and analytical conditions recommended by [employer]. The tests have to be deferred for: acute hemolysis, acute hepatitis, acute inflammation, extra hepatic cholestasis. The advice of a specialist should be sought for interpretation in chronic hemolysis and Gilbert's syndrome. The test interpretation is not validated in liver transplant patients. Isolated extreme values of one of the components should lead to caution in interpreting the results. In case of discordance between a biopsy result and a test, it is recommended to seek the advice of a specialist. The causes of these discordances could be due to a flaw of the test or to a flaw in the biopsy: i.e. a liver biopsy has a 33% variability rate for one fibrosis stage. FibroTest is interpretable for chronic hepatitis B and C, alcoholic and non alcoholic steatosis. ActiTest is interpretable for chronic hepatitis B and C. The performance characteristics have been determined by [facility]. It has not been cleared or approved by the U.S. Food and Drug Administration. Performance characteristics refer to the analytical performance of the test. [employer], the associated logo, [facility] and all associated [facility] sheth are the registered trademarks of [employer]. All third constitution party sheth - (R) and (TM) - are the property of their respective owners. (C) [id number] [employer]. All rights reserved. THIS TEST WAS PERFORMED AT: [facility] [address] [place] [address] PATTY LUO MD,PHD,MULU Hepatitis A,B,C Profile Reviewed date:06/12/2025 08:00:25 PM Interpretation: Performing Lab:[facility], [address] [place] [phone] Notes/Report: Hepatitis A Antibody IgM Nonreactive Nonreactive IgM antibodies to HAV not detected; does not exclude early acute or recovered HAV infection. Hepatitis B Surface Antibody NONREACTIVE Nonreactive Nonreactive: < 8.00 mIU/mL Hepatitis B Core Antibody Nonreactive Nonreactive Hepatitis C Antibody Nonreactive Nonreactive Antibodies to HCV not detected; does not exclude early acute HCV infection. Hepatitis B Surface Antigen Negative Negative Reason For Referral Reason Elevated creatinine Diagnosis 1 Creatinine elevation (R79.89) Referral Organization Juan Manuel Castorena MD Referring Provider First Name Juan Manuel Referring Provider Last Name Raffaele Referring Provider Speciality Internal M edicine Referred Provider Maria Rodrigues Referred Provider Specialty Nephrology General Notes Nancy Trivedi 0 10/26/2024 11:58:11 AM > info visitFarooq Annette 10/30/2024 02:06:50 PM > [facility] 11/02/2024 02:24:25 PM > referral info mailed to patient Referral Priority Routine Referral Appointment Date 12/20/2024 Reason Pruritic rash Diagnosis 1 Pruritic rash (L28.2 ) Referral Organization Juan Manuel Castorena MD Referring Provider First Name Juan Manuel Referring Provider Last Name Raffeale Referring Provider Speciality Internal M edicine Referred Provider Aristeo Calvert DermatAristeo sandoval Referred Provider Specialty Dermatology General Notes Nancy Trivedi 0 10/26/2024 08:39:59 AM >patient wants [place] office info faxed, Nancy Trivedi 11/19/2024 07:33:49 AM > info mailed to patient Referral Priority Routine Referral Appointment Date 05/08/2025 Reason Referral for Diabeti c felt strip finisher Diagnosis 1 Type 2 diabetes laurel itus without complication (E11.9) Referral Organization Juan Manuel Castorena MD Referring Provider First Name Juan Manuel Referring Provider Last Name Raffaele Referring Provider Speciality Internal M edicine Referred Provider Kristen Escobar Referred Provider Specialty Nutrition General Notes Nancy Trivedi 0 03/15/2025 11:21:22 AM > info faxedFarooq Annette 03/22/2025 10:58:28 AM >was told to refaxedFarooq Annette 03/29/2025 03:09:52 PM >was told patient is aware of appt Referral Priority Routine Referral Appointment Date 04/03/2025 Reason liver lesion Diagnosis 1 Liver lesion (K76.9) Referral Organization Juan Manuel Castorena MD Referring Provider First Name Juan Manuel Referring Provider Last Name Raffaele Referring Provider Speciality Internal edicine Referred Provider CALLIE HARRIS Referred Provider Specialty Hematology/O ncology General Notes Nancy Trivedi 0 06/07/2025 03:24:24 PM >patient is aware of appt Referral Priority Routine Referral Appointment Date 06/12/2025 Medications Medication SIG (Take, Route, Frequency, Duration) Notes Start Date End Date Status Losartan Potassium 100 MG TAKE 1 TABLET BY MOUTH EVERY DAY for 90 Active ProAir HFA 90MCG INHALE 2 PUFFS EVERY 4 HOURS NEEDED Inhalation every 4 hrs Active Albuterol Sulfate HFA 108 (90 Base) MCG/ACT 1 puff as needed Inhalation every 4 hrs for 30 days 02/25/2025 Active Carvedilol 25 MG TAKE 1 TABLET BY MOUTH TWICE A DAY WITH FOOD for 90 Active hydroCHLOROthiazide 25 MG TAKE 1 TABLET BY MOUTH EVERY DAY IN THE MORNING for 90 Active FreeStyle Lite Test - use to test blood sugar DX:E11.9 In Vitro once a day for 30 days 04/17/2019 Active Atorvastatin Calcium 20 MG TAKE 1 TABLET BY MOUTH EVERY DAY for 90 Active Insulin Glargine 100 UNIT/ML as directed Subcutaneous 10 units per day 03/03/2023 Not-Taking Betamethasone Dipropionate Aug 0.05 % APPLY TO AFFECTED AREA EVERY DAY for 50 Active guaiFENesin-Codeine 100-10 MG/5ML 10 mL as needed Orally every 6 hrs for 10 days 09/06/2022 Not-Taking amLODIPine Besylate 10 MG TAKE 1 TABLET BY MOUTH EVERY DAY for 90 Active Paxlovid (300/100) 20 x 150 MG & 10 x 100MG as directed Orally 2 tabs nirm and 1 tab carola for 5 days 07/20/2022 Not-Taking Basaglar KwikPen 100 UNIT/ML 15 units Active Glimepiride 1MG TAKE 1 TABLET WITH BREAKFAST OR FIRST MAIN MEAL OF THE DAY Orally Once a day for 90 Not-Taking metFORMIN HCl 500 MG TAKE 2 TABLETS BY MOUTH TWICE A DAY Active Farxiga 5 MG TAKE 1 TABLET BY MOUTH EVERY DAY IN THE MORNING Active BD Pen Needle Micro U/F 32G X 6 MM DIRECTED UNDER SKIN DAILY 90 DAYS for 90 Active FreeStyle Lancets 0 used to test blood sugar daily invitro DX E11.9 once a day for 90 days 08/12/2016 Active Omeprazole 20 MG TAKE 1 CAPSULE BY MOUTH IN THE MORNING 30 MINS BEFORE BREAKFAST 90 for 90 Active Immunizations Vaccine Route Administration Date Status [...] Problem Status W/U Status Risk Notes Problem 991775571 Gastro-esophagea l reflux disease without esophagitis (K21.9) Active confirmed Problem 4883278 Arthritis (M19.90) Active confirmed Problem 984034608 Elevated LFTs (R79.89) Active confirm ed Problem 58881659 Essential hypert ension (I10) Active confirmed Problem 218991220 Mild intermitten t asthma without complication (J45.20) Active confirmed Problem 78908499 Type 2 diabetes mellitus without complication (E11.9) Active confirmed Problem 012286019 Low HDL (under 4 0) (E78.6) Active confirmed Problem 708610027 Esophageal dysmo tility (K22.4) Active confirmed Problem 72282611 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) Active confirmed Problem 34771105 Peptic ulcer (K27.9) Active confirmed Problem 520838546 Hypertriglycerid emia (E78.1) Active confirmed Problem 153461711 Pure hypercholesterolemia (E78.00) Active confirmed Problem 59587338 Proteinuria, unspecified type (R80.9) Active confirmed Problem Lesion of liver (644495750) Liver lesion (K76.9) Active confirmed Problem 82356336 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 confirmed Problem 12147003 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) Active confirmed Vital Signs Blood pressure diastolic 60 mm Hg 06/11/2025 panda ght is down 2 pounds since 05-03-25 Height 69.25 in 06/11/2025 weight is down 2 pounds since 05-03-25 Blood pressure systolic 162 mm Hg 06/11/2025 weig ht is down 2 pounds since 05-03-25 Weight 179 lbs 06/11/2025 weight is down 2 pounds since 05-03-25 BMI 26.24 kg/m2 06/11/2025 weight is down 2 pounds since 05-03-25 Encounters Encounter Location Date Provider Diagnosis Juan Manuel Castorena MD [address] [place] [address] [id number] 10/19/2024 Juan Manuel Castorena Essential hypertensi on I10 ; Type 2 diabetes mellitus without complication E11.9 ; Pure hypercholesterolemia E78.00 and Elevated LFTs R79.89 Juan Manuel Castorena MD [address] [place] [address] [id number] 03/08/2025 Juan Manuel Castorena Encounter for preprocedural laboratory examination Z01.812 Juan Manuel Castorena MD [address] [place] [address] [id number] 04/22/2025 Juan Manuel Castorena Type 2 diabetes laurel itus without complication E11.9 and Pure hypercholesterolemia E78.00 Juan Manuel Castorena MD [address] [place] [address] [id number] 06/11/2025 Juan Manuel Castorena Liver lesion K76.9 Juan Manuel Castorena MD [address] [place] [address] [id number] 07/23/2024 Juan Manuel Castorena Type 2 diabetes laurel itus without complication E11.9 and Essential hypertension I10 Juan Manuel Castorena MD [address] [place] [address] [id number] 10/26/2024 Juan Manuel Castorena Microscopic hematuri a R31.29 ; Elevated serum creatinine R79.89 ; Pruritic rash L28.2 ; Cardiac murmur R01.1 and Type 2 diabetes mellitus without complication E11.9 Juan Manuel Castorena MD [address] [place] [address] [id number] 01/22/2025 Juan Manuel Castorena Type 2 diabetes laurel itus without complication E11.9 ; Proteinuria, unspecified type R80.9 and Liver mass R16.0 Juan Manuel Castorena MD [address] [place] [address] [id number] 03/15/2025 Juan Manuel Castorena Liver mass R16.0 and Type 2 diabetes mellitus without complication E11.9 Juan Manuel Castorena MD [address] [place] [address] [id number] 04/08/2025 Juan Manuel Castorena Liver lesion K76.9 Juan Manuel Castorena MD [address] [place] [address] [id number] 04/15/2025 Juan Manuel Ferreiraer Liver lesion K76.9 Juan Manuel Castorena MD [address] [place] [address] [id number] 05/03/2025 Juan Manuel Castorena Liver lesion K76.9 a nd Pure hypercholesterolemia E78.00 Juan Manuel Castorena MD [address] [place] [address] [id number] 11/06/2024 Juan Manuel Castorena MD [address] [place] [address] [id number] 11/16/2024 Juan Manuel Castorena MD [address] [place] [address] [id number] 01/28/2025 Juan Manuel Castorena Liver mass R16.0 Juan Manuel Castorena MD [address] [place] [address] [id number] 02/25/2025 Juan Manuel Castorena Mild intermittent as thma without complication J45.20 Juan Manuel Castorena MD [address] [place] [address] [id number] 03/21/2025 Juan Manuel Castorena Liver lesion K76.9 Juan Manuel Castorena MD [address] [place] [address] [id number] 05/02/2025 Juan Manuel Castorena Liver lesion K76.9 Juan Manuel Castorena MD [address] [place] [address] [id number] 06/04/2025 Juan Manuel Castorena Assessments Encounter Date Diagnosis (ICD Code) Assessment Notes Treatment Notes Treatment Clinical Notes Section Notes 10/19/2024 Essential hypertensi on (ICD-10 - I10) 10/19/2024 Type 2 diabetes mellitus without complication (ICD-10 - E11.9) 03/08/2025 Encounter for preprocedural laboratory examination (ICD-10 - Z01.812) 04/22/2025 Type 2 diabetes mellitus without complication (ICD-10 - E11.9) 06/11/2025 Liver lesion (ICD-10 - K76.9) discussed treatment options 07/23/2024 Type 2 diabetes mellitus without complication [...] need for further diagnostic testing of liver 03/15/2025 Liver mass (ICD-10 - R16.0) cancel the contrast for the scan next week and do ct abdomen without contrast/ Ct ordder faxed to [facility] CS dept , also they were called with this info 04/08/2025 Liver lesion (ICD-10 - K76.9) Total time spent on the date of the encounter is 35 minutes including both face to face time spent and time spent reviewing documentation,janine dies and counseling the patient. 04/15/2025 Liver lesion (ICD-10 - K76.9) order will be faxed to [facility] PET dep/ the lesion is concerning for metastatic disease and chest xray failed to show anything.will get the pet scan which could be more informative. have explained that eventually will come to a biopsy. the last visit the patient had a difficult time understanding the seriiousnesss of the lesion and now seems ready to move on Total time spent on the date of the encounter is 35 minutes including both face to face time spent and time spent reviewing documentation, studies and counseling the patient. 05/03/2025 Liver lesion (ICD-10 - K76.9) will arrange biopsy. not on tuesday this week 01/28/2025 Liver mass (ICD-10 - R16.0) 02/25/2025 Mild intermittent asthma without complication (ICD-10 - J45.20) 03/21/2025 Liver lesion (ICD-10 - K76.9) Order printed and Nancy to fax to MRI 05/02/2025 Liver lesion (ICD-10 - K76.9) 10/19/2024 Pure hypercholesterolemia (ICD-10 - E78.00) 04/22/2025 Pure hypercholesterolemia (ICD-10 - E78.00) 10/26/2024 Pruritic rash (ICD-1 0 - L28.2) referral to [facility] [place] 01/22/2025 Liver mass (ICD-10 - R16.0) order faxed to [facility] , pending diagnostic testing 03/15/2025 Type 2 diabetes mellitus without complication (ICD-10 - E11.9) referral to diabetic felt strip finisher 05/03/2025 Pure hypercholesterolemia (ICD-10 - E78.00) will observe for now 10/19/2024 Elevated LFTs (ICD-1 0 - R79.89) 10/26/2024 Cardiac murmur (ICD- 10 - R01.1) pending diagnostic testing 10/26/2024 Type 2 diabetes mellitus without complication (ICD-10 - E11.9) not at goal, advised on diet, will contiue to monitor and will contnue current regiment 04/08/2025 Other discussed findings with patient and , need to speak to the radiologist that read the mri plan on biopsy late april/ 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 Plan Of Treatment Pending Test Test Name Order Date CT ABD NO CONTRAST 03/15/2025 CT ABD NO CONTRAST 01/22/2025 CT ABD W&WO CONTRAST 01/28/2025 XR CHEST 2 VIEW PA & LAT 04/08/2025 XR GI SERIES 06/02/2021 US LIVER BIOPSY CORE GUIDE 05/03/2025 ECHO 10/26/2024 CT biopsy liver 05/03/2025 MR abdomen wo/w con 03/21/[address] fusion skull to thigh 05/02/[address] fusion whole body 04/15/2025 US scrotum 10/21/2022 Next Appt Details Provider Name:Juan Manuel narayanan, 10/25/2025 07:30:00 AM, [address] [place] [address], [address], [place], [place], [id number], Provider Name:Juan Manuel narayanan, 11/01/2025 08:30:00 AM, [address], [address], [place], [place], [id number], Insurance Providers Payer Name Payer Address Payer Phone Subscriber Number Group Number Insured Name Patient Relationship to Insured Coverage Start Date Coverage End Date [employer] [address] [place] [address] [id number] CIERA PRETTY Self - patient is the insured [employer] [facility] [address] [place], [place] [id number] [phone] [id number] [id number] CIERA Self - patient is the insured Medical (General) History Medical History History ICD Code tribenzor is amlodipine,benicar and hctz refuses colonoscopy , 2013, 2014 (DON'T ASK AGAIN); 09/20/19 refused cologuard
--- OUTSIDE RECORDS SUMMARY | 2025-07-06 10:22 | XMS_ITS | Clinical Summary ---
Author Organization [facility]. Address [address] [place] [phone] Phone Care Team Providers Care Wood Experimental Mechanic Name Role Phone Juan Manuel Castorena MD [...] disea se, not otherwise specified 12/19/2024 12/20/2024 Social History Tobacco Use Types Packs/Day Years [...] Office Visit [facility] [address] [phone] Jean-Paul Sosa MD [facility] [address] [phone] Health Maintenance Due Date Last Done Comments Pneumococcal Vaccine: 50+ Years (1 of 2 - PCV) 960 Hepatitis B Vaccine (1 of 3 - Risk 3-dose series) 10/17 Diabetes: Hemoglobin A1C 10/30/2024 Diabetes: Ophthalmology Exam 10/30/2024 Diabetes: Pedal Pulse Checked 10/30/2024 Diabetes: Sensory Foot Exam 10/30/2024 Diabetes: Visual Foot Exam 10/30/2024 Influenza Vaccine (#1) 2025 Insurance Medicare [facility] Care Teams Wood Experimental Mechanic Relationship Specialty Start Date End Date Juan Manuel Castorena MD [address] [place] [address] [address] [place], [place] PCP - General Internal Medicine 10/29/24
--- OUTSIDE RECORDS SUMMARY | 2025-07-06 10:22 | XMS_ITS | Encounter Summary ---
Author Organization [facility] Address [address] [place] [address] [place] [phone] Phone Care Team Providers Care Paint Pourer Name Role Phone Juan Manuel Castorena MD Primary Care Provider Cynthia Banerjee MD Unavailable [phone] Jolie Morales [facility] Unavailable Encounter Details Date Type Department Care Team (Late st Contact Info) Description 06/02/2021 Transcribe Orders Virtual Department [address] [place] [phone] Juan Manuel Castorena MD [address] [place] [address] [place] [address] Peptic ulcer (Primary Dx) Social History Tobacco Use Types Packs/Day Years Used Date Smoking Tobacco: Never Assessed Sex and Gender Information Value Date Recorded Sex Assigned at Male 06/12/2025 4:42 PM EDT Legal Sex Male 10:12 PM EDT Gender Identity Male 06/12/2025 4:42 PM EDT Sexual Orientation Straight 06/12/2025 4: 42 PM EDT documented as of this encounter Plan of Treatment Upcoming Encounters Date Type Department Care Team (Late st Contact Info) Description 07/01/2025 Procedure Pass [facility], Ct Scan - Main Hospital [address] [place] [address] 07/18/2025 1:00 PM EDT Telemedicine - audio only [facility] Radiology Angio IR Clinic [address] [place] [address] Ad Bright MD, PhD [address] [place] [phone] [email or web address] 07/25/2025 8:30 AM EDT Appointment [facility], Ct Scan - [address] [address] Jolie Morales, [address] [address] [email or web address] 08/05/2025 2:00 PM EDT Office Visit [facility], [address], 10th [place] [address] Jolie Morales, [address] [address] [email or web address] documented as of this encounter Results * [...] suggest gastric ulcers. Juan Manuel Castorena MD ON LICENSE OF [facility] Final R esult documented in this encounter Visit Diagnoses Diagnosis Peptic ulcer- Primary Peptic ulcer, unspecified site, unspecified as acute or chronic, without mention of hemorrhage, perforation, or obstruction Peptic ulcer Peptic ulcer, unspecified site, unspecified as acute or chronic, without mention of hemorrhage, perforation, or obstruction documented in this encounter Care Teams Paint Pourer Relationship Specialty Start Date End Date Juan Manuel Castorena MD [address] [place] [address] [place] [address] PCP - General 10/20/17 Cynthia Banerjee MD [address] [place] [address] [email or web address] Referring Physician Internal Medicine 06/12/25 Jolie Morales, [facility] [address] [place] [address] [place] [address] [email or web address] 06/19/25 documented as of this encounter Additional Source Comments The information contained in this document represents components of the legal health record. It is not the complete legal health record.[facility]
--- OUTSIDE RECORDS SUMMARY | 2025-07-06 10:22 | XMS_ITS | Clinical Summary ---
Author Organization [facility] Address [address] [place] [phone] Phone Care Team Providers Care Organ Pipe Voicer Name Role Phone Juan Manuel Castorena MD Primary Care Provider Cynthia Banerjee MD Unavailable [phone] Jolie Morales [facility] Unavailable [phone] Allergies No known active allergies Medications losartan (COZAAR) 100 MG tablet Take 100 mg by mouth daily. Active amLODIPine (NORVASC) 10 MG tablet Take 10 mg by mouth daily. Active atorvastatin (LIPITOR) 20 MG tablet Take 20 mg by mouth daily. Active carvedilol (COREG) 25 MG tablet Orally Active metFORMIN (GLUCOPHAGE) 500 MG tablet Take 500 mg by mouth 2 (two) times a day with meals. Active celecoxib (CELEBREX) 200 MG capsule 10/19/2019 Active FARXIGA 5 mg tablet Take 5 mg by mouth. 12/03/2019 Active hydroCHLOROthia zide (HYDRODIURIL) 25 MG tablet TAKE 1 TABLET BY MOUTH EVERY DAY IN THE MORNING 11/18/2019 Active Active Problems No known active problems Encounters Date Type Department Care Team Description 07/01/2025 11:00 AM EDT Office Visit [facility], [facility] [place] [address] [facility], 10th [place] [address] Jolie Morales MBChB Hepatocellular carcinoma (Primary Dx) 06/28/2025 Ancillary Orders DF IMG OUTSIDE IMG [address] [place] [address] Jolie Morales, MBChB 06/28/2025 Ancillary Orders DF IMG OUTSIDE IMG [address] [place] [address] Jolie Morales, MBChB 06/28/2025 Ancillary Orders DF IMG OUTSIDE IMG [address] [place] [address] Jolie Morales, MBChB 06/28/2025 Ancillary Orders DF IMG OUTSIDE IMG [address] [place] [address] Jolie Morales, [facility] 06/28/2025 Ancillary Orders DF IMG OUTSIDE IMG [address] [place] [address] Jolie Morales, MBChB 06/21/2025 1:45 PM EDT - 06/21/2025 11:59 PM EDT Hospital Encounter [facility], [address] [address] Discharge Disposition: Home or Self Care 06/19/2025 Orders Only [facility], [address], 10[address] [place] [address] Jolie Morales, MBChB Malignant neoplasm of liver, unspecified liver malignancy type (Primary Dx) 05/23/2025 Ancillary Procedure [facility] IMG OUTSIDE IMG [address] [place] [address] Jolie Morales, MBChB 05/02/2025 9:51 AM EDT - 05/02/2025 11:59 PM EDT Hospital Encounter [facility], Pet/Ct - [address] [address] Juan Manuel Castorena MD Discharge Disposition: Home or Self Care 05/01/2025 Transcribe Orders Virtual Department [address] [place] [address] Juan Manuel Castorena MD Liver lesion (Primary Dx) 04/10/2025 Ancillary Procedure DF IMG OUTSIDE IMG [address] [place] [phone] Jolie Morales, [facility] from Last 3 Months Family History Medical History Relation Comments Cirrhosis Father Breast cancer Mother Relation Status Comments Father Mother Social History Tobacco Use Types Packs/Day Years [...] Orientation Straight 06/12/2025 4: 42 PM EDT Last Filed Vital Signs Vital Sign Reading [...] Mass Index 25.12 07/01/2025 10:46 AM EDT Plan of Treatment Upcoming Encounters Date Type Department Care Team (Late st Contact Info) Description 07/01/2025 Procedure Pass [facility], [address] [address] 07/18/2025 1:00 PM EDT Telemedicine - audio only [facility] Radiology Angio IR Clinic [address] [place] [address] Ad Bright MD, PhD [address] [place] [address] [email or web address] 07/25/2025 8:30 AM EDT Appointment [facility], [address] [address] Jolie Morales, [address] [address] [email or web address] 08/05/2025 2:00 PM EDT Office Visit [facility], [facility] [address], 10th [place] [address] Jolie Morales, [address] [place] [address] [email or web address] Health Maintenance Due Date Last Done Comments DEPRESSION SCREENING 1952 HEPATITIS A VACCINES (1 of 2 - Risk 2-dose series) 1959 INFLUENZA VACCINE (#1) 2025 , 06/24/2023, 06/29/2022, Additional history exists COVID-19 VACCINE ( season) 2025 07/03/2024, 07/12/2023, 10/20/2022, Additional history exists CREATININE LEVEL 07/01/2026 07/01/2025 POTASSIUM LEVEL 07/01/2026 07/01/2025 Adult Td,Tdap Booster 10/13/2027 10/13/2017 ZOSTER VACCINES Completed 09/11/2018, 06/18, 03/07/2012 PNEUMOCOCCAL VACCINES (50+ years) Completed 02/25/2023, 08/15/2017, 01/22/2013, Additional history exists RSV VACCINE Completed 07/21/2023 HIB VACCINES Aged Out No longer eligi ble based on patient's age to complete this topic MENINGOCOCCAL VACCINES (ACWY) Aged Out No longer eligible based on patient's age to complete this topic MENINGOCOCCAL VACCINES (B) Aged Out N o longer eligible based on patient's age to complete this topic Medical Devices Not on file Procedures Procedure Name Priority Date/Time Associated Diagnosis Comments LAB ADD ON Routine 07/01/2025 4:52 PM EDT Hepatocellular carcinoma LAB ADD ON Routine 07/01/2025 2:45 PM EDT Hepatocellular carcinoma CA-19-9 Routine 07/01/2025 12:55 PM EDT AFP (NON-MATERNAL SPECIMENS) Routine 07/01/2025 12:55 PM EDT Hepatocellular carcinoma COMPREHENSIVE METABOLIC PANEL Routine 07/01/2025 12:55 PM EDT Hepatocellular carcinoma HC DFCI MANUAL DIFFERENTIAL Routine 07/01/2025 12:55 PM EDT Hepatocellular carcinoma OUTSIDE PATHOLOGY REVIEW Routine 05/23/2025 12:00 AM EDT OUTSIDE PATHOLOGY 05/23/2025 US ABDOMEN OUTSIDE (NO INTERPRETATION) Routine 05/23/2025 12:00 AM EDT OUTSIDE PROCEDURE 05/23/[address] SKULL BASE TO MID THIGHS Routine 05/02/2025 11:13 AM EDT Liver lesion XR CHEST OUTSIDE (NO INTERPRETATION) Routine 04/10/2025 12:00 AM EDT OUTSIDE IMAGING 04/10/2025 from Last 3 Months Results * Lab Add On: CA 19-9 (07/01/2025 4:52 PM EDT) Only the most recent of2 resultswithin the time period is included. Pathologist [facility] [place] TEST REQUESTED CA 19 9 [facility] Comments (Chemistry) TEST TO BE ADDED ON TO EXISTING SPECIMEN [facility] Blood 07/01/2025 4:52 PM EDT 07/01/2025 5:21 PM EDT Jolie Morales [facility] LAB BLOOD ORDERABLES F inal Result [facility] [address] [place] [address] * (ABNORMAL) CBC with manual differential (07/01/2025 12:55 PM EDT) WBC 7.55 4.00 - 10.00 K/uL [facility] RBC 5.13 4.50 - 6.40 M/uL [facility] HGB 14.5 13.5 - 18.0 g/dL [facility] HCT 43.6 40.0 - 54.0 % [facility] PLT 354 150 - 450 K/uL [facility] MCV 85.0 80.0 - 100.0 fL [facility] MCH 28.3 27.0 - 32.0 pg [facility] MCHC 33.3 32.0 - 36.0 g/dL [facility] RDW 13.8 11.5 - 14.5 % [facility] MPV 10.4 8.4 - 12.0 fL [facility] NRBC 0.00 0 /100 WBCs [facility] ABSOLUTE NRBC 0.00 0 K/uL [facility] BLASTS 0.0 0 % [facility] NEUTS (MANUAL) 72.5 48.0 - 76.0 % [facility] LYMPHS 15.3(L) 18.0 - 41.0 % [facility] MONOS 6.1 4.0 - 11.0 % [facility] EOSINOPHIL 6.1(H) 0.0 - 5.0 % [facility] BASOPHIL 0.0 0.0 - 1.5 % [facility] ABSOLUTE NEUTS 5.47 1.92 - 7.60 K/uL [facility] ABSOLUTE LYMPHS 1.16 0.72 - 4.10 K/uL [facility] ABSOLUTE MONOS 0.46 0.16 - 1.10 K/uL [facility] ABSOLUTE EOS 0.46 0.00 - 0.50 K/uL [facility] ABSOLUTE BASO 0.00 0.00 - 0.15 K/uL [facility] ABSOLUTE BLASTS 0.00 0 K/uL [facility] DIFF METHOD MANUAL [facility] RBC MORPHOLOGY NORMAL [facility] Blood 07/01/2025 12:5 5 PM EDT 07/01/2025 1:08 PM EDT us Jolie Ramses Andrew [facility] LAB BLOOD ORDERABLES F inal Result [facility] [address] [place] [address] * (ABNORMAL) Comprehensive metabolic panel (07/01/2025 12:55 PM EDT) SODIUM 132(L) 136 - 145 mmol/L [facility] POTASSIUM 3.6 3.4 - 5.1 mmol/L [facility] CHLORIDE 96(L) 98 - 107 mmol/L [facility] CO2 23 22 - 31 mmol/L [facility] BUN 29(H) 6 - 23 mg/dL [facility] CREATININE 1.78(H) 0.50 - 1.20 mg/dL [facility] GLUCOSE 146(H) 70 - 100 mg/dL [facility] ALBUMIN 3.6 3.5 - 5.2 g/dL [facility] TOTAL PROTEIN 7.5 6.4 - 8.3 g/dL [facility] CALCIUM 9.6 8.8 - 10.7 mg/dL [facility] ALKALINE PHOSPHATASE 194(H) 40 - 129 U/L [facility] TOTAL BILIRUBIN 0.3 0.2 - 1.2 mg/dL [facility] AST 19 <41 U/L [facility] ALT 10 <42 U/L [facility] GLOBULIN 3.9 2.3 - 4.2 g/dL [facility] EGFR 37(L) >59 mL/min/1.7 3m2 [facility] Comment:Estimated glomerular filtration rate calculated using the CKD-EPI refit equation. ANION GAP 13 7 - 17 mmol/L [facility] Blood 07/01/2025 12:5 5 PM EDT 07/01/2025 1:08 PM EDT us Jolie Morales [facility] LAB BLOOD ORDERABLES F inal Result Performing Organization Address [facility] Co de Phone Number [facility] [address] [place] [address] * (ABNORMAL) CA-19-9 (07/01/2025 12:55 PM EDT) CA 19-9 39(H) 0 - 35 U/mL [facility] 07/01/2025 12:5 5 PM EDT 07/01/2025 1:08 PM EDT us Jolie Morales [facility] LAB BLOOD ORDERABLES F inal Result Performing Organization Address [facility] Co de Phone Number [facility] [address] [place] [address] * (ABNORMAL) AFP (non-maternal specimens) (07/01/2025 12:55 PM EDT) AFP (NON-MATERNAL) 38,822.0(H ) <8.4 ng/mL [facility] Blood 07/01/2025 12:5 5 PM EDT 07/01/2025 1:08 PM EDT us Jolie Morales [facility] BLOOD ORDERABLES F inal Result Performing Organization Address [facility] Co de Phone Number [facility] [address] [place] [address] * Outside Procedure (05/23/2025) us Scanning Interface Provider PROCEDURE/MINOR SURG ICAL PERFORMABLES Final Result * Outside Pathology (05/23/2025) us Scanning Interface Provider PATHOLOGY ORDERABLES Final Result * Outside Pathology Review (05/23/2025 12:00 AM EDT) 05/23/2025 06/21/2025 [facility] - 06/26/2025 5:37 PM EDT CASE: [id number] PATIENT: CIERA MUNIZ Date: 1940 Sex: Male [facility] Department of Pathology [address] [place] [address] CLIA License No.: [id number] Facility Designer: Dr. Jose Felipe MD, PhD Physician: YARY TOM MD Resident: Kristian Rowley MD Pathologist: Rk Lopez M.D. PATHOLOGIC DIAGNOSIS: CONSULT SLIDES FROM [facility], [place], [place] A. LIVER, RIGHT MASS, BIOPSY ([id number]; 05/23/25): Hepatocellular carcinoma, moderately differentiated. See NOTE: NOTE: Immunohistochemistry performed at the outside institution and reviewed at [facility] demonstrates the following staining profile in lesional cells: Positive - Glypican-3 (focal), arginase-1 (patchy), HSA (patchy), CKPAN. Negative - CEA. CLINICAL DATA: History: None provided TISSUE SUBMITTED: Consult slides. GROSS DESCRIPTION: Received from [facility], Department of Pathology, [address] [place] [address], are twelve (12) slides. Twelve (12) stained slides are labeled [id number] and sublabeled A1-1 , A1-2 , A1-3 , GPC3 , ARG , HSA , HSAC , GOODE , PANC , CEA , CEAC and A2-1 which correspond to a liver, right mass, biopsy obtained on 05/23/25, according to the accompanying pathology report bearing the patient's name and date of . By his/her signature below, the senior physician certifies that he/she personally conducted a microscopic examination ( gross only exam if so stated) of the described specimen(s) and rendered or confirmed the diagnosis(es) related thereto. Final Diagnosis by Rk Lopez M.D., Electronically signed on Thursday June 26, 2025 at 05:36:59PM us Yary Tom MD PATHOLOGY ORDERABLES Fi nal Result [facility] [address] [place] [address] * US Abdomen Outside (No Interpretation) (05/23/2025 12:00 AM EDT) Other Narrative [facility] - 06/28/2025 8:09 AM EDT This study is for PACS storage only and not for interpretation. us Jolie Morales [facility] IMG OUTSIDE IMAGING W/ OUT INTERPRETATION Final Result Performing Organization Address [facility] Co de Phone Number PERCK[facility]STIAN_H * NM PET CT Skull Base to Mid Thighs (05/02/2025 11:13 AM EDT) Anatomical Region Laterality Modality Positron Emissio n Tomography (PET) Narrative 05/02/2025 10:02 AM EDT [place] us Juan Manuel Castorena MD IMG NM PET Final R esult * Outside Imaging Report Only (04/10/2025) us Scanning Interface Provider IMG XR CHEST Shital l Result * XR Chest Outside (No Interpretation) (04/10/2025 12:00 AM EDT) Other Narrative [facility] - 06/28/2025 8:10 AM EDT This study is for PACS storage only and not for interpretation. us Jolie Morales [facility] IMG OUTSIDE IMAGING W/ OUT INTERPRETATION Final Result Performing Organization Address [facility] Co de Phone Number [facility] from Last 3 Months Insurance MEDICARE PART A & B [employer] SUPPLEMENT MEDICARE PART A & B [employer] SUPPLEMENT MEDICARE PART A & B [employer] SUPPLEMENT MEDICARE PART A & B [employer] MED[employer] SUPPLEMENT MEDICARE PART A & B [employer] SUPPLEMENT MEDICARE PART A & B [employer] SUPPLEMENT MEDICARE PART A & B [facility] MEDEX SUPPLEMENT MEDICARE PART A & B [employer] SUPPLEMENT MEDICARE PART A & B [employer] SUPPLEMENT Care Teams Organ Pipe Voicer Relationship Specialty Start Date End Date Juan Manuel Castorena MD [address] [place] [address] [place] [address] PCP - General 10/20/17 Cynthia Banerjee MD [address] [place] [address] [email or web address] Referring Physician Internal Medicine 06/12/25 Jolie Morales, [facility] [address] [place] [address] [place] [address] [email or web address] 06/19/25 Additional Source Comments The information contained in this document represents components of the legal health record. It is not the complete legal health record.[facility]
== END 2025-07-06 10:20 | disposition home or self-care (01) ==
LOC: HO.CT 10:19
PROVIDERS: PCP Internal Medicine; Visit Provider Internal Medicine Medical Oncology
DX: C22.0 Liver cell carcinoma (principal)
CPT/HCPCS: 71250

== ENCOUNTER → 2025-07-06 10:21 | Outpatient (BNV) | payer MEDICARE, SELFPAY | PROVIDERS: PCP Internal Medicine; Visit Provider Specialist | DX: R91.8 Other nonspecific abnormal finding of lung field (principal); K76.89 Other specified diseases of liver | CPT/HCPCS: 71250 ==